=== PATIENT | male | born 1955 | race Caucasian/White ===

== ENCOUNTER → 2017-12-29 06:14 | Outpatient (CLI) | payer MEDICAID, SELFPAY ==
--- NOTE | 2017-12-29 08:42 | STRESSREP ---
Stress Test Report Pharmacologic myocardial perfusion stress test. 62-year-old man with a history of chest pain. Stress protocol: Resting EKG demonstrates normal sinus rhythm with a rate of 79 bpm resting blood pressure is 140/90 mmHg. On 4 mg of regadenoson was infused per usual protocol followed by rapid intravenous saline flush injection continuous EKG monitoring was performed. The heart rate was 98 bpm which was 62% of maximum predicted heart rate the maximum workload attained was 1 metabolic equivalent. At rest there were no ST or T-wave changes noted to suggest abnormal flow reserve at peak infusion no ST or T-wave changes were noted to suggest abnormal flow reserve. No clinical angina was noted. Myocardial perfusion protocol: 15.0 mCi of technetium 99m sestamibi was injected at rest. 0.4 mg regadenoson was infused per usual protocol. At peak infusion 45.0 mCi of technetium 99m sestamibi was injected. Stress images were obtained. Stress and rest images were reconstructed and compared in the short axis vertical long and horizontal long axis. Gated images were also obtained. Perfusion SPECT analysis: Review of the stress images demonstrate normal uptake of tracer noted in the septum anterior wall and lateral wall. The mid inferior lateral and basal wall has a medium-sized defect on the stress images. The resting images demonstrate mild improvement in this area suggesting mild ischemia noted in the basal inferior wall as well as the basal inferolateral wall. Gated SPECT analysis: The gated ejection fraction is noted to be 42%. Conclusion: Pharmacologic myocardial perfusion stress test with evidence of basal inferior ischemia and basal inferolateral ischemia.
== END ==
PROVIDERS: Visit Provider Nurse Practitioner Family
DX: I25.10 Atherosclerotic heart disease of native coronary artery without angina pectoris (principal); R07.9 Chest pain, unspecified
CPT/HCPCS: 78452; 93017; A9500; A4216; J2785

== ENCOUNTER → 2018-01-22 07:06 | Outpatient (CLI) | payer MEDICAID, SELFPAY ==
[2018-01-22 09:03] LABS: Absolute Lymphocyte Count 3.24 X10^3/ul (0.83-4.51); Absolute Neutrophil Count 7.4 X10^3/uL (2.0-7.7); Basophil# 0.04 X10^3/uL; Basophil% 0.3 % (0-1); Eosinophil# 0.21 X10^3/uL; Eosinophils% 1.7 % (0-5); Hematocrit 49.3 % (40-54); Hemoglobin 16.2 g/dl (13.0-16.5); Lymphocyte # 3.24 X10^3/ul (4.0); Lymphocyte % 25.7 % (19-41); Mean Corp Hgb Conc 32.9 g/gl (32-36); Mean Corpuscular Hgb 31.8 pg (27.0-32.0); Mean Corpuscular Volume 96.7 fL (80-94); Mean Platelet Vol. 11.7 fl (6.2-12.0); Monocyte# 1.59 X10^3/uL; Monocyte% 12.6 % (0-10); Neutrophil # 7.43 X10^3/uL (2.7-7.7); Platelet Count 255 K/mm3 (150-450); RBC Distribution Width CV 13.5 % (11.6-14.6); RBC Distribution Width SD 47.9 fl (35.1-43.9); White Blood Count 12.6 K/mm3 (4.4-11.0)
[2018-01-22 09:04] LABS: Differential Indicated SCAN CRITERIA MET; POSITIVE COUNT NO; POSITIVE DIFFERENTIAL YES; POSITIVE MORPHOLOGY NO
[2018-01-22 09:05] LABS: International Normalized Ratio 1.1; Prothrombin Time (Protime)PT. 13.8 SECONDS (11.7-14.9)
[2018-01-22 09:25] LABS: Anion Gap 7 (5-15); BUN 12 mg/dL (7-18); BUN/Creat Ratio 11.2 RATIO (10-20); Calcium,Total 8.4 mg/dL (8.5-10.1); Chloride 104 mmol/L (98-107); Creatinine, Serum 1.07 mg/dL (0.70-1.30); EST Glomerular Filtration Rate 74 mL/min (>60); Est Glom Filt Rate - Afr Amer 90 mL/min (>60); Glucose 121 mg/dL (74-106); Potassium 3.7 mmol/L (3.5-5.1); Sodium Level 141 mmol/L (136-145)
[2018-01-22 09:33] LABS: Reactive Lymphocyte RARE
[2018-01-22 14:01] LABS: ALB/GLOB Ratio 1.2 RATIO (0.9-2.4); AST(SGOT) 34 U/L (15-37); Alanine Aminotransfer ALT/SGPT 59 U/L (16-61); Albumin, Serum 3.8 g/dL (3.2-5.0); Alkaline Phosphatase 63 U/L (45-117); Anion Gap 7 (5-15); BUN 13 mg/dL (7-18); BUN/Creat Ratio 11.9 RATIO (10-20); Calcium,Total 8.2 mg/dL (8.5-10.1); Chloride 106 mmol/L (98-107); Cholesterol 210 mg/dL (200); Creatinine, Serum 1.09 mg/dL (0.70-1.30); EST Glomerular Filtration Rate 73 mL/min (>60); Est Glom Filt Rate - Afr Amer 88 mL/min (>60); Globulin 3.3 g/dL (2.2-4.2); Glucose 122 mg/dL (74-106); High Density Lipoprotein 28 mg/dL; Potassium 3.8 mmol/L (3.5-5.1); Protein, Total 7.1 g/dL (6.4-8.2); Sodium Level 141 mmol/L (136-145); Triglycerides 189 mg/dL; Very Low Density Lipoprotein 38 mg/dL (5-40)
[2018-01-22 14:39] LABS: Hemoglobin A1c 6.3 % (4.2-6.3)
== END ==
PROVIDERS: Visit Provider Internal Medicine Cardiovascular Disease
DX: I25.10 Atherosclerotic heart disease of native coronary artery without angina pectoris (principal); I10 Essential (primary) hypertension; R73.09 Other abnormal glucose; R07.9 Chest pain, unspecified
CPT/HCPCS: 36415; 80048; 80053; 80061; 83036; 85025; 85610

== ENCOUNTER → 2018-01-23 14:10 | Outpatient (CLI) | payer MEDICAID, SELFPAY ==
--- NOTE | 2018-01-23 14:11 | RAD_ITS ---
STUDY: X-RAY CHEST REASON FOR EXAM: Male, 62 years old. Chest pain. Increased shortness of breath. TECHNIQUE: PA and lateral views of the chest. COMPARISON: Comparison is made with prior study dated October 11, 2016. FINDINGS: Stable increased interstitial markings at the lung bases suggest mild bibasilar scarring. There is no demonstrated pleural abnormality. Normal size heart. Normal mediastinum and skyler. Normal visualized pulmonary arteries. There is atherosclerotic tortuosity of the aortic arch and descending thoracic aorta. There are degenerative changes of the visualized thoracic spine. Normal visualized ribs, clavicles, and shoulders. There is no demonstrated abnormality of the visualized soft tissue structures of the upper abdomen. RAD/Chest PA and Lateral IMPRESSION: Stable mild increased markings at the lung bases suggestive of bibasilar scarring. Electronically Signed: Shashi Strong MD at 14:34 EDT Tel [phone], Service support ,
== END ==
PROVIDERS: Visit Provider Internal Medicine Cardiovascular Disease
DX: I25.10 Atherosclerotic heart disease of native coronary artery without angina pectoris (principal); R07.9 Chest pain, unspecified
CPT/HCPCS: 71046

== ENCOUNTER → 2018-01-24 06:48 | Day surgery (SDC) | payer MEDICAID, SELFPAY ==
[2018-01-23 10:33] VITALS: BMI 42.7
--- NOTE | 2018-01-24 12:41 | CL.D_ITS ---
Patient Name: ALEJANDRO BASS Study Date: 01/24/2018 Performing: Clifford Pena MD Ht: 73 inches 185.42 cm : 1955 Wt: 340.4 lbs 154.22 kg Age: 62 Gender: male BSA: 2.7 PROCEDURE(S) PERFORMED [id number]/LV CLINICAL PROFILE AND INDICATIONS INDICATIONS: 62-year-old man with a history of shortness of breath and chest discomfort. Stress/Imaging Stress/Image Study Performed: No CAD Presentations: Stable angina. CONCLUSIONS Known occluded right coronary artery with [id number] collaterals. Moderate disease noted in the c ircumflex artery. RECOMMENDATIONS Medical therapy DESCRIPTION OF PROCEDURE The patient arrived to the procedure lab. The risks and benefits of the procedure as well as a full d escription of our services here and current unavailability of surgical backup were fully explained to the patient and/or their significant other prior to the catheterization. The Timeout was completed, verifying the correct patient and procedure. The patient's procedural site was prepped and draped in the usual fashion. Local anesthetic was given subcutaneously to right radial region with Lidocaine 2% . Using a modified Seldinger technique, arterial access was obtained via the right radial artery, a 6 Fr sheath was inserted. Left Coronary Artery selective angiography was performed in multiple views u sing a 5 Fr. 4.0 [place] catheter. Right Coronary Artery selective angiography was then performed in mu ltiple views using a 5 Fr. 4.0 [place] catheter. Left Ventriculography was performed in JARAMILLO projection using a 5 Fr. Pigtail catheter. LV to AO pullback pressures were then recorded.The arterial sheath wa s pulled and a TR Band was applied for hemostasis. 18cc air CORONARY ANGIOGRAPHY DOMINANCE: Right Dominant LEFT HEART ASSESSMENT Left Ventricular Ejection Fraction: by LV Gram 45 % Inferior Basal Akinesis Normal Left Ventricular systolic function LEFT MAIN: Angiographically normal LEFT ANTERIOR DECENDING ARTERY: Mild luminal irregularities CIRCUMFLEX ARTERY: Mild luminal irregularities OM 3: Proximal - 70 % Stenosis COLLATERAL FLOW: Collateral flow from Left to Right COMPLICATIONS No Complications PROCEDURE MEDICATIONS Fentanyl 50 mcg IV Versed 1 mg IV Versed 1 mg IV Oxygen: 2 L/min via nasal cannula Heparin diluted in 23cc Heparinized saline. Patient given 10cc IA of this solution. 01/24/2018 08:08: 04 Verapamil 2.5mg, Ntg 100mcgs, 2000 units of Heparin diluted in 23cc Heparinized saline. Patient give n 10cc IA of this solution. 01/24/2018 08:08:04 SUMMARY OF HEMODYNAMIC DATA Time AIR REST ECG 07:28:50 ECG 07:58:04 AO 129/87 (107) SA 08:11:48 LV 137/-9, 9 08:22:21 LV 128/-7, 1 08:22:29 LV 126/8, 12 08:23:37 LVp 134/8, 13 08:23:55 AOp 137/78 (104) 08:24:01 Signed By Clifford Pena MD On 01/24/2018 08:36:05 Clifford Pena MD
== END ==
PROVIDERS: Visit Provider Internal Medicine Cardiovascular Disease
DX: I25.119 Atherosclerotic heart disease of native coronary artery with unspecified angina pectoris (principal); I51.7 Cardiomegaly; I10 Essential (primary) hypertension; R07.89 Other chest pain; G47.33 Obstructive sleep apnea (adult) (pediatric); E78.00 Pure hypercholesterolemia, unspecified; E66.9 Obesity, unspecified; E66.01 Morbid (severe) obesity due to excess calories; Z68.41 Body mass index [BMI] 40.0-44.9, adult; E78.5 Hyperlipidemia, unspecified; J44.9 Chronic obstructive pulmonary disease, unspecified; F17.200 Nicotine dependence, unspecified, uncomplicated; N40.0 Benign prostatic hyperplasia without lower urinary tract symptoms; K21.9 Gastro-esophageal reflux disease without esophagitis; Z79.01 Long term (current) use of anticoagulants; Z79.82 Long term (current) use of aspirin; Z79.899 Other long term (current) drug therapy
CPT/HCPCS: 93458; 99152; 99153; J3010; J7040; C1769; C1894; Q9967

== ENCOUNTER → 2018-02-06 07:36 | Outpatient (CLI) | payer MEDICAID, SELFPAY ==
--- NOTE | 2018-02-06 13:15 | PFT ---
INTRODUCTION: The patient is a 62-year-old male currently under the care of the [facility] that presents for pulmonary function testing secondary to a diagnosis of shortness of breath. Respiratory therapy reports good patient effort reports no other concerns. Bronchodilators were used during testing. INTERPRETATION: Forced expiration spirometry demonstrates no evidence of a large airways obstructive ventilatory defect. There was a significant bronchodilator response noted. Spirograms are of fair quality and plateau gradually. Body plethysmography was performed and reveals a decreased TLC to 5.07 L, 71% of predicted, indicative of a mild restrictive ventilatory defect. The remainder of the lung volumes are symmetrically reduced. Diffusing capacity by single breath CO is severely reduced at 31% of predicted. IMPRESSION: These pulmonary function studies demonstrate the presence of a mild restrictive ventilatory impairment with a disproportionate severe reduction in diffusing capacity, raising the concern for a possible underlying pulmonary vascular disorder such as pulmonary hypertension. Consideration can be given to obtaining a surface echocardiogram if clinically indicated.
--- NOTE | 2018-02-06 13:18 | PFT_ITS ---
INTRODUCTION: The patient is a 62-year-old male currently under the care of the [facility] that presents for pulmonary function testing secondary to a diagnosis of shortness of breath. Respiratory therapy reports good patient effort reports no other concerns. Bronchodilators were used during testing. INTERPRETATION: Forced expiration spirometry demonstrates no evidence of a large airways obstructive ventilatory defect. There was a significant bronchodilator response noted. Spirograms are of fair quality and plateau gradually. Body plethysmography was performed and reveals a decreased TLC to 5.07 L, 71% of predicted, indicative of a mild restrictive ventilatory defect. The remainder of the lung volumes are symmetrically reduced. Diffusing capacity by single breath CO is severely reduced at 31% of predicted. IMPRESSION: These pulmonary function studies demonstrate the presence of a mild restrictive ventilatory impairment with a disproportionate severe reduction in diffusing capacity, raising the concern for a possible underlying pulmonary vascular disorder such as pulmonary hypertension. Consideration can be given to obtaining a surface echocardiogram if clinically indicated.
== END ==
DX: R06.09 Other forms of dyspnea (principal); F17.200 Nicotine dependence, unspecified, uncomplicated
CPT/HCPCS: 94060; 94726; 94729

== ENCOUNTER → 2018-02-12 13:13 | Outpatient (CLI) | payer MEDICAID, SELFPAY ==
--- NOTE | 2018-02-12 13:15 | CT_ITS ---
STUDY: LOW DOSE CT LUNG CANCER SCREENING REASON FOR EXAM: Male, 62 years old. Screening for lung cancer, RADIATION DOSAGE (If Supplied By Facility): CTDIvol = ( 3.40 ) mGy, DLP = ( 115.28 ) mGycm TECHNIQUE: No contrast was administered. Low dose technique was utilized (average mAS-38 and kVp 120). 1.25 mm axial source images with a slice interval of 1.25-mm were reconstructed in lung windows. 2.5 mm axial source images with a slice interval of 2.5-mm were reconstructed in lung windows. 5.0 mm axial source images with a slice interval of 5.0-mm were reconstructed in soft tissue windows. Nodule measured using lung windows on PACS and/or independent workstation with automated measurement of minimum and maximum diameter. Nodule measurement reported as average diameter rounded to the nearest whole number. Growth is defined as an increase ins size of greater than 1.5 mm. COMPARISON: None. NODULES: There is a nodule in the lateral segment of right middle lobe measures 9 mm in diameter has nonspecific appearance may represent a neoplastic process. A follow-up in 6 months or a PET/CT scan may be warranted to exclude a neoplastic process. Subpleural reticular interstitial opacities are seen more prominent in the upper lobes are suggestive of chronic interstitial lung disease. There is no demonstrated pleural abnormality. Normal heart and pericardium. Normal mediastinum. Normal hilar regions. Normal unenhanced pulmonary arteries. Normal aorta arch and descending thoracic aorta. Normal osseous structures. There is no demonstrated abnormality of the visualized upper abdomen. CT/Low Dose CT Lung Screening IMPRESSION: Lung-RADS category 4. There is a nodule in the lateral segment of right middle lobe measures 9 mm in diameter has nonspecific appearance may represent a neoplastic process. A follow-up in 6 months or a PET/CT scan may be warranted to exclude a neoplastic process. Recommendation: Routine screening CT scan in one year. IMPORTANT NOTES FOR USE: ACR Lung-RADS Version 1.0 Assessment Categories Release Date: March 10, 2014 Category: Coded 0-4 bases on nodule(s) with highest degree of suspicion. Negative screen is defined as categories 1 and 2; a positive screen is defined as categories 3 and 4. Category 3 and 4A nodules that are unchanged on interval CT should be coded as category 2, and individuals returned to screening in 12 months. Category 4X: Category 3 or 4 nodules with additional imaging findings that increase the suspicion of lung cancer, such as spiculation, GGN that doubles in size in 1 year, enlarged lymph notes, etc. Category Modifiers: S (significant finding unrelated to lung cancer) and C (prior history of treated lung cancer) may be added to the 0-4 Lung-RADS Electronically Signed: Rosa Carvajal MD at 14:05 EDT Tel , Service support ,
== END ==
DX: Z12.2 Encounter for screening for malignant neoplasm of respiratory organs (principal); Z87.891 Personal history of nicotine dependence; R06.09 Other forms of dyspnea
CPT/HCPCS: G0297

== ENCOUNTER 2018-02-16 16:17 | Emergency (ER) | payer MEDICAID, SELFPAY ==
[2018-02-16 16:19] VITALS: BP 165/113; PULSE 87; RESP 24; TEMP 36.1; O2SAT 95; BMI 43.6
--- NOTE | 2018-02-16 16:43 | EKG12_ITS ---
Test Reason : POSS BLOT CLOT Blood Pressure : / mmHG Vent. Rate : 077 BPM Atrial Rate : 077 BPM P-R Int : 146 ms QRS Dur : 092 ms QT Int : 400 ms P-R-T Axes : 021 -04 026 degrees QTc Int : 452 ms Normal sinus rhythm Nonspecific T wave abnormality Abnormal ECG Confirmed by CHUCKY MORENO, BERTRAM ([id number]), art editor LENKA CHONG ([id number]) on 02/20/2018 8:32:05 AM Referred By: [facility] Confirmed By:BERTRAM LOCKE MD
--- NOTE | 2018-02-16 16:57 | US_ITS ---
STUDY: VENOUS DOPPLER ULTRASOUND - RIGHT LOWER EXTREMITY REASON FOR EXAM: Male, 62 years old. Right leg swelling. TECHNIQUE: Ultrasound evaluation of the deep vein system to include gonzalez-scale imaging and compression was performed. Gonzalez-scale imaging and Doppler sonographic evaluation, including duplex spectral analysis and qualitative color flow sonography, was performed. COMPARISON: None. FINDINGS: Common Femoral Vein: Normal compression, spontaneity and augmentation. Normal color Doppler. Common Femoral Vein/Greater Saphenous Junction: Normal compression. Deep Femoral Vein: Normal compression. Femoral Proximal: Normal compression. Femoral Middle: Normal compression, spontaneity and augmentation. Normal color Doppler. Femoral Distal: Normal compression. Popliteal Vein: Normal compression, spontaneity and augmentation. Normal color Doppler. Posterior Tibial Vein: Normal compression. Normal color Doppler. Peroneal Vein: Normal compression. There is no demonstrated deep venous thrombosis. US/Venous Duplex Imag/Limited/Uni IMPRESSION: No demonstrated DVT of the right lower extremity. Electronically Signed: Mukund Bruno MD at 19:19 EDT , Service support ,
--- NOTE | 2018-02-16 17:08 | ED.RN ---
this rn called to [facility] to obtain a medication list. tech to fax list to er.
[2018-02-16 17:11] LABS: Absolute Lymphocyte Count 2.24 X10^3/ul (0.83-4.51); Absolute Neutrophil Count 7.7 X10^3/uL (2.0-7.7); Basophil# 0.02 X10^3/uL; Basophil% 0.2 % (0-1); Eosinophil# 0.17 X10^3/uL; Eosinophils% 1.5 % (0-5); Hematocrit 48.3 % (40-54); Hemoglobin 15.7 g/dl (13.0-16.5); Lymphocyte # 2.24 X10^3/ul (4.0); Lymphocyte % 19.9 % (19-41); Mean Corp Hgb Conc 32.5 g/gl (32-36); Mean Corpuscular Volume 95.5 fL (80-94); Mean Platelet Vol. 10.6 fl (6.2-12.0); Monocyte# 1.12 X10^3/uL; Monocyte% 9.9 % (0-10); Neutrophil # 7.69 X10^3/uL (2.7-7.7); Neutrophil % 68.2 % (47-70); Platelet Count 245 K/mm3 (150-450); RBC Distribution Width CV 13.7 % (11.6-14.6); RBC Distribution Width SD 47.3 fl (35.1-43.9); Red Blood Count 5.06 M/mm3 (4.6-6.2); White Blood Count 11.3 K/mm3 (4.4-11.0)
[2018-02-16 17:12] LABS: POSITIVE COUNT NO; POSITIVE DIFFERENTIAL NO; POSITIVE MORPHOLOGY NO
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
[2018-02-16 17:26] LABS: D-Dimer Quantitative (DVT/PE) 0.73 FEU/ug/m (0.27-0.49)
[2018-02-16 17:33] LABS: Anion Gap 6 (5-15); BUN 18 mg/dL (7-18); Calcium,Total 8.3 mg/dL (8.5-10.1); Chloride 108 mmol/L (98-107); EST Glomerular Filtration Rate 50 mL/min (>60); Est Glom Filt Rate - Afr Amer 61 mL/min (>60); Estimated Creatinine Clearance 57.71 ml/min; Glucose 118 mg/dL (74-106); Sodium Level 144 mmol/L (136-145)
--- NOTE | 2018-02-16 17:39 | CT_ITS ---
STUDY: CTA CHEST/THORAX REASON FOR EXAM: Male, 62 years old. Shortness of breath for 2-3 months. Right leg swelling and pain. Patient is on anticoagulants. RADIATION DOSAGE (If Supplied By Facility): CTDIvol = ( 28.56 ) mGy, DLP = ( 1028.88 ) mGycm TECHNIQUE: The examination was performed with the intravenous administration of 100CC ml of Isovue 370 contrast material. Post-processing of the angiographic images was performed, with multiplanar reformation and 3D reconstruction. Individualized dose optimization techniques were used for this CT. COMPARISON: Low-dose screening CT chest/thorax February 12, 2018. FINDINGS: Normal enhancement of the main pulmonary artery and right and left pulmonary arteries. Normal enhancement of the bilateral peripheral pulmonary arteries. There is no demonstrated pulmonary embolism. Normal thoracic aorta and visualized great vessels. There is no demonstrated aortic dissection. Normal heart and pericardium. A well-defined 4.05 x 3.4 x 5.25 cm low-density along the right cardiac margin abutting the diaphragm consistent with a pericardial cyst. There are calcifications of the coronary arteries. There is mild adenopathy in the bilateral skyler, pericarinal tissues, and aorticopulmonary window. A right subcarinal lymph node, for example, measures 2.0 x 2.45 x 1.4 cm. A node in the aorticopulmonary window is 2.7 x 1.2 x 1.2 cm. There is a 3.45 x 1.7 x 1.4 cm lymph node in the right precarinal soft tissues. A node along the anterior margin of the right lower lobe pulmonary artery is 1.5 x 1.2 x 2.25 cm. Normal visualized trachea and bronchi. The lungs are well expanded. There are scattered, predominantly centrilobular emphysematous changes, seen most numerous in the apices. There is also an element of bronchiectasis. Occasional small curvilinear stranding densities or subsegmental zones of subtle ill-defined density likely represent minor linear atelectasis, minor subsegmental volume loss and mixed with focal peripheral air trapping, and/or other chronic parenchymal change. Normal pleura. Normal chest wall structures. There are multilevel degenerative changes of the thoracic spine. Normal visualized upper abdomen. CT/CTA Chest W/WO Contrast IMPRESSION: 1. No demonstrated pulmonary embolism or arterial dissection. 2. Mild adenopathy in the pericarinal tissues, aorticopulmonary window, and bilateral skyler. 3. Emphysematous changes as well as an element of bronchiectasis and small, multifocal regions of parenchymal scarring. 4. Incidental note of 4 cm right pericardial cyst. 5. Atherosclerotic calcifications of the coronary arteries. Heart size is normal. Electronically Signed: Mukund Bruno MD at 19:17 EDT , Service support ,
[2018-02-16 18:57] VITALS: PULSE 82; RESP 20; O2SAT 96
[2018-02-16 19:09] VITALS: BP 184/94; PULSE 74; RESP 14; O2SAT 93
--- NOTE | 2018-02-16 19:32 | ED.DEP ---
ED Disposition - Plan for ED Patient: Disposition: Home or Assisted Living Chief Complaint: Lower Extremity Injury Instructions: ED Leg Swelling Bilateral, ED Dyspnea Shortness of Breath Referrals: Libby Murphy NP-Kendra [Primary Care Provider] - Colt Bundy MD [STAFF PHYSICIAN] - Keep Clarisa appointment
[2018-02-16 19:33] VITALS: BP 178/94; PULSE 84; RESP 20; O2SAT 93
== END 2018-02-16 19:41 | disposition home or self-care (01) ==
PROVIDERS: Emergency Provider Emergency Medicine; Family Provider Nurse Practitioner Family; PCP Nurse Practitioner Family
DX: R60.0 Localized edema (principal); M79.604 Pain in right leg; R06.00 Dyspnea, unspecified; G47.33 Obstructive sleep apnea (adult) (pediatric); R91.1 Solitary pulmonary nodule; E66.9 Obesity, unspecified; Z68.41 Body mass index [BMI] 40.0-44.9, adult; I25.10 Atherosclerotic heart disease of native coronary artery without angina pectoris; I50.1 Left ventricular failure, unspecified; I10 Essential (primary) hypertension; E78.00 Pure hypercholesterolemia, unspecified; J44.9 Chronic obstructive pulmonary disease, unspecified; Z79.82 Long term (current) use of aspirin; Z79.899 Other long term (current) drug therapy; Z72.0 Tobacco use
CPT/HCPCS: 71275; 80048; 84484; 85025; 85379; 93005; 93971; 96360; 96361; 99284; J7030; J7040; Q9967; A4216

== ENCOUNTER → 2018-02-28 12:13 | Outpatient (CLI) | payer MEDICAID, SELFPAY ==
[2018-02-28 13:07] VITALS: PULSE 100; PULSE 104; PULSE 106; PULSE 80; PULSE 87; PULSE 94; PULSE 98; O2SAT 84; O2SAT 87; O2SAT 88; O2SAT 89; O2SAT 90; O2SAT 91
--- NOTE | 2018-02-28 13:19 | CPS ---
PATIENT ARRIVED ON ROOM AIR FOR TESTING. PATIENT WAS NOTED TO BE CYANOTIC AND C/O SHORTNESS OF BREATH. SPO2 ON ARRIVAL TO ROOM WAS 84% ROOM AIR PRIOR TO BEGINNING 6 MIN WALK TESTING. PLACED ON 2LPM TO START TEST. SPO2 AT REST ON 2LPM WAS 91%. PATIENT RESTED AT MINUTE 1 D/T SOB/LEG FATIGUE, SPO2 88%, INCREASED TO 3LPM. HE AGAIN RESTED AT MINUTE 3 D/T LEG FATIGUE AND SOB. PATIENT REMAINED ON 3LPM UNTIL MINUTE 5, WHICH HIS SPO2 WAS 87%, HE WAS RESTED AND O2 INCREASED TO 4LPM FOR REMAINDER OF EXERCISE.
--- NOTE | 2018-02-28 15:49 | PCM.PSN.6M ---
PSN 6 Minute Walk Test - 6 Minute Walk Test 6 Minute Walk Test: 6 Minute Walk Test PSN:6-Minute Walk Test Start: 02/28/18 13:07 Freq: Status: Active Protocol: [id number] Document 02/28/18 13:07 [facility] (Rec: 02/28/18 13:31 [facility] [id number]) 6 Minute Walk Test Date Performed 02/28/18 Time Performed 12:30 Height 6 ft 1 in Weight: 145.15 kg Weight in Pounds 320.[address]: Colt Bundy Assistive device used: None Pre-test Oxygen Delivery Method Room Air Pulse Ox (%) 84 Pulse Rate (60-100 beats/min) 87 Dyspnea Grazyna Scale (0-10) 5 Reported Symptoms Cyanotic Increased Work of Breathing Dizziness 1st minute Oxygen Flow Rate (L/min) (L/min) 2 Oxygen Delivery Method Nasal Cannula Pulse Ox (%) 88 Pulse Rate (60-100 beats/min) 94 Dyspnea Grazyna Scale (0-10) 3 Number of Rests Taken 1 Reported Symptoms Increased Work of Breathing 2nd minute Oxygen Flow Rate (L/min) (L/min) 2 Oxygen Delivery Method Nasal Cannula Pulse Ox (%) 91 Pulse Rate (60-100 beats/min) 100 Dyspnea Grazyna Scale (0-10) 3 3rd minute Oxygen Flow Rate (L/min) (L/min) 3 Oxygen Delivery Method Nasal Cannula Pulse Ox (%) 89 Pulse Rate (60-100 beats/min) 104 H Dyspnea Grazyna Scale (0-10) 4 Reported Symptoms Increased Work of Breathing 4th minute Oxygen Flow Rate (L/min) (L/min) 3 Oxygen Delivery Method Nasal Cannula Pulse Ox (%) 90 Pulse Rate (60-100 beats/min) 100 Dyspnea Grazyna Scale (0-10) 3 Reported Symptoms Increased Work of Breathing 5th minute Oxygen Flow Rate (L/min) (L/min) 3 Oxygen Delivery Method Nasal Cannula Pulse Ox (%) 87 Pulse Rate (60-100 beats/min) 106 H Dyspnea Grazyna Scale (0-10) 4 Number of Rests Taken 1 Reported Symptoms Cyanotic Increased Work of Breathing 6th minute Oxygen Flow Rate (L/min) (L/min) 4 Oxygen Delivery Method Nasal Cannula Pulse Ox (%) 91 Pulse Rate (60-100 beats/min) 98 Dyspnea Grazyna Scale (0-10) 4 Reported Symptoms Increased Work of Breathing Post-test Oxygen Flow Rate (L/min) (L/min) 2 Oxygen Delivery Method Nasal Cannula Pulse Ox (%) 90 Pulse Rate (60-100 beats/min) 80 Dyspnea Grazyna Scale (0-10) 1 Full Laps Walked 12 Partial Lap, Number of Tiles Walked 42 Total Distance Walked (ft) 750 02/28/18 13:19 Cardiopulmonary Services by Lala Mobley PATIENT ARRIVED ON ROOM AIR FOR TESTING. PATIENT WAS NOTED TO BE CYANOTIC AND C/O SHORTNESS OF BREATH. SPO2 ON ARRIVAL TO ROOM WAS 84% ROOM AIR PRIOR TO BEGINNING 6 MIN WALK TESTING. PLACED ON 2LPM TO START TEST. SPO2 AT REST ON 2LPM WAS 91%. PATIENT RESTED AT MINUTE 1 D/T SOB/LEG FATIGUE, SPO2 88%, INCREASED TO 3LPM. HE AGAIN RESTED AT MINUTE 3 D/T LEG FATIGUE AND SOB. PATIENT REMAINED ON 3LPM UNTIL MINUTE 5, WHICH HIS SPO2 WAS 87%, HE WAS RESTED AND O2 INCREASED TO 4LPM FOR REMAINDER OF EXERCISE. Initialized on 02/28/18 13:19 - END OF NOTE - Interpretation Interpretation: The patient was noted to be 84% on room air. The patient was placed on 2 L nasal cannula with improvement to 88%. The patient was able to ambulate 750 feet required a total of 4 L nasal cannula to maintain saturations at acceptable levels. Patient did take 3 breaks throughout testing. These findings are consistent with a respiratory limitation exercise tolerance. - Recommendations Recommendations: The patient requires 2 L nasal cannula oxygen at rest, but up to 4 L nasal cannula oxygen with exertion.
--- NOTE | 2018-02-28 15:54 | WT_ITS ---
PSN 6 Minute Walk Test - 6 Minute Walk Test 6 Minute Walk Test: 6 Minute Walk Test PSN:6-Minute Walk Test Start: 02/28/18 13: 07 Freq: Status: Active Protocol: [id number] Document 02/28/18 13:07 COUNT INCLUDES THE [facility] (Rec: 02/28/18 13:31 COUNT INCLUDES THE [facility] [id number]) 6 Minute Walk Test Date Performed 02/28/18 Time Performed 12:30 Height 6 ft 1 in Weight: 145.15 kg Weight in Pounds 320.[address]: Colt Bundy Assistive device used: None Pre-test Oxygen Delivery Method Room Air Pulse Ox (%) 84 Pulse Rate (60-100 beats/min) 87 Dyspnea Grazyna Scale (0-10) 5 Reported Symptoms Cyanotic Increased Work of Breathing Dizziness 1st minute Oxygen Flow Rate (L/min) (L/min) 2 Oxygen Delivery Method Nasal Cannula Pulse Ox (%) 88 Pulse Rate (60-100 beats/min) 94 Dyspnea Grazyna Scale (0-10) 3 Number of Rests Taken 1 Reported Symptoms Increased Work of Breathing 2nd minute Oxygen Flow Rate (L/min) (L/min) 2 Oxygen Delivery Method Nasal Cannula Pulse Ox (%) 91 Pulse Rate (60-100 beats/min) 100 Dyspnea Grazyna Scale (0-10) 3 3rd minute Oxygen Flow Rate (L/min) (L/min) 3 Oxygen Delivery Method Nasal Cannula Pulse Ox (%) 89 Pulse Rate (60-100 beats/min) 104 H Dyspnea Grazyna Scale (0-10) 4 Reported Symptoms Increased Work of Breathing 4th minute Oxygen Flow Rate (L/min) (L/min) 3 Oxygen Delivery Method Nasal Cannula Pulse Ox (%) 90 Pulse Rate (60-100 beats/min) 100 Dyspnea Grazyna Scale (0-10) 3 Reported Symptoms Increased Work of Breathing 5th minute Oxygen Flow Rate (L/min) (L/min) 3 Oxygen Delivery Method Nasal Cannula Pulse Ox (%) 87 Pulse Rate (60-100 beats/min) 106 H Dyspnea Grazyna Scale (0-10) 4 Number of Rests Taken 1 Reported Symptoms Cyanotic Increased Work of Breathing 6th minute Oxygen Flow Rate (L/min) (L/min) 4 Oxygen Delivery Method Nasal Cannula Pulse Ox (%) 91 Pulse Rate (60-100 beats/min) 98 Dyspnea Grazyna Scale (0-10) 4 Reported Symptoms Increased Work of Breathing Post-test Oxygen Flow Rate (L/min) (L/min) 2 Oxygen Delivery Method Nasal Cannula Pulse Ox (%) 90 Pulse Rate (60-100 beats/min) 80 Dyspnea Grazyna Scale (0-10) 1 Full Laps Walked 12 Partial Lap, Number of Tiles Walked 42 Total Distance Walked (ft) 750 02/28/18 13:19 Cardiopulmonary Services by Lala Mobley PATIENT ARRIVED ON ROOM AIR FOR TESTING. PATIENT WAS NOTED TO BE CYANOTIC AND C/ O SHORTNESS OF BREATH. SPO2 ON ARRIVAL TO ROOM WAS 84% ROOM AIR PRIOR TO BEGINNING 6 MIN WALK TESTING. PLACED ON 2LPM TO START TEST. SPO2 AT REST ON 2LPM WAS 91%. PATIENT RESTED AT MINUTE 1 D/T SOB/LEG FATIGUE, SPO2 88%, INCREASED TO 3LPM. HE AGAIN RESTED AT MINUTE 3 D/T LEG FATIGUE AND SOB. PATIENT REMAINED ON 3LPM UNTIL MINUTE 5, WHICH HIS SPO2 WAS 87%, HE WAS RESTED AND O2 INCREASED TO 4LPM FOR REMAINDER OF EXERCISE. Initialized on 02/28/18 13:19 - END OF NOTE - Interpretation Interpretation: The patient was noted to be 84% on room air. The patient was placed on 2 L nasal cannula with improvement to 88%. The patient was able to ambulate 750 feet required a total of 4 L nasal cannula to maintain saturations at acceptable levels. Patient did take 3 breaks throughout testing. These findings are consistent with a respiratory limitation exercise tolerance. - Recommendations Recommendations: The patient requires 2 L nasal cannula oxygen at rest, but up to 4 L nasal cannula oxygen with exertion.
== END ==
PROVIDERS: Family Provider Nurse Practitioner Family; Visit Provider Internal Medicine Critical Care Medicine
DX: J47.9 Bronchiectasis, uncomplicated (principal)
CPT/HCPCS: 94618

== ENCOUNTER → 2018-03-08 21:58 | Outpatient (CLI) | payer MEDICAID, SELFPAY ==
[2018-03-08] MEDS: Zolpidem Tartrate 5 MG Tablet PO (21:45)
== END ==
PROVIDERS: Family Provider Nurse Practitioner Family; Visit Provider Internal Medicine Critical Care Medicine
DX: G47.10 Hypersomnia, unspecified (principal)
CPT/HCPCS: 95810

== ENCOUNTER → 2018-03-23 20:00 | Outpatient (CLI) | payer MEDICAID, SELFPAY ==
[2018-03-23] MEDS: Zolpidem Tartrate 5 MG Tablet PO (21:50)
== END ==
PROVIDERS: Family Provider Nurse Practitioner Family; Referring Provider Nurse Practitioner Family; Visit Provider Internal Medicine Critical Care Medicine
DX: G47.10 Hypersomnia, unspecified (principal)
CPT/HCPCS: 95811

== ENCOUNTER → 2018-05-17 12:34 | Outpatient (CLI) | payer MEDICAID, SELFPAY ==
[2018-05-17 13:51] LABS: Anion Gap 8 (5-15); BUN 10 mg/dL (7-18); BUN/Creat Ratio 9.3 RATIO (10-20); Calcium,Total 8.7 mg/dL (8.5-10.1); Chloride 102 mmol/L (98-107); Creatinine, Serum 1.08 mg/dL (0.70-1.30); EST Glomerular Filtration Rate 74 mL/min (>60); Est Glom Filt Rate - Afr Amer 89 mL/min (>60); Glucose 124 mg/dL (74-106); Potassium 3.8 mmol/L (3.5-5.1); Sodium Level 141 mmol/L (136-145)
== END ==
PROVIDERS: Family Provider Nurse Practitioner Family; PCP Nurse Practitioner Family; Visit Provider Nurse Practitioner Family
DX: I27.23 Pulmonary hypertension due to lung diseases and hypoxia (principal)
CPT/HCPCS: 36415; 80048

== ENCOUNTER → 2018-05-21 16:28 | Outpatient (CLI) | payer MEDICAID, SELFPAY ==
--- NOTE | 2018-05-21 16:30 | CT_ITS ---
STUDY: CT CHEST WITHOUT CONTRAST REASON FOR EXAM: Male, 62 years old. Nodule for follow-up. RADIATION DOSAGE (If Supplied By Facility): CTDIvol = ( 20.15 ) mGy, DLP = ( 745.16 ) mGycm TECHNIQUE: Transaxial imaging was performed without the administration of intravenous contrast material. Individualized dose optimization techniques were used for this CT. COMPARISON: February 12, 2018. February 16, 2018. Chest x-ray January 23, 2018. FINDINGS: Scattered areas of fibrosis. No focal infiltrates or effusions. No pneumothorax. Again noted is a noncalcified nodule within the anterolateral aspect of the right middle lobe axial image 73 series 4. The nodule measures 5 mm greatest dimension. As measured by this examiner on the prior exams the nodule measured 7 mm on the study of February 16, 2018 and 6 mm on the study of February 12, 2018. Normal heart and pericardium. Right paratracheal lymph node measuring 1.3 cm. Left paratracheal lymph node measuring 1.0 cm. AP window lymph node measuring 2.3 x 1.2 cm. Normal hilar regions. Normal unenhanced pulmonary arteries. Normal aorta arch and descending thoracic aorta. Mild multilevel degenerative changes of the thoracic spine. Hepatic steatosis. CT/Chest without Contrast IMPRESSION: No acute findings in the chest. Right middle lobe noncalcified nodule has not increased in size and is actually measures slightly smaller as compared to the prior studies. Recommend follow-up noncontrast CT in 18 to 24 months from February 2018. Mild chronic interstitial lung disease. Mild mediastinal lymphadenopathy unchanged. Fatty liver. Electronically Signed: Eligio Saravia MD at 7:43 EDT , Service support ,
== END ==
PROVIDERS: Family Provider Nurse Practitioner Family; PCP Nurse Practitioner Family; Visit Provider Internal Medicine Critical Care Medicine
DX: R91.1 Solitary pulmonary nodule (principal)
CPT/HCPCS: 71250

== ENCOUNTER → 2018-06-14 20:20 | Outpatient (CLI) | payer MEDICAID, SELFPAY | PROVIDERS: Visit Provider Internal Medicine Critical Care Medicine | DX: G47.33 Obstructive sleep apnea (adult) (pediatric) (principal) | CPT/HCPCS: 95811 ==

== ENCOUNTER → 2018-07-05 09:28 | Outpatient (CLI) | payer MEDICAID, SELFPAY ==
--- NOTE | 2018-07-08 11:34 | LEAS ---
Arterial Study - Arterial Study Arterial Study: This is a 62-year-old male with a history of hypertension, COPD, and smoking. The patient presents with bilateral lower extremity pain, exacerbated by ambulation. Suspecting the presence of atherosclerotic peripheral arterial occlusive disease, the patient was brought to the noninvasive vascular laboratory at this time for the purpose of bilateral noninvasive lower extremity arterial assessment. Doppler signal assessment was used to evaluate the pulses at ankle level bilaterally. The posterior tibial and dorsalis pedis pulses were triphasic bilaterally. Segmental limb pressures were obtained at ankle level bilaterally. The right ankle pressure, as determined by posterior tibial pulse, was measured at 218 mmHg. The right ankle pressure, as determined by dorsalis pedis pulse, was measured at 207 mmHg. The left ankle pressure, as determined by posterior tibial pulse, was measured at 208 mmHg. The left ankle pressure, as determined by dorsalis pedis pulse, was measured at 199 mmHg. Pulse-volume recordings were obtained bilaterally and segmentally. Waveform amplitudes appeared to be satisfactory at all levels bilaterally, including low thigh, calf, ankle, and digital levels. Resting ankle-brachial indices were calculated bilaterally. The resting right ankle-brachial index was calculated to be 1.20. The resting left ankle-brachial index was calculated to be 1.15. Impression: Based upon the findings of this resting noninvasive lower extremity arterial study, there is no evidence of significant atherosclerotic peripheral arterial occlusive disease in the lower extremities bilaterally. Triphasic waveforms were noted at ankle level bilaterally. Resting ankle-brachial indices were bilaterally normal. In summary, this represents a normal resting noninvasive lower extremity arterial study bilaterally.
== END ==
PROVIDERS: Visit Provider Nurse Practitioner Family
DX: I73.9 Peripheral vascular disease, unspecified (principal)
CPT/HCPCS: 93923

== ENCOUNTER → 2018-08-13 15:37 | Outpatient (CLI) | payer MEDICAID, SELFPAY ==
--- NOTE | 2018-08-13 15:39 | ECHOCS_ITS ---
Reason For Study: DYSPNEA Procedure This was a 2D Doppler, Color Flow transthoracic echocardiogram. Exam performed in department. Left Ventricle Normal LV size. Moderate concentric left ventricular hypertrophy. Left ventricular systolic function is normal. The estimated ejection fraction is 55 %. Stage 1 diastolic dysfunction. No regional wall motion abnormalities noted. Right Ventricle Normal RV size. Normal systolic function. Atria Normal left atrium. Normal right atrium. Mitral Valve Normal mitral valve. Tricuspid Valve Normal tricuspid valve. Mild tricuspid valve insufficiency. Pulmonary artery systolic pressure is 32 mmHg. Aortic Valve Normal aortic valve. Trisinus/trileaflet aortic valve. Pulmonic Valve Normal pulmonic valve. Great Vessels Normal aortic root. The pulmonary artery is normal size. Normal inferior vena cava. Pericardium/Pleural No pericardial effusion. MMode/2D Measurements & Calculations LVIDd: 5.9 cm IVSd: 1.4 cm LVOT diam: 2.2 cm LVIDs: 4.3 cm LVPWd: 1.9 cm LVOT area: 4.0 cm2 RVDd: 3.8 cm FS: 28.2 % Ao root diam: 4.0 cm LAV(MOD-bp): 75.8 ml LVAd ap4: 47.4 cm2 LAV(MOD-bp) Indexed: 28.6 ml/m2 EDV(MOD-sp4): 195.6 ml LAV(MOD-sp2): 71.5 ml EDV(sp4-el): 203.8 ml LAV(MOD-sp4): 70.5 ml LVAs ap4: 33.8 cm2 ESV(MOD-sp4): 113.5 ml ESV(sp4-el): 111.6 ml EF(MOD-sp4): 42.0 % EF(sp4-el): 45.3 % SV(MOD-sp4): 82.1 ml SV(sp4-el): 92.3 ml LA A4 area: 21.4 cm2 RA A4 area: 17.1 cm2 Time Measurements MV dec time: 0.23 sec Doppler Measurements & Calculations MV E max shaw: 84.6 cm/sec Lat Peak E' Shaw: 4.2 cm/sec Med Peak E' Shaw: 3.9 cm/sec MV A max shaw: 115.6 cm/sec E/E' lat: 20.2 E/E' med: 21.8 MV E/A: 0.73 Ao V2 max: 177.5 cm/sec LV V1 max: 115.6 cm/sec SV(LVOT): 92.3 ml Ao max P.6 mmHg LV V1 max P.3 mmHg Ao V2 mean: 114.2 cm/sec LV V1 mean P.7 mmHg Ao mean P.1 mmHg LV V1 mean: 76.0 cm/sec Ao V2 VTI: 28.3 cm LV V1 VTI: 23.2 cm NORMA(I,D): 3.3 cm2 NORMA(V,D): 2.6 cm2 TR max shaw: 264.6 cm/sec TR max P.0 mmHg Interpretation Summary Normal LV size. Moderate concentric left ventricular hypertrophy. Left ventricular systolic function is normal. The estimated ejection fraction is 55 %. Stage 1 diastolic dysfunction. Mild tricuspid valve insufficiency. Pulmonary artery systolic pressure is 32 mmHg. Ordering Physician: Calista Bernal Referring Physician: [facility] Performed By: Tamra Feng, GRICEL, RVT
== END ==
PROVIDERS: Referring Provider Nurse Practitioner Acute Care; Visit Provider Nurse Practitioner Acute Care
DX: R06.02 Shortness of breath (principal)
CPT/HCPCS: 93306

== ENCOUNTER 2018-10-18 13:43 | Inpatient (IN) | payer MEDICAID, SELFPAY ==
[2018-10-01 08:58] VITALS: BMI 44.9
[2018-10-18] VITALS (15 sets, daily range): BP systolic 143–194; BP diastolic 78–107; PULSE 79–100; RESP 12–26; TEMP 36.6–37; O2SAT 89–95; BMI 46.4; BMI 46.1
--- NOTE | 2018-10-18 14:11 | EKG12_ITS ---
Test Reason : SOB Blood Pressure : / mmHG Vent. Rate : 084 BPM Atrial Rate : 084 BPM P-R Int : 154 ms QRS Dur : 106 ms QT Int : 394 ms P-R-T Axes : 055 012 081 degrees QTc Int : 465 ms Sinus rhythm with occasional Premature ventricular complexes Possible Left atrial enlargement Nonspecific T wave abnormality Prolonged QT Abnormal ECG Confirmed by CHUCKY MORENO, BERTRAM ([id number]), map editor LENKA CHONG ([id number]) on 10/22/2018 2:32:55 PM Referred By: SUNITHA/ESTUARDO Confirmed By:BERTRAM LOCKE MD
--- NOTE | 2018-10-18 14:14 | ED.VISSUMM ---
- ER Visit Summary Date of Service: 10/18/18 Chief Complaint: Shortness of breath History of Present Illness: The patient is a 62 M history of COPD on 5 L nasal cannula O2. Also hypertension and sleep apnea. Is been more short of breath at baseline the last 2 days. Denies chest pain. Denies fever. Denies hemoptysis. Has a chronic cough states is nonproductive. No recent hospitalizations. No new leg swelling or pain. No prior history of DVT or PE. Physical Examination: Vital signs stable his pulse ox is 90% on 5 L which he states he normally runs 89 and 90. HEENT exam unremarkable. Posterior pharynx unremarkable. Neck nontender. No lymphadenopathy. Lungs coarse breath sounds. Bilaterally. She scattered wheezes. Prolonged expiratory phase. Heart regular rhythm no murmur. Rate about 85. Chest wall nontender. Abdomen soft nontender. Normal bowel sounds. No peritoneal signs. Extremities patient is moving all 4. He has chronic trace edema both lower extremities. Calves are nontender. No cords. Neurologically he is awake and alert with no focal motor deficits. Test Results: Chest x-ray portable 1 view of his chronic changes but no acute process. Read both by myself and the radiologist. Blood gases a pH of 7.38. Bicarb 31. CO2 of 53 and O2 is only 62 on 5 L. White count 10. Hemoglobin 14. Electrolytes BUN 14 creatinine 1.2. Gap is 7. Troponin is slightly elevated at 0.065. This may be due to his overall hypoxia. EKG shows a sinus rhythm with a rate of 84 with PVCs. No acute signs of ischemia. No significant change from prior EKG from February. Emergency Department Course and Treatment: Patient treated with IV Solu-Medrol and DuoNeb and albuterol aerosols. Repeat exam patient is doing much better after aerosol treatments and IV Solu-Medrol. He is comfortable being admitted. Treatment Plan: Hospitalist on page for admission. Disposition: Admit Impression: Acute dyspnea Acute exacerbation COPD Chronic hypoxia despite O2 Abnormal troponin This note was generated with ME911 dictation software. It may contain incorrect words, spelling, and punctuation that were not noted in review of the chart prior to signing ED Disposition - Plan for ED Patient: Chief Complaint: Shortness of Breath Referrals: Natalie Brandt [Primary Care Provider] -
--- NOTE | 2018-10-18 14:15 | RAD_ITS ---
STUDY: X-RAY CHEST REASON FOR EXAM: Male, 62 years old. Chest pain TECHNIQUE: Frontal view of the chest COMPARISON: 01/23/2018 FINDINGS: There are stable chronic increased interstitial markings at the lung bases. The lungs are otherwise clear. There are no pleural effusions. There is no pneumothorax. The heart is normal in size. The visualized osseous structures are within normal limits. RAD/Chest 1 View (Portable) IMPRESSION: No acute thoracic pathology. Electronically Signed: Luis Fernando Mcdaniel, at 14:43 EST Tel , Service support ,
--- NOTE | 2018-10-18 14:19 | ED.DCSUM_ITS ---
- ER Visit Summary Date of Service: 10/18/18 Chief Complaint: Shortness of breath History of Present Illness: The patient is a 62 M history of COPD on 5 L nasal cannula O2. Also hypertension and sleep apnea. Is been more short of breath at baseline the last 2 days. Denies chest pain. Denies fever. Denies hemoptysis. Has a chronic cough states is nonproductive. No recent hospitalizations. No new leg swelling or pain. No prior history of DVT or PE. Physical Examination: Vital signs stable his pulse ox is 90% on 5 L which he states he normally runs 89 and 90. HEENT exam unremarkable. Posterior pharynx unremarkable. Neck nontender. No lymphadenopathy. Lungs coarse breath sounds. Bilaterally. She scattered wheezes. Prolonged expiratory phase. Heart regular rhythm no murmur. Rate about 85. Chest wall nontender. Abdomen soft nontender. Normal bowel sounds. No peritoneal signs. Extremities patient is moving all 4. He has chronic trace edema both lower extremities. Calves are nontender. No cords. Neurologically he is awake and alert with no focal motor deficits. Test Results: Chest x-ray portable 1 view of his chronic changes but no acute process. Read both by myself and the radiologist. Blood gases a pH of 7.38. Bicarb 31. CO2 of 53 and O2 is only 62 on 5 L. White count 10. Hemoglobin 14. Electrolytes BUN 14 creatinine 1.2. Gap is 7. Troponin is slightly elevated at 0.065. This may be due to his overall hypoxia. EKG shows a sinus rhythm with a rate of 84 with PVCs. No acute signs of ischemia. No significant change from prior EKG from February. Emergency Department Course and Treatment: Patient treated with IV Solu-Medrol and DuoNeb and albuterol aerosols. Repeat exam patient is doing much better after aerosol treatments and IV Solu- Medrol. He is comfortable being admitted. Treatment Plan: Hospitalist on page for admission. Disposition: Admit Impression: Acute dyspnea Acute exacerbation COPD Chronic hypoxia despite O2 Abnormal troponin This note was generated with My[employer] dictation software. It may contain incorrect words, spelling, and punctuation that were not noted in review of the chart prior to signing ED Disposition - Plan for ED Patient: Chief Complaint: Shortness of Breath Referrals: Natalie Brandt [Primary Care Provider] -
[2018-10-18] MEDS: Ipratropium/Albuterol Sulfate 3 ML AMPUL.NEB INHALATION ×3 (14:23→22:54)
[2018-10-18] MEDS: Albuterol 2.5 MG/3 ML VIAL.NEB. INHALATION ×3 (14:35→16:13)
[2018-10-18] MEDS: MethylPREDNISolone 125 MG/2 ML Vial IV (14:56)
[2018-10-18 15:06] LABS: Allen Test POS; Base Excess 7 mmol/L (-2 to +2); Bicarbonate 31.9 mmol/L (22-26); Blood Gas Specimen Type ART; O2 Delivery Device Nasal Can; PO2 62 mmHG (75-100); SITE R Radial; SO2 91 % (95-99); Time Given 1454; Total Carbon Dioxide 34 mmol/L; pCO2 53.5 mmHg (35-45); pH 7.38 (7.35-7.45)
[2018-10-18 15:07] LABS: Absolute Lymphocyte Count 1.75 X10^3/ul (0.83-4.51); Absolute Neutrophil Count 7.7 X10^3/uL (2.0-7.7); Basophil# 0.02 X10^3/uL; Basophil% 0.2 % (0-1); Eosinophil# 0.07 X10^3/uL; Eosinophils% 0.7 % (0-5); Hematocrit 44.9 % (40-54); Hemoglobin 14.4 g/dl (13.0-16.5); Lymphocyte # 1.75 X10^3/ul (4.0); Lymphocyte % 16.6 % (19-41); Mean Corp Hgb Conc 32.1 g/gl (32-36); Mean Corpuscular Volume 96.6 fL (80-94); Mean Platelet Vol. 10.9 fl (6.2-12.0); Monocyte# 0.99 X10^3/uL; Monocyte% 9.4 % (0-10); Neutrophil # 7.66 X10^3/uL (2.7-7.7); Neutrophil % 72.7 % (47-70); Platelet Count 236 K/mm3 (150-450); RBC Distribution Width CV 14.4 % (11.6-14.6); RBC Distribution Width SD 50.1 fl (35.1-43.9); Red Blood Count 4.65 M/mm3 (4.6-6.2); White Blood Count 10.5 K/mm3 (4.4-11.0)
[2018-10-18 15:09] LABS: POSITIVE COUNT NO; POSITIVE DIFFERENTIAL NO; POSITIVE MORPHOLOGY NO
[2018-10-18 15:26] LABS: Anion Gap 7 (5-15); BUN 14 mg/dL (7-18); BUN/Creat Ratio 10.9 RATIO (10-20); Calcium,Total 8.4 mg/dL (8.5-10.1); Chloride 101 mmol/L (98-107); Creatinine, Serum 1.28 mg/dL (0.70-1.30); EST Glomerular Filtration Rate 60 mL/min (>60); Est Glom Filt Rate - Afr Amer 73 mL/min (>60); Estimated Creatinine Clearance 67.62 ml/min; Glucose 161 mg/dL (74-106); Potassium 3.6 mmol/L (3.5-5.1); Sodium Level 142 mmol/L (136-145)
--- NOTE | 2018-10-18 16:35 | PCM.HP.STD ---
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 The patient is a 62 year old M who presents the emergency room due to increased shortness of breath. Patient states he is chronically short of breath however this is severely increased over the past 3 days. He denies fever, chills. Denies productive cough. Reports coughing fits which he attributes to the dry air. Patient follows with Dr. Bundy, pulmonary medicine. He is on chronic supplemental oxygen which he states he uses 4-5 L continuously. Patient denies exposure to sick contacts. Denies chest pain. He states he is unable to complete daily activities such as walking to get the mail or routine errands without having to stop to catch his breath. He has a past medical history of chronic respiratory failure with hypoxia, bronchiectasis, obstructive sleep apnea, history of nicotine dependence, morbid obesity, hypertension, hyperlipidemia, CAD, BPH, depression. 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 (Chronic) EDUCATIONAL ADMINISTRATOR Mid RCA Left ventricular hypertrophy (Chronic) Premature ventricular beat (Chronic) Nicotine dependence (Chronic) Hyperlipidemia (Chronic) Hypertension (Chronic) Medical History: Medical History (Last Reviewed 10/01/18 @ 08:21 by Tanya Cohn) 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 [Ecotrin] 81 mg PO DAILY@0800 02/27/17 Ibuprofen 200 mg PO Q8H PRN PRN 02/27/17 nitroglycerin 0.4 mg sublingual 0.4 mg SUBLINGUAL Q5-15M PRN 01/19/18 tablet Tamsulosin HCl [Flomax] 0.4 mg PO DAILY 02/16/18 Acapella BID [id number] 05/29/18 Ascorbic Acid [Vitamin C] 1,000 mg PO DAILY 10/18/18 Atorvastatin Calcium [Lipitor] 20 mg PO DAILY 10/18/18 Budesonide/Formoterol 160/4.5 2 puff INHALATION BID 10/18/18 [Symbicort] Duloxetine Hcl [Cymbalta] 30 mg PO DAILY 10/18/18 Gabapentin [Neurontin] 100 mg PO DAILY PRN 10/18/18 Isosorbide Mononitrate [Imdur] 30 mg PO DAILY 10/18/18 Lisinopril-Hctz 20-12.5mg 2 tab PO DAILY 10/18/18 Multivitamins,Therapeutic 1 tablet PO DAILY 10/18/18 [Multivitamin] Surgical History: Surgical History (Last Reviewed 10/01/18 @ 08:21 by Tanya Cohn) History of left heart catheterization Onset Date: ~02/2010 Z98.890 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 Psychiatric History: No pertinent psych hx Lives: Alone Smoking Status: Former smoker Alcohol: None Drugs: None - *Family History Maternal History Items: - - Pancreatic cancer. Paternal History Items: COPD Review of Systems Constitutional: Denies: Chills, Fever, Weight Change HEENT: Denies: Head Aches, Sinus Congestion, Sinus Drainage Cardiovascular: Reports: Edema - Bilateral lower extremities, chronic.. Denies: Chest Pain, Palpitations Respiratory: Reports: Cough - Dry, Shortness of Breath. Denies: Sputum production Gastrointestinal: Denies: Abdominal Pain, Nausea, Vomiting Genitourinary: Denies: Dysuria Musculoskeletal: Denies: Joint Pain, Joint Tenderness Skin: Denies: Rash, Wounds Neurological: Denies: Numbness, Tingling, Focal weakness Psychiatric: Denies: Anxiety, Depression, Homicidal Ideations, Suicidal Ideations Hematologic/ Lymphatic: Denies: Easy Bruising, Easy Bleeding VTE Information - Inpt Only VTE Present on Admission: No VTE Mechan Device Prophylaxis: None VTE Pharm Prophylaxis ordered?: Yes - Physical Exam General: Alert, Oriented x3, Cooperative HEENT: Atraumatic, PERRLA, EOMI, Normocephalic Neck: Supple, No JVD, Negative Carotid Bruits Lungs: Clear to auscultation, Diminished Cardiovascular: Regular rate, Regular Rhythm, Normal S1, Normal S2, No murmurs Abdomen: Bowel Sounds Present, Soft, Non Tender, Obese Extremities: No clubbing, No cyanosis, No edema, Capillary Refill Less than 3 Seconds Skin: No rashes, No breakdown Musculoskeletal: No Tenderness to Palpation of Joints or Extremities Neurological: Cranial nerves II-XII grossly intact, Neuro grossly intact Psych/Mental Status: Normal Affect, Appropriate Vital Signs Temp Pulse Resp BP Pulse Ox 98.0 F 90 17 147/78 H 90 10/18/18 13:44 10/18/18 14:23 10/18/18 14:23 10/18/18 14:00 10/18/18 14:44 Oxygen Flow Rate (L/min) 6 Oxygen Delivery Method Nasal Cannula Weight: 352 lb Body Mass Index (BMI) 46.4 Laboratory Tests Past 24 Hrs 10/18/18 10/18/18 10/18/18 14:55 14:55 15:02 WBC 10.5 RBC 4.65 Hgb 14.4 Hct 44.9 MCV 96.6 H MCH 31.0 MCHC 32.1 RDW 14.4 RDW Differential 50.1 H Plt Count 236 MPV 10.9 Immature Gran % (Auto) 0.400 Neut % (Auto) 72.7 H Lymph % (Auto) 16.6 L [place] % (Auto) 9.4 Eos % (Auto) 0.7 Baso % (Auto) 0.2 Absolute Neuts (auto) 7.7 Absolute Lymphs (auto) 1.75 Total Counted Not Reportable Specimen Type ART Sample Site R Radial pH 7.38 Bicarbonate Actual 31.9 H POC Total CO2 34 Base Excess 7 H O2 Saturation 91 L ABG pCO2 53.5 H ABG pO2 62 L Stu Test POS O2 Delivery Device Nasal Can Liter Flow 6.0 Blood Gas Notified Whom ED MD Blood Gas Notified Time 1454 Sodium 142 Potassium 3.6 Chloride 101 Carbon Dioxide 34.0 H Anion Gap 7 BUN 14 Creatinine 1.28 Estim Creat Clear Calc 67.62 Est GFR (MDRD) Af Amer 73 Est GFR (MDRD) Non-Af 60 BUN/Creatinine Ratio 10.9 Glucose 161 H Calcium 8.4 L Troponin I 0.065 H Assessment/Plan 1. Chronic hypoxic respiratory failure due to chronic bronchiectasis with bronchospasm-pulmonary function test January 2018 showed mild restrictive ventilatory impairment. No reported history of COPD. Patient is documented to be noncompliant with inhaler regimen, BiPAP regimen etc. Follows with Dr. Bundy. Patient chronically wears 4-5 L nasal cannula continuously. Oxygen 91% on 6 L. Continue supplement oxygen to maintain O2 at or above 90%. Echocardiogram completed 08/13/2018 due to ongoing dyspnea on exertion. EF 55%, stage I diastolic dysfunction, pulmonary artery systolic pressure 32 mmHg. Acapella twice daily. Albuterol and DuoNeb aerosols. IV Solu-Medrol. BIPAP QHS. 2. Abnormal troponin, underlying CAD-cath in January 2018 showed known occluded right coronary artery with [id number] collaterals. Moderate disease in the circumflex artery. Follows with Dr. Pena. Continue aspirin, statin, isosorbide. Trend enzymes. Consider cardiology consult if troponin trends. 3. Hypertension-continue home HCTZ/lisinopril, isosorbide. 4. Hyperlipidemia-continue statin. 5. History of nicotine dependence-reports he is 5 months tobacco free. Encouraged continued cessation. 6. Morbid obesity-encouraged diet and lifestyle modifications. 7. BPH-continue home Flomax regimen. 8. Depression-continue home Cymbalta regimen. 9. Obstructive sleep apnea-continue BiPAP nightly. Noncompliance. DVT prophylaxis- Lovenox sc. This patient was seen by JAHAIRA Vee under the supervision of Dr. Limon. 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 (Chronic) I25.119 EDUCATIONAL ADMINISTRATOR Mid RCA Left ventricular hypertrophy (Chronic) I51.7 Premature ventricular beat (Chronic) I49.3 Nicotine dependence (Chronic) F17.200 Hyperlipidemia (Chronic) E78.5 Hypertension (Chronic) I10 BPH (benign prostatic hyperplasia) N40.0 COPD (chronic obstructive pulmonary disease) J44.9 GERD (gastroesophageal reflux disease) K21.9 Obstructive sleep apnea G47.33 right ankle surgery Allergies codeine Adverse Reaction (Verified 10/18/18 13:47) Other-dizzy Surgical History: Surgical History (Last Reviewed 10/01/18 @ 08:21 by Tanya Cohn) History of left heart catheterization Onset Date: ~02/2010 Z98.890 EDUCATIONAL ADMINISTRATOR Mid RCA History of right knee surgery Z98.890 History of uvulopalatopharyngoplasty Z98.890 - Physical Exam Vital Signs Temp Pulse Resp BP Pulse Ox 97.9 F 100 20 H 143/98 H 94 10/18/18 18:00 10/18/18 18:00 10/18/18 18:00 10/18/18 18:00 10/18/18 18:00 Oxygen Flow Rate (L/min) 6 Oxygen Delivery Method Nasal Cannula Weight: 349 lb 10.45 oz Body Mass Index (BMI) 46.1 Laboratory Tests Past 24 Hrs 10/18/18 10/18/18 10/18/18 14:55 14:55 15:02 WBC 10.5 RBC 4.65 Hgb 14.4 Hct 44.9 MCV 96.6 H MCH 31.0 MCHC 32.1 RDW 14.4 RDW Differential 50.1 H Plt Count 236 MPV 10.9 Immature Gran % (Auto) 0.400 Neut % (Auto) 72.7 H Lymph % (Auto) 16.6 L [place] % (Auto) 9.4 Eos % (Auto) 0.7 Baso % (Auto) 0.2 Absolute Neuts (auto) 7.7 Absolute Lymphs (auto) 1.75 Total Counted Not Reportable Specimen Type ART Sample Site R Radial pH 7.38 Bicarbonate Actual 31.9 H POC Total CO2 34 Base Excess 7 H O2 Saturation 91 L ABG pCO2 53.5 H ABG pO2 62 L Stu Test POS O2 Delivery Device Nasal Can Liter Flow 6.0 Blood Gas Notified Whom ED MD Blood Gas Notified Time 1454 Sodium 142 Potassium 3.6 Chloride 101 Carbon Dioxide 34.0 H Anion Gap 7 BUN 14 Creatinine 1.28 Estim Creat Clear Calc 67.62 Est GFR (MDRD) Af Amer 73 Est GFR (MDRD) Non-Af 60 BUN/Creatinine Ratio 10.9 Glucose 161 H Calcium 8.4 L Troponin I 0.065 H Assessment/Plan Patient seen by Tanya MOREL under my supervision Patient admitted with a complaint of shortness of breath which have been worsening. He has a history of chronic hypoxic respiratory failure due to chronic bronchiectasis and is on 5-6 L of oxygen at home. Shortness of breath has been worse today given that he has been compliant with his inhalers according to him. However, EMR records showed patient has not been very compliant with inhalers. He denied any associated cough, and denied chest pain, palpitations, abdominal pain, diarrhea or vomiting. He did admit to nose bleed which he says is frequent and he thought it was due to him picking his nose frequently. Review of systems was otherwise negative. o/e: Vital Signs Height 6 ft 1 in Weight: 349 lb 10.45 oz Weight in Pounds 349.7 lbs Pulse Ox 94 Temperature 97.9 F Pulse Rate 100 Respiratory Rate 20 Blood Pressure 143/98 Blood Pressure Position Supine General: Alert, Oriented x3, Cooperative HEENT: Atraumatic, PERRLA, EOMI, Normocephalic Neck: Supple, No JVD, Negative Carotid Bruits Lungs: Clear to auscultation, Diminished in lung bases, no wheezing auscultated. On 5L of oxygen at time of review Cardiovascular: Regular rate, Regular Rhythm, Normal S1, Normal S2, No murmurs Abdomen: Bowel Sounds Present, Soft, Non Tender, Obese Extremities: No clubbing, No cyanosis, No edema, Capillary Refill Less than 3 Seconds Skin: No rashes, No breakdown Musculoskeletal: No Tenderness to Palpation of Joints or Extremities Neurological: Cranial nerves II-XII grossly intact, Neuro grossly intact Psych/Mental Status: Normal Affect, Appropriate Plan is to manage for acute on chronic respiratory failure and to rule out cardiac pathology. To titrate oxygen to maintain saturation above 92%. Previous echo done in August 2018 showed EF of 55% with chronic diastolic dysfunction and pulmonary artery pressure of 32 mmHg. Will give IV Solu-Medrol and continue breathing treatments. BiPAP nightly. Initial troponin was 0.035. He had a cath in January 2018 which showed moderate disease in the circumflex artery and occluded right coronary artery with [id number] collaterals. We will cycle troponins and consider cardiology consult if troponins trend up. Rest of management as per Tanya Velázquez GERIATRIC NURSING ASSISTANT-C's note. Agree with above note, assessment and plan by Tanya Velázquez NPC, which I have reviewed and agree with.. Code Visit Inpatient E&M: 86702 Init Hosp L3
--- NOTE | 2018-10-18 16:43 | HP.PCM_ITS ---
<Tanya Velázquez - Last Filed: 10/18/18 17:09> Problem List (1) Morbid obesity with BMI of 45.0-49.9, adult Status: Chronic (2) Chronic respiratory failure with hypoxia Status: Chronic Comment: 2 L/min at rest and 4 L/min on exertion (3) KIRSTIE (obstructive sleep apnea) Status: Chronic Comment: BiPAP 16/10 cmH2O with a 6 L/min supplemental oxygen bleed (4) Bronchiectasis Status: Chronic (5) Hypersomnia Status: Chronic (6) Lung nodule Status: Chronic (7) Atherosclerotic heart disease [place] coronary artery w/angina pectoris Status: Chronic Comment: HAND BUTTON SPLITTER Mid RCA (8) Left ventricular hypertrophy Status: Chronic (9) Premature ventricular beat Status: Chronic (10) Nicotine dependence Status: Chronic (11) Hyperlipidemia Status: Chronic (12) Hypertension Status: Chronic History of Present Illness Date of Admission: 10/18/18 Chief Complaint: Shortness of breath. The patient is a 62 year old M who presents the emergency room due to increased shortness of breath. Patient states he is chronically short of breath however this is severely increased over the past 3 days. He denies fever, chills. Denies productive cough. Reports coughing fits which he attributes to the dry air. Patient follows with Dr. Bundy, pulmonary medicine. He is on chronic supplemental oxygen which he states he uses 4-5 L continuously. Patient denies exposure to sick contacts. Denies chest pain. He states he is unable to complete daily activities such as walking to get the mail or routine errands without having to stop to catch his breath. He has a past medical history of chronic respiratory failure with hypoxia, bronchiectasis, obstructive sleep apnea, history of nicotine dependence, morbid obesity, hypertension, hyperlipidemia, CAD, BPH, depression. Past Medical History Past Medical History (Chronic Problems): Chronic Problems (Last Reviewed 10/01/18 @ 08:21 by Tanya Cohn) Morbid obesity with BMI of 45.0-49.9, adult (Chronic) Chronic respiratory failure with hypoxia (Chronic) 2 L/min at rest and 4 L/min on exertion KIRSTIE (obstructive sleep apnea) (Chronic) BiPAP 16/10 cmH2O with a 6 L/min supplemental oxygen bleed Bronchiectasis (Chronic) Hypersomnia (Chronic) Lung nodule (Chronic) Atherosclerotic heart disease sit[place] coronary artery w/angina pectoris (Chronic) HAND BUTTON SPLITTER Mid RCA Left ventricular hypertrophy (Chronic) Premature ventricular beat (Chronic) Nicotine dependence (Chronic) Hyperlipidemia (Chronic) Hypertension (Chronic) Medical History: Medical History (Last Reviewed 10/01/18 @ 08:21 by Tanay Cohn) Atherosclerotic heart disease [place] coronary artery w/angina pectoris (Chronic) I25.119 HAND BUTTON SPLITTER Mid RCA Left ventricular hypertrophy (Chronic) I51.7 Premature ventricular beat (Chronic) I49.3 Nicotine dependence (Chronic) F17.200 Hyperlipidemia (Chronic) E78.5 Hypertension (Chronic) I10 BPH (benign prostatic hyperplasia) N40.0 COPD (chronic obstructive pulmonary disease) J44.9 GERD (gastroesophageal reflux disease) K21.9 Obstructive sleep apnea G47.33 right ankle surgery Allergies codeine Adverse Reaction (Verified 10/18/18 13:47) Other-dizzy Home Medications: Ambulatory Orders Medication Instructions Recorded Aspirin E.C. [Ecotrin] 81 mg PO DAILY@0800 02/27/17 Ibuprofen 200 mg PO Q8H PRN PRN 02/27/17 nitroglycerin 0.4 mg sublingual 0.4 mg SUBLINGUAL Q5-15M PRN 01/19/18 tablet Tamsulosin HCl [Flomax] 0.4 mg PO DAILY 02/16/18 Acapella BID [id number] 05/29/18 Ascorbic Acid [Vitamin C] 1,000 mg PO DAILY 10/18/18 Atorvastatin Calcium [Lipitor] 20 mg PO DAILY 10/18/18 Budesonide/Formoterol 160/4.5 2 puff INHALATION BID 10/18/18 [Symbicort] Duloxetine Hcl [Cymbalta] 30 mg PO DAILY 10/18/18 Gabapentin [Neurontin] 100 mg PO DAILY PRN 10/18/18 Isosorbide Mononitrate [Imdur] 30 mg PO DAILY 10/18/18 Lisinopril-Hctz 20-12.5mg 2 tab PO DAILY 10/18/18 Multivitamins,Therapeutic 1 tablet PO DAILY 10/18/18 [Multivitamin] Surgical History: Surgical History (Last Reviewed 10/01/18 @ 08:21 by Tanya Cohn) History of left heart catheterization Onset Date: ~02/2010 Z98.890 HAND BUTTON SPLITTER Mid RCA History of right knee surgery Z98.890 History of uvulopalatopharyngoplasty Z98.890 Surgical History: - - Right knee surgery, history of uvulopalatopharyngoplasty, left heart cath. Psychiatric History: No pertinent psych hx Lives: Alone Smoking Status: Former smoker Alcohol: None Drugs: None - *Family History Maternal History Items: - - Pancreatic cancer. Paternal History Items: COPD Review of Systems Constitutional: Denies: Chills, Fever, Weight Change HEENT: Denies: Head Aches, Sinus Congestion, Sinus Drainage Cardiovascular: Reports: Edema - Bilateral lower extremities, chronic.. Denies: Chest Pain, Palpitations Respiratory: Reports: Cough - Dry, Shortness of Breath. Denies: Sputum production Gastrointestinal: Denies: Abdominal Pain, Nausea, Vomiting Genitourinary: Denies: Dysuria Musculoskeletal: Denies: Joint Pain, Joint Tenderness Skin: Denies: Rash, Wounds Neurological: Denies: Numbness, Tingling, Focal weakness Psychiatric: Denies: Anxiety, Depression, Homicidal Ideations, Suicidal Ideations Hematologic/ Lymphatic: Denies: Easy Bruising, Easy Bleeding VTE Information - Inpt Only VTE Present on Admission: No VTE Mechan Device Prophylaxis: None VTE Pharm Prophylaxis ordered?: Yes - Physical Exam General: Alert, Oriented x3, Cooperative HEENT: Atraumatic, PERRLA, EOMI, Normocephalic Neck: Supple, No JVD, Negative Carotid Bruits Lungs: Clear to auscultation, Diminished Cardiovascular: Regular rate, Regular Rhythm, Normal S1, Normal S2, No murmurs Abdomen: Bowel Sounds Present, Soft, Non Tender, Obese Extremities: No clubbing, No cyanosis, No edema, Capillary Refill Less than 3 Seconds Skin: No rashes, No breakdown Musculoskeletal: No Tenderness to Palpation of Joints or Extremities Neurological: Cranial nerves II-XII grossly intact, Neuro grossly intact Psych/Mental Status: Normal Affect, Appropriate Vital Signs Temp Pulse Resp BP Pulse Ox 98.0 F 90 17 147/78 H 90 10/18/18 13:44 10/18/18 14:23 10/18/18 14:23 10/18/18 14:00 10/18/18 14:44 Oxygen Flow Rate (L/min) 6 Oxygen Delivery Method Nasal Cannula Weight: 352 lb Body Mass Index (BMI) 46.4 Laboratory Tests Past 24 Hrs 10/18/18 10/18/18 10/18/18 14:55 14:55 15:02 WBC 10.5 RBC 4.65 Hgb 14.4 Hct 44.9 MCV 96.6 H MCH 31.0 MCHC 32.1 RDW 14.4 RDW Differential 50.1 H Plt Count 236 MPV 10.9 Immature Gran % (Auto) 0.400 Neut % (Auto) 72.7 H Lymph % (Auto) 16.6 L [place] % (Auto) 9.4 Eos % (Auto) 0.7 Baso % (Auto) 0.2 Absolute Neuts (auto) 7.7 Absolute Lymphs (auto) 1.75 Total Counted Not Reportable Specimen Type ART Sample Site R Radial pH 7.38 Bicarbonate Actual 31.9 H POC Total CO2 34 Base Excess 7 H O2 Saturation 91 L ABG pCO2 53.5 H ABG pO2 62 L Stu Test POS O2 Delivery Device Nasal Can Liter Flow 6.0 Blood Gas Notified Whom ED MD Blood Gas Notified Time 1454 Sodium 142 Potassium 3.6 Chloride 101 Carbon Dioxide 34.0 H Anion Gap 7 BUN 14 Creatinine 1.28 Estim Creat Clear Calc 67.62 Est GFR (MDRD) Af Amer 73 Est GFR (MDRD) Non-Af 60 BUN/Creatinine Ratio 10.9 Glucose 161 H Calcium 8.4 L Troponin I 0.065 H Assessment/Plan 1. Chronic hypoxic respiratory failure due to chronic bronchiectasis with bronchospasm-pulmonary function test January 2018 showed mild restrictive ventilatory impairment. No reported history of COPD. Patient is documented to be noncompliant with inhaler regimen, BiPAP regimen etc. Follows with Dr. Bundy. Patient chronically wears 4-5 L nasal cannula continuously. Oxygen 91% on 6 L. Continue supplement oxygen to maintain O2 at or above 90%. Echocardiogram completed 08/13/2018 due to ongoing dyspnea on exertion. EF 55%, stage I diastolic dysfunction, pulmonary artery systolic pressure 32 mmHg. Acapella twice daily. Albuterol and DuoNeb aerosols. IV Solu-Medrol. BIPAP QHS. 2. Abnormal troponin, underlying CAD-cath in January 2018 showed known occluded right coronary artery with [id number] collaterals. Moderate disease in the circumflex artery. Follows with Dr. Pena. Continue aspirin, statin, iso sorbide. Trend enzymes. Consider cardiology consult if troponin trends. 3. Hypertension-continue home HCTZ/lisinopril, isosorbide. 4. Hyperlipidemia-continue statin. 5. History of nicotine dependence-reports he is 5 months tobacco free. Encouraged continued cessation. 6. Morbid obesity-encouraged diet and lifestyle modifications. 7. BPH-continue home Flomax regimen. 8. Depression-continue home Cymbalta regimen. 9. Obstructive sleep apnea-continue BiPAP nightly. Noncompliance. DVT prophylaxis- Lovenox sc. This patient was seen by JAHAIRA Vee under the supervision of Dr. Limon. <Hina Limon - Last Filed: 10/18/18 19:54> History of Present Illness The patient is a 62 year old M [] Past Medical History Medical History: Medical History (Last Reviewed 10/01/18 @ 08:21 by Tanya Cohn) Atherosclerotic heart disease [place] coronary artery w/angina pectoris (Chronic) I25.119 HAND BUTTON SPLITTER Mid RCA Left ventricular hypertrophy (Chronic) I51.7 Premature ventricular beat (Chronic) I49.3 Nicotine dependence (Chronic) F17.200 Hyperlipidemia (Chronic) E78.5 Hypertension (Chronic) I10 BPH (benign prostatic hyperplasia) N40.0 COPD (chronic obstructive pulmonary disease) J44.9 GERD (gastroesophageal reflux disease) K21.9 Obstructive sleep apnea G47.33 right ankle surgery Allergies codeine Adverse Reaction (Verified 10/18/18 13:47) Other-dizzy Surgical History: Surgical History (Last Reviewed 10/01/18 @ 08:21 by Tanya Cohn) History of left heart catheterization Onset Date: ~02/2010 Z98.890 HAND BUTTON SPLITTER Mid RCA History of right knee surgery Z98.890 History of uvulopalatopharyngoplasty Z98.890 - Physical Exam Vital Signs Temp Pulse Resp BP Pulse Ox 97.9 F 100 20 H 143/98 H 94 10/18/18 18:00 10/18/18 18:00 10/18/18 18:00 10/18/18 18:00 10/18/18 18:00 Oxygen Flow Rate (L/min) 6 Oxygen Delivery Method Nasal Cannula Weight: 349 lb 10.45 oz Body Mass Index (BMI) 46.1 Laboratory Tests Past 24 Hrs 10/18/18 10/18/18 10/18/18 14:55 14:55 15:02 WBC 10.5 RBC 4.65 Hgb 14.4 Hct 44.9 MCV 96.6 H MCH 31.0 MCHC 32.1 RDW 14.4 RDW Differential 50.1 H Plt Count 236 MPV 10.9 Immature Gran % (Auto) 0.400 Neut % (Auto) 72.7 H Lymph % (Auto) 16.6 L [place] % (Auto) 9.4 Eos % (Auto) 0.7 Baso % (Auto) 0.2 Absolute Neuts (auto) 7.7 Absolute Lymphs (auto) 1.75 Total Counted Not Reportable Specimen Type ART Sample Site R Radial pH 7.38 Bicarbonate Actual 31.9 H POC Total CO2 34 Base Excess 7 H O2 Saturation 91 L ABG pCO2 53.5 H ABG pO2 62 L Stu Test POS O2 Delivery Device Nasal Can Liter Flow 6.0 Blood Gas Notified Whom ED MD Blood Gas Notified Time 1454 Sodium 142 Potassium 3.6 Chloride 101 Carbon Dioxide 34.0 H Anion Gap 7 BUN 14 Creatinine 1.28 Estim Creat Clear Calc 67.62 Est GFR (MDRD) Af Amer 73 Est GFR (MDRD) Non-Af 60 BUN/Creatinine Ratio 10.9 Glucose 161 H Calcium 8.4 L Troponin I 0.065 H Assessment/Plan Patient seen by Tanya MOREL under my supervision Patient admitted with a complaint of shortness of breath which have been worsening. He has a history of chronic hypoxic respiratory failure due to chronic bronchiectasis and is on 5-6 L of oxygen at home. Shortness of breath has been worse today given that he has been compliant with his inhalers according to him. However, EMR records showed patient has not been very compliant with inhalers. He denied any associated cough, and denied chest pain, palpitations, abdominal pain, diarrhea or vomiting. He did admit to nose bleed which he says is frequent and he thought it was due to him picking his nose frequently. Review of systems was otherwise negative. o/e: Vital Signs Height 6 ft 1 in Weight: 349 lb 10.45 oz Weight in Pounds 349.7 lbs Pulse Ox 94 Temperature 97.9 F Pulse Rate 100 Respiratory Rate 20 Blood Pressure 143/98 Blood Pressure Position Supine General: Alert, Oriented x3, Cooperative HEENT: Atraumatic, PERRLA, EOMI, Normocephalic Neck: Supple, No JVD, Negative Carotid Bruits Lungs: Clear to auscultation, Diminished in lung bases, no wheezing auscultated. On 5L of oxygen at time of review Cardiovascular: Regular rate, Regular Rhythm, Normal S1, Normal S2, No murmurs Abdomen: Bowel Sounds Present, Soft, Non Tender, Obese Extremities: No clubbing, No cyanosis, No edema, Capillary Refill Less than 3 Seconds Skin: No rashes, No breakdown Musculoskeletal: No Tenderness to Palpation of Joints or Extremities Neurological: Cranial nerves II-XII grossly intact, Neuro grossly intact Psych/Mental Status: Normal Affect, Appropriate Plan is to manage for acute on chronic respiratory failure and to rule out cardiac pathology. To titrate oxygen to maintain saturation above 92%. Previous echo done in August 2018 showed EF of 55% with chronic diastolic dysfunction and pulmonary artery pressure of 32 mmHg. Will give IV Solu-Medrol and continue breathing treatments. BiPAP nightly. Initial troponin was 0.035. He had a cath in January 2018 which showed moderate disease in the circumflex artery and occluded right coronary artery with [id number] collaterals. We will cycle troponins and consider cardiology consult if troponins trend up. Rest of management as per Tanya Velázquez [employer]IOR WALL ASSEMBLER-C's note. Agree with above note, assessment and plan by Tanya Velázquez NPC, which I have reviewed and agree with.. Code Visit Inpatient E&M: 45772 Init Hosp L3
[2018-10-18] MEDS: 0.9% NaCl Peripheral Flush Adult/Peds IV ×2 (22:42→22:43)
[2018-10-18] MEDS: Acetaminophen 325 MG Tablet 650 MG PO (23:38)
[2018-10-18] MEDS: Lisinopril 20 MG Tablet PO (23:38)
[2018-10-19] VITALS (31 sets, daily range): BP systolic 151–216; BP diastolic 69–102; PULSE 87–109; RESP 10–24; TEMP 36.5–37.3; O2SAT 89–96
[2018-10-19] MEDS: 0.9% NaCl Peripheral Flush Adult/Peds IV ×11 (01:55→22:46)
[2018-10-19] MEDS: hydrALAZINE 20 MG/ML Vial IV ×4 (01:55→22:46)
[2018-10-19] MEDS: Lisinopril 20 MG Tablet PO (06:17)
[2018-10-19] MEDS: Acetaminophen 325 MG Tablet 650 MG PO (06:17)
[2018-10-19] MEDS: Ipratropium/Albuterol Sulfate 3 ML AMPUL.NEB INHALATION ×5 (06:44→22:46)
[2018-10-19] MEDS: Tamsulosin HCl 0.4 MG Capsule PO (08:38)
[2018-10-19] MEDS: Multivitamins,Therapeutic Tablet 1 TABLET PO (08:38)
[2018-10-19] MEDS: Aspirin E.C. 81 MG Tablet PO (08:38)
[2018-10-19] MEDS: Sodium Chloride 0.65% 1 SPRAY SPRAY.BTL NASAL (08:41)
[2018-10-19] MEDS: Isosorbide Mononitrate 30 MG Tablet PO (09:21)
[2018-10-19] MEDS: Lisinopril 40 MG Tablet PO (09:21)
[2018-10-19] MEDS: DULoxetine Hcl 30 MG Capsule PO (09:21)
[2018-10-19] MEDS: Enoxaparin 40 MG/0.4 ML Syringe SC (09:21)
[2018-10-19] MEDS: hydroCHLOROthiazide 25 MG Tablet PO (09:21)
--- NOTE | 2018-10-19 11:12 | CASEMGMT ---
JOHNSON DAWN assessment: Face to Face with patient for initial transition planning/care coordination assessment. JOHNSON DAWN introduced self and role at [facility], pt voices understanding and consents to assessment at this time. Pt is sitting up in bed in no distress at this time. Pt is A/Ox4 at this time and answers all questions appropriately at this time. Care providers, pharmacy, and demographics verified/updated at this time. PCP: Natalie Ochoa Specialists: Gregor-pulcara; Jean-cardio Preferred Pharmacy: [facility] Insurance: JOSE Schmitt Prescription Benefit: JOSE Schmitt Living Will/HPOA: Pt states has a LW and HPOA and daughter, Dunia Rocha, is HPOA. Pt's LW is on file at [facility] but HPOA is not. LNOK: Dunia Rocha, daughter Living Arrangements: Pt lives alone in 2 story home and states no concerns at home at this time. Transportation: Pt states drives self and states no transportation concerns at this time. DME/HHC: Pt has cpap and home oxygen at 4-6 liters thru [employer]. Pt states no need for any further DME at this time. Pt states no hx of HHC or SNF in the past. Pt states no concerns with going home at time of discharge. Pt states is disabled. Pt states quit smoking about 5 months ago. Pt states does not drink ETOH. Pt states no further concerns/needs at this time. Advised pt to ask for CM if any further questions/concerns/needs arise, voices understanding. CM to follow PT/OT and for any further discharge planning/needs. Plan: [place] JOHNSON DAWN
--- NOTE | 2018-10-19 13:40 | PCM.PROGNOTE ---
<Tanya Velázquez - Last Filed: 10/19/18 13:54> Subjective: Patient seen and examined. States he wore BiPAP overnight, reports mask was uncomfortable. States breathing is much improved. Denies fever, chills. No other current complaints. - Physical Exam General: Alert, Oriented x3, Cooperative HEENT: Atraumatic, PERRLA, EOMI, Normocephalic Neck: Supple, No JVD, Negative Carotid Bruits Lungs: Clear to auscultation, Diminished Cardiovascular: Regular Rhythm, Normal S1, Normal S2, No murmurs, Tachycardic Abdomen: Bowel Sounds Present, Soft, Non Tender, Non-Distended, Obese Extremities: No clubbing, No cyanosis, No edema, Capillary Refill Less than 3 Seconds Skin: No rashes, No breakdown Musculoskeletal: No Tenderness to Palpation of Joints or Extremities Neurological: Cranial nerves II-XII grossly intact, Neuro grossly intact Psych/Mental Status: Normal Affect, Appropriate Vital Signs Temp Pulse Resp BP Pulse Ox 99.0 F 106 H 18 151/69 H 92 10/19/18 11:30 10/19/18 11:30 10/19/18 11:30 10/19/18 11:30 10/19/18 11:30 Oxygen Flow Rate (L/min) 5 Oxygen Delivery Method Nasal Cannula Weight: 349 lb 10.45 oz Body Mass Index (BMI) 46.1 Intake and Output for Last 24 Hours 10/17/18 10/18/18 10/19/18 23:59 23:59 23:59 Intake Total 220 / 220 445 / 445 Output Total 250 / 250 Balance 220 / 220 195 / 195 Microbiology Past 72 Hours 10/18/18 19:20 Respiratory Panel (PCR) - Final Mucosa - Nose RSV B Laboratory Tests Past 24 Hrs 10/18/18 10/18/18 10/18/18 14:55 14:55 15:02 WBC 10.5 RBC 4.65 Hgb 14.4 Hct 44.9 MCV 96.6 H MCH 31.0 MCHC 32.1 RDW 14.4 RDW Differential 50.1 H Plt Count 236 MPV 10.9 Immature Gran % (Auto) 0.400 Neut % (Auto) 72.7 H Lymph % (Auto) 16.6 L [place] % (Auto) 9.4 Eos % (Auto) 0.7 Baso % (Auto) 0.2 Absolute Neuts (auto) 7.7 Absolute Lymphs (auto) 1.75 Total Counted Not Reportable Specimen Type ART Sample Site R Radial pH 7.38 Bicarbonate Actual 31.9 H POC Total CO2 34 Base Excess 7 H O2 Saturation 91 L ABG pCO2 53.5 H ABG pO2 62 L Stu Test POS O2 Delivery Device Nasal Can Liter Flow 6.0 Blood Gas Notified Whom ED MD Blood Gas Notified Time 1454 Sodium 142 Potassium 3.6 Chloride 101 Carbon Dioxide 34.0 H Anion Gap 7 BUN 14 Creatinine 1.28 Estim Creat Clear Calc 67.62 Est GFR (MDRD) Af Amer 73 Est GFR (MDRD) Non-Af 60 BUN/Creatinine Ratio 10.9 Glucose 161 H Calcium 8.4 L Troponin I 0.065 H 10/18/18 10/18/18 18:41 21:15 WBC RBC Hgb Hct MCV MCH MCHC RDW RDW Differential Plt Count MPV Immature Gran % (Auto) Neut % (Auto) Lymph % (Auto) [place] % (Auto) Eos % (Auto) Baso % (Auto) Absolute Neuts (auto) Absolute Lymphs (auto) Total Counted Specimen Type Sample Site pH Bicarbonate Actual POC Total CO2 Base Excess O2 Saturation ABG pCO2 ABG pO2 Stu Test O2 Delivery Device Liter Flow Blood Gas Notified Whom Blood Gas Notified Time Sodium Potassium Chloride Carbon Dioxide Anion Gap BUN Creatinine Estim Creat Clear Calc Est GFR (MDRD) Af Amer Est GFR (MDRD) Non-Af BUN/Creatinine Ratio Glucose Calcium Troponin I 0.051 H 0.051 H Medical Necessity - Tobacco Use Smoking Status: Former smoker Tobacco Use: Cigarettes Assessment/Plan 1. Chronic hypoxic respiratory failure due to chronic bronchiectasis with bronchospasm due to acute RSV B-pulmonary function test January 2018 showed mild restrictive ventilatory impairment. No reported history of COPD. Patient is documented to be noncompliant with inhaler regimen, BiPAP regimen etc. Follows with Dr. Bundy. Patient chronically wears 4-5 L nasal cannula continuously. Oxygen 92% on 5 L. Continue supplement oxygen to maintain O2 at or above 90%. Echocardiogram completed 08/13/2018 due to ongoing dyspnea on exertion. EF 55%, stage I diastolic dysfunction, pulmonary artery systolic pressure 32 mmHg. Acapella twice daily. Albuterol and DuoNeb aerosols. IV Solu-Medrol. BIPAP QHS. 2. Abnormal troponin, underlying CAD-cath in January 2018 showed known occluded right coronary artery with [id number]-[id number]-[id number] collaterals. Moderate disease in the circumflex artery. Follows with Dr. Pena. Continue aspirin, statin, isosorbide. Patient denies chest pain. Troponins did not trend upward. EKG without ST-T changes. Recommend continued outpatient follow-up with cardiology. 3. Hypertension-continue home HCTZ/lisinopril, isosorbide. 4. Hyperlipidemia-continue statin. 5. History of nicotine dependence-reports he is 5 months tobacco free. Encouraged continued cessation. 6. Morbid obesity-encouraged diet and lifestyle modifications. 7. BPH-continue home Flomax regimen. 8. Depression-continue home Cymbalta regimen. 9. Obstructive sleep apnea-continue BiPAP nightly. History of noncompliance. DVT prophylaxis- Lovenox sc. This patient was seen by JAHAIRA Vee under the supervision of Dr. Ryan. <Zheng Ryan - Last Filed: 10/19/18 15:26> Subjective: Seen and examined. Patient is still short of breath but feels better than yesterday. Patient wore BiPAP intermittently last night. No fever or chills. History of bronchiectasis. PFT on January 12 shows mild restrictive ventilatory defect - Physical Exam Vital Signs Temp Pulse Resp BP Pulse Ox 98.6 F 106 H 18 174/74 H 93 10/19/18 13:59 10/19/18 14:11 10/19/18 13:59 10/19/18 14:11 10/19/18 13:59 Oxygen Flow Rate (L/min) 5 Oxygen Delivery Method Nasal Cannula Weight: 349 lb 10.45 oz Body Mass Index (BMI) 46.1 Intake and Output for Last 24 Hours 10/17/18 10/18/18 10/19/18 23:59 23:59 23:59 Intake Total 220 / 220 445 / 445 Output Total 250 / 250 Balance 220 / 220 195 / 195 Microbiology Past 72 Hours 10/18/18 19:20 Respiratory Panel (PCR) - Final Mucosa - Nose RSV B Laboratory Tests Past 24 Hrs 10/18/18 10/18/18 10/18/18 14:55 18:41 21:15 Sodium 142 Potassium 3.6 Chloride 101 Carbon Dioxide 34.0 H Anion Gap 7 BUN 14 Creatinine 1.28 Estim Creat Clear Calc 67.62 Est GFR (MDRD) Af Amer 73 Est GFR (MDRD) Non-Af 60 BUN/Creatinine Ratio 10.9 Glucose 161 H Calcium 8.4 L Troponin I 0.065 H 0.051 H 0.051 H Assessment/Plan This patient was seen in conjunction with SUPPOSITORY MOLDING MACHINE OPERATORTanya. I have independently interviewed and examined the patient and reviewed pertinent history, examination findings, laboratory and plan of management. I have reviewed the note and agree with the documented findings with the few additional points. In brief, patient is admitted for acute on chronic shortness of breath consistent with bronchospasm due to bronchiectasis exacerbation probably from viral bronchitis, RSV-B. Chest x-ray does not show acute pathology. EKG with no significant ST-T changes. Patient also has history of coronary artery disease as mentioned above. Serial troponin showed downward trends. I have discussed my assessment with Tanya BALDERAS and orders have been reviewed. Clinical Impression(s) from Imaging Studies Chest X-Ray 10/18/18 14:15 IMPRESSION: No acute thoracic pathology. Active Medications Acetaminophen (Tylenol) 650 mg PO Q6H PRN PRN PRN Reason: Mild Pain (scale 0-3)/T>100.7 Last Admin: 10/19/18 06:17 Dose: 650 mg Albuterol Sulfate (Ventolin Aerosols) 2.5 mg INHALATION Q2H PRN PRN PRN Reason: SHORTNESS OF BREATH Albuterol/Ipratropium (Duoneb) 3 ml INHALATION Q4H.RT [facility] Last Admin: 10/19/18 15:06 Dose: 3 ml Aspirin (Ecotrin) 81 mg PO DAILY@0800 [facility] Last Admin: 10/19/18 08:38 Dose: 81 mg Atorvastatin Calcium (Lipitor) 20 mg PO QHS [facility] Duloxetine HCl (Cymbalta) 30 mg PO DAILY [facility] Last Admin: 10/19/18 09:21 Dose: 30 mg Enoxaparin Sodium (Lovenox) 40 mg SC DAILY [facility] Last Admin: 10/19/18 09:21 Dose: 40 mg Gabapentin (Neurontin) 100 mg PO DAILY PRN PRN Reason: nerve pain Hydralazine HCl (Apresoline Iv) 20 mg IV Q4H PRN PRN PRN Reason: SBP >160 or DBP >100 Last Admin: 10/19/18 14:11 Dose: 20 mg Hydrochlorothiazide (Hctz) 25 mg PO DAILY [facility] Last Admin: 10/19/18 09:21 Dose: 25 mg Isosorbide Mononitrate (Imdur) 30 mg PO DAILY [facility] Last Admin: 10/19/18 09:21 Dose: 30 mg Lisinopril (Zestril) 40 mg PO DAILY [facility] Last Admin: 10/19/18 09:21 Dose: 40 mg Methylprednisolone (Solu-Medrol) 40 mg IV Q8 [facility] Last Admin: 10/19/18 14:07 Dose: 40 mg Multivitamins (Multivitamin) 1 tablet PO DAILYCOX BRANSON Last Admin: 10/19/18 08:38 Dose: 1 tablet Sodium Chloride () 5 - 15 ml IV UD PRN PRN Reason: SALINE FLUSH Last Admin: 10/19/18 06:27 Dose: 10 ml Sodium Chloride ([place] Nasal [place]) 1 - 2 spray NASAL Q4H PRN PRN Reason: Stuffed Nose Last Admin: 10/19/18 08:41 Dose: 2 sprays Tamsulosin HCl (Flomax) 0.4 mg PO DAILY@0830 [facility] Last Admin: 10/19/18 08:38 Dose: 0.4 mg Code Visit Inpatient E&M: [id number] [facility] Hosp L3
--- NOTE | 2018-10-19 13:45 | PN_ITS ---
<Tanya Velázquez - Last Filed: 10/19/18 13:54> Subjective: Patient seen and examined. States he wore BiPAP overnight, reports mask was uncomfortable. States breathing is much improved. Denies fever, chills. No other current complaints. - Physical Exam General: Alert, Oriented x3, Cooperative HEENT: Atraumatic, PERRLA, EOMI, Normocephalic Neck: Supple, No JVD, Negative Carotid Bruits Lungs: Clear to auscultation, Diminished Cardiovascular: Regular Rhythm, Normal S1, Normal S2, No murmurs, Tachycardic Abdomen: Bowel Sounds Present, Soft, Non Tender, Non-Distended, Obese Extremities: No clubbing, No cyanosis, No edema, Capillary Refill Less than 3 Seconds Skin: No rashes, No breakdown Musculoskeletal: No Tenderness to Palpation of Joints or Extremities Neurological: Cranial nerves II-XII grossly intact, Neuro grossly intact Psych/Mental Status: Normal Affect, Appropriate Vital Signs Temp Pulse Resp BP Pulse Ox 99.0 F 106 H 18 151/69 H 92 10/19/18 11:30 10/19/18 11:30 10/19/18 11:30 10/19/18 11:30 10/19/18 11:30 Oxygen Flow Rate (L/min) 5 Oxygen Delivery Method Nasal Cannula Weight: 349 lb 10.45 oz Body Mass Index (BMI) 46.1 Intake and Output for Last 24 Hours 10/17/18 10/18/18 10/19/18 23:59 23:59 23:59 Intake Total 220 / 220 445 / 445 Output Total 250 / 250 Balance 220 / 220 195 / 195 Microbiology Past 72 Hours 10/18/18 19:20 Respiratory Panel (PCR) - Final Mucosa - Nose RSV B Laboratory Tests Past 24 Hrs 10/18/18 10/18/18 10/18/18 14:55 14:55 15:02 WBC 10.5 RBC 4.65 Hgb 14.4 Hct 44.9 MCV 96.6 H MCH 31.0 MCHC 32.1 RDW 14.4 RDW Differential 50.1 H Plt Count 236 MPV 10.9 Immature Gran % (Auto) 0.400 Neut % (Auto) 72.7 H Lymph % (Auto) 16.6 L Stanton % (Auto) 9.4 Eos % (Auto) 0.7 Baso % (Auto) 0.2 Absolute Neuts (auto) 7.7 Absolute Lymphs (auto) 1.75 Total Counted Not Reportable Specimen Type ART Sample Site R Radial pH 7.38 Bicarbonate Actual 31.9 H POC Total CO2 34 Base Excess 7 H O2 Saturation 91 L ABG pCO2 53.5 H ABG pO2 62 L Stu Test POS O2 Delivery Device Nasal Can Liter Flow 6.0 Blood Gas Notified Whom ED MD Blood Gas Notified Time 1454 Sodium 142 Potassium 3.6 Chloride 101 Carbon Dioxide 34.0 H Anion Gap 7 BUN 14 Creatinine 1.28 Estim Creat Clear Calc 67.62 Est GFR (MDRD) Af Amer 73 Est GFR (MDRD) Non-Af 60 BUN/Creatinine Ratio 10.9 Glucose 161 H Calcium 8.4 L Troponin I 0.065 H 10/18/18 10/18/18 18:41 21:15 WBC RBC Hgb Hct MCV MCH MCHC RDW RDW Differential Plt Count MPV Immature Gran % (Auto) Neut % (Auto) Lymph % (Auto) Stanton % (Auto) Eos % (Auto) Baso % (Auto) Absolute Neuts (auto) Absolute Lymphs (auto) Total Counted Specimen Type Sample Site pH Bicarbonate Actual POC Total CO2 Base Excess O2 Saturation ABG pCO2 ABG pO2 Stu Test O2 Delivery Device Liter Flow Blood Gas Notified Whom Blood Gas Notified Time Sodium Potassium Chloride Carbon Dioxide Anion Gap BUN Creatinine Estim Creat Clear Calc Est GFR (MDRD) Af Amer Est GFR (MDRD) Non-Af BUN/Creatinine Ratio Glucose Calcium Troponin I 0.051 H 0.051 H Medical Necessity - Tobacco Use Smoking Status: Former smoker Tobacco Use: Cigarettes Assessment/Plan 1. Chronic hypoxic respiratory failure due to chronic bronchiectasis with bronchospasm due to acute RSV B-pulmonary function test January 2018 showed mild restrictive ventilatory impairment. No reported history of COPD. Patient is documented to be noncompliant with inhaler regimen, BiPAP regimen etc. Follows with Dr. Bundy. Patient chronically wears 4-5 L nasal cannula continuously. Oxygen 92% on 5 L. Continue supplement oxygen to maintain O2 at or above 90%. Echocardiogram completed 08/13/2018 due to ongoing dyspnea on exertion. EF 55%, stage I diastolic dysfunction, pulmonary artery systolic pressure 32 mmHg. Acapella twice daily. Albuterol and DuoNeb aerosols. IV Solu-Medrol. BIPAP QHS. 2. Abnormal troponin, underlying CAD-cath in January 2018 showed known occluded right coronary artery with [id number] collaterals. Moderate disease in the circumflex artery. Follows with Dr. Pena. Continue aspirin, statin, isosorbide. Patient denies chest pain. Troponins did not trend upward. EKG without ST-T changes. Recommend continued outpatient follow-up with cardiology. 3. Hypertension-continue home HCTZ/lisinopril, isosorbide. 4. Hyperlipidemia-continue statin. 5. History of nicotine dependence-reports he is 5 months tobacco free. Enco uraged continued cessation. 6. Morbid obesity-encouraged diet and lifestyle modifications. 7. BPH-continue home Flomax regimen. 8. Depression-continue home Cymbalta regimen. 9. Obstructive sleep apnea-continue BiPAP nightly. History of noncompliance. DVT prophylaxis- Lovenox sc. This patient was seen by JAHAIRA Vee under the supervision of Dr. Ryan. <Zheng Ryan - Last Filed: 10/19/18 15:26> Subjective: Seen and examined. Patient is still short of breath but feels better than yesterday. Patient wore BiPAP intermittently last night. No fever or chills. History of bronchiectasis. PFT on January 12 shows mild restrictive ventilatory defect - Physical Exam Vital Signs Temp Pulse Resp BP Pulse Ox 98.6 F 106 H 18 174/74 H 93 10/19/18 13:59 10/19/18 14:11 10/19/18 13:59 10/19/18 14:11 10/19/18 13:59 Oxygen Flow Rate (L/min) 5 Oxygen Delivery Method Nasal Cannula Weight: 349 lb 10.45 oz Body Mass Index (BMI) 46.1 Intake and Output for Last 24 Hours 10/17/18 10/18/18 10/19/18 23:59 23:59 23:59 Intake Total 220 / 220 445 / 445 Output Total 250 / 250 Balance 220 / 220 195 / 195 Microbiology Past 72 Hours 10/18/18 19:20 Respiratory Panel (PCR) - Final Mucosa - Nose RSV B Laboratory Tests Past 24 Hrs 10/18/18 10/18/18 10/18/18 14:55 18:41 21:15 Sodium 142 Potassium 3.6 Chloride 101 Carbon Dioxide 34.0 H Anion Gap 7 BUN 14 Creatinine 1.28 Estim Creat Clear Calc 67.62 Est GFR (MDRD) Af Amer 73 Est GFR (MDRD) Non-Af 60 BUN/Creatinine Ratio 10.9 Glucose 161 H Calcium 8.4 L Troponin I 0.065 H 0.051 H 0.051 H Assessment/Plan This patient was seen in conjunction with Tanya BALDERAS. I have independently interviewed and examined the patient and reviewed pertinent history, examination findings, laboratory and plan of management. I have reviewed the note and agree with the documented findings with the few additional points. In brief, patient is admitted for acute on chronic shortness of breath consistent with bronchospasm due to bronchiectasis exacerbation probably from viral bronchitis, RSV-B. Chest x-ray does not show acute pathology. EKG with no significant ST-T changes. Patient also has history of coronary artery disease as mentioned above. Serial troponin showed downward trends. I have discussed my assessment with HORIZONTAL BORING MILL OPERATORTanya and orders have been reviewed. Clinical Impression(s) from Imaging Studies Chest X-Ray 10/18/18 14:15 IMPRESSION: No acute thoracic pathology. Active Medications Acetaminophen (Tylenol) 650 mg PO Q6H PRN PRN PRN Reason: Mild Pain (scale 0-3)/T>100.7 Last Admin: 10/19/18 06:17 Dose: 650 mg Albuterol Sulfate (Ventolin Aerosols) 2.5 mg INHALATION Q2H PRN PRN PRN Reason: SHORTNESS OF BREATH Albuterol/Ipratropium (Duoneb) 3 ml INHALATION Q4H.RT [facility] Last Admin: 10/19/18 15:06 Dose: 3 ml Aspirin (Ecotrin) 81 mg PO DAILY@0800 [facility] Last Admin: 10/19/18 08:38 Dose: 81 mg Atorvastatin Calcium (Lipitor) 20 mg PO QHS [facility] Duloxetine HCl (Cymbalta) 30 mg PO DAILY [facility] Last Admin: 10/19/18 09:21 Dose: 30 mg Enoxaparin Sodium (Lovenox) 40 mg SC DAILY [facility] Last Admin: 10/19/18 09:21 Dose: 40 mg Gabapentin (Neurontin) 100 mg PO DAILY PRN PRN Reason: nerve pain Hydralazine HCl (Apresoline Iv) 20 mg IV Q4H PRN PRN PRN Reason: SBP >160 or DBP >100 Last Admin: 10/19/18 14:11 Dose: 20 mg Hydrochlorothiazide (Hctz) 25 mg PO DAILY [facility] Last Admin: 10/19/18 09:21 Dose: 25 mg Isosorbide Mononitrate (Imdur) 30 mg PO DAILY [facility] Last Admin: 10/19/18 09:21 Dose: 30 mg Lisinopril (Zestril) 40 mg PO DAILY [facility] Last Admin: 10/19/18 09:21 Dose: 40 mg Methylprednisolone (Solu-Medrol) 40 mg IV Q8 [facility] Last Admin: 10/19/18 14:07 Dose: 40 mg Multivitamins (Multivitamin) 1 tablet PO DAILYCM [facility] Last Admin: 10/19/18 08:38 Dose: 1 tablet Sodium Chloride () 5 - 15 ml IV UD PRN PRN Reason: SALINE FLUSH Last Admin: 10/19/18 06:27 Dose: 10 ml Sodium Chloride ([place] Nasal [place]) 1 - 2 spray NASAL Q4H PRN PRN Reason: Stuffed Nose Last Admin: 10/19/18 08:41 Dose: 2 sprays Tamsulosin HCl (Flomax) 0.4 mg PO DAILY@0830 [facility] Last Admin: 10/19/18 08:38 Dose: 0.4 mg Code Visit Inpatient E&M: 70447 [facility] Hosp L3
--- NOTE | 2018-10-19 13:50 | CASEMGMT ---
Living will in Echart, POA is not. Living will printed and placed on chart. Pt asleep at present, SW will ask pt as time allows about POA form. DHEERAJ Pretty, RAILROAD OPERATING ENGINEER
[2018-10-19] MEDS: Atorvastatin Calcium 20 MG Tablet PO (22:05)
[2018-10-20] VITALS (27 sets, daily range): BP systolic 126–183; BP diastolic 67–89; PULSE 90–128; RESP 12–24; TEMP 36.4–37.2; O2SAT 93–98
--- NOTE | 2018-10-20 04:03 | NURSING ---
Pt with a 20 beat run VT on monitor. RN to room to take VS. Pt c/o dizziness. VSS. aware. BMP and Mg ordered for AM.
[2018-10-20] MEDS: 0.9% NaCl Peripheral Flush Adult/Peds IV ×5 (06:03→21:40)
[2018-10-20 06:47] LABS: Anion Gap 9 (5-15); BUN 22 mg/dL (7-18); Calcium,Total 8.4 mg/dL (8.5-10.1); Chloride 101 mmol/L (98-107); Creatinine, Serum 1.22 mg/dL (0.70-1.30); EST Glomerular Filtration Rate 64 mL/min (>60); Est Glom Filt Rate - Afr Amer 77 mL/min (>60); Estimated Creatinine Clearance 70.95 ml/min; Glucose 167 mg/dL (74-106); Magnesium 2.2 mg/dL (1.6-2.6); Potassium 3.8 mmol/L (3.5-5.1); Sodium Level 140 mmol/L (136-145)
[2018-10-20] MEDS: Ipratropium/Albuterol Sulfate 3 ML AMPUL.NEB INHALATION ×5 (07:17→22:26)
[2018-10-20] MEDS: DULoxetine Hcl 30 MG Capsule PO (08:32)
[2018-10-20] MEDS: Isosorbide Mononitrate 30 MG Tablet PO (08:32)
[2018-10-20] MEDS: Aspirin E.C. 81 MG Tablet PO (08:32)
[2018-10-20] MEDS: Enoxaparin 40 MG/0.4 ML Syringe SC (08:33)
[2018-10-20] MEDS: Multivitamins,Therapeutic Tablet 1 TABLET PO (08:37)
[2018-10-20] MEDS: Lisinopril 40 MG Tablet PO (08:37)
[2018-10-20] MEDS: hydroCHLOROthiazide 25 MG Tablet PO (08:37)
[2018-10-20] MEDS: Sodium Chloride 0.65% 1 SPRAY SPRAY.BTL NASAL (08:48)
[2018-10-20] MEDS: Tamsulosin HCl 0.4 MG Capsule PO (10:41)
--- NOTE | 2018-10-20 12:21 | PCM.PROGNOTE ---
<Tanya Velázquez - Last Filed: 10/20/18 12:26> Subjective: Patient seen and examined. Reports mild improvement in breathing. Complains of nasal congestion and chest congestion. Unable to produce sputum. Denies fever, chills. No other complaints. - Physical Exam General: Alert, Oriented x3, Cooperative HEENT: Atraumatic, PERRLA, EOMI, Normocephalic Neck: Supple, No JVD, Negative Carotid Bruits Lungs: Clear to auscultation, Diminished Cardiovascular: Regular Rhythm, Normal S1, Normal S2, No murmurs, Tachycardic Abdomen: Bowel Sounds Present, Soft, Non Tender, Non-Distended, Obese Extremities: No clubbing, No cyanosis, No edema, Capillary Refill Less than 3 Seconds Skin: No rashes, No breakdown Musculoskeletal: No Tenderness to Palpation of Joints or Extremities Neurological: Cranial nerves II-XII grossly intact, Neuro grossly intact Psych/Mental Status: Normal Affect, Appropriate Vital Signs Temp Pulse Resp BP Pulse Ox 97.5 F L 108 H 24 H 126/83 H 94 10/20/18 10:42 10/20/18 11:00 10/20/18 10:47 10/20/18 10:42 10/20/18 11:07 Oxygen Flow Rate (L/min) 4 Oxygen Delivery Method Nasal Cannula Weight: 349 lb 10.45 oz Body Mass Index (BMI) 46.1 Intake and Output for Last 24 Hours 10/18/18 10/19/18 10/20/18 23:59 23:59 23:59 Intake Total 220 / 220 1210 / 1210 110 / 110 Output Total 250 / 250 Balance 220 / 220 960 / 960 110 / 110 Microbiology Past 72 Hours 10/18/18 19:20 Respiratory Panel (PCR) - Final Mucosa - Nose RSV B Laboratory Tests Past 24 Hrs 10/20/18 05:21 Sodium 140 Potassium 3.8 Chloride 101 Carbon Dioxide 30.0 Anion Gap 9 BUN 22 H Creatinine 1.22 Estim Creat Clear Calc 70.95 Est GFR (MDRD) Af Amer 77 Est GFR (MDRD) Non-Af 64 BUN/Creatinine Ratio 18.0 Glucose 167 H Calcium 8.4 L Magnesium 2.2 Medical Necessity - Tobacco Use Smoking Status: Former smoker Tobacco Use: Cigarettes Assessment/Plan 1. Chronic hypoxic respiratory failure due to chronic bronchiectasis with bronchospasm due to acute RSV B-pulmonary function test January 2018 showed mild restrictive ventilatory impairment. No reported history of COPD. Patient is documented to be noncompliant with inhaler regimen, BiPAP regimen etc. Follows with Dr. Bundy. Patient chronically wears 4-5 L nasal cannula continuously. Oxygen 94% on 4 L. Continue supplement oxygen to maintain O2 at or above 90%. Echocardiogram completed 08/13/2018 due to ongoing dyspnea on exertion. EF 55%, stage I diastolic dysfunction, pulmonary artery systolic pressure 32 mmHg. Acapella twice daily. Albuterol and DuoNeb aerosols. IV Solu-Medrol. BIPAP QHS. Add Mucinex 1200 mg p.o. twice daily. 2. Abnormal troponin, underlying CAD-cath in January 2018 showed known occluded right coronary artery with [id number] collaterals. Moderate disease in the circumflex artery. Follows with Dr. Pena. Continue aspirin, statin, isosorbide. Patient denies chest pain. Troponins did not trend upward. EKG without ST-T changes. Recommend continued outpatient follow-up with cardiology. 3. Hypertension-continue home HCTZ/lisinopril, isosorbide. 4. Hyperlipidemia-continue statin. 5. History of nicotine dependence-reports he is 5 months tobacco free. Encouraged continued cessation. 6. Morbid obesity-encouraged diet and lifestyle modifications. 7. BPH-continue home Flomax regimen. 8. Depression-continue home Cymbalta regimen. 9. Obstructive sleep apnea-continue BiPAP nightly. History of noncompliance. DVT prophylaxis- Lovenox sc. This patient was seen by JAHAIRA Vee under the supervision of Dr. Ryan. <Zheng Ryan - Last Filed: 10/20/18 14:19> Subjective: Seen and examined. As mentioned above, patient has improvement in breathing but is still congested. Patient was on BiPAP last night and not able to rest. Patient also had about 34 beats of V. tach of total duration 6.8-second suggestive of NSVT with intermittent pulsus bigeminy and 6 beats of NSVT Patient denies subjective awareness of irregular heartbeat. Denies chest pain. Potassium and magnesium normal. - Physical Exam General: Alert, Oriented x3, Cooperative HEENT: Atraumatic, PERRLA, EOMI, Normocephalic Neck: Supple, No JVD, Negative Carotid Bruits Lungs: Diminished, Rhonchi, Short of Breath Cardiovascular: Regular Rhythm, Normal S1, No murmurs, - - 34 beats of NSVT with occasional pulsus bigeminy Abdomen: Bowel Sounds Present, Soft, Non Tender, Non-Distended, Obese Extremities: Capillary Refill Less than 3 Seconds, Edema Skin: No rashes, No breakdown Musculoskeletal: No Tenderness to Palpation of Joints or Extremities, Arthritic Changes, Muscle Wasting Neurological: Cranial nerves II-XII grossly intact Psych/Mental Status: Normal Affect, Appropriate Vital Signs Temp Pulse Resp BP Pulse Ox 97.5 F L 108 H 24 H 126/83 H 94 10/20/18 10:42 10/20/18 11:00 10/20/18 10:47 10/20/18 10:42 10/20/18 11:07 Oxygen Flow Rate (L/min) 4 Oxygen Delivery Method Nasal Cannula Weight: 349 lb 10.45 oz Body Mass Index (BMI) 46.1 Intake and Output for Last 24 Hours 10/18/18 10/19/18 10/20/18 23:59 23:59 23:59 Intake Total 220 / 220 1210 / 1210 710 / 710 Output Total 250 / 250 Balance 220 / 220 960 / 960 710 / 710 Microbiology Past 72 Hours 10/18/18 19:20 Respiratory Panel (PCR) - Final Mucosa - Nose RSV B Laboratory Tests Past 24 Hrs 10/20/18 05:21 Sodium 140 Potassium 3.8 Chloride 101 Carbon Dioxide 30.0 Anion Gap 9 BUN 22 H Creatinine 1.22 Estim Creat Clear Calc 70.95 Est GFR (MDRD) Af Amer 77 Est GFR (MDRD) Non-Af 64 BUN/Creatinine Ratio 18.0 Glucose 167 H Calcium 8.4 L Magnesium 2.2 Assessment/Plan This patient was seen in conjunction with DRY CHAIN WORKER, Tanya. I have independently interviewed and examined the patient and reviewed pertinent history, examination findings, laboratory and plan of management. I have reviewed the note and agree with the documented findings with the few additional points. In brief, patient is admitted for acute on chronic shortness of breath consistent with bronchospasm due to bronchiectasis exacerbation probably from viral bronchitis, RSV-B. Chest x-ray does not show acute pathology. EKG with no significant ST-T changes. Serial troponin showed downward trends. The patient has history of atherosclerotic heart disease. Patient had diagnostic cardiac cath in January 2018 which showed known occluded RCA with [id number] collaterals and OM3 75%. Prior to that, pharmacological nuclear stress test was positive of basal inferior and basal inferolateral ischemia. Patient had echo in August 2018 which showed EF 55%, moderate concentric LVH, with a stage I diastolic dysfunction. Mild TR, RVSP 32 mmHg. Normal right and left atria. Normal RV size and systolic function. Patient also had about 34 beats of V. tach of total duration 6.8-second suggestive of NSVT with intermittent pulsus bigeminy and 6 beats of NSVT, probably due to history of ischemic cardiomyopathy. Patient denies subjective awareness of irregular heartbeat. Denies chest pain. Potassium and magnesium normal. I have discussed my assessment with Tanya BALDERAS and orders have been reviewed. Code Visit Inpatient E&M: 88794 Subs Hosp L3
--- NOTE | 2018-10-20 12:25 | PN_ITS ---
<Tanya Velázquez - Last Filed: 10/20/18 12:26> Subjective: Patient seen and examined. Reports mild improvement in breathing. Complains of nasal congestion and chest congestion. Unable to produce sputum. Denies fever, chills. No other complaints. - Physical Exam General: Alert, Oriented x3, Cooperative HEENT: Atraumatic, PERRLA, EOMI, Normocephalic Neck: Supple, No JVD, Negative Carotid Bruits Lungs: Clear to auscultation, Diminished Cardiovascular: Regular Rhythm, Normal S1, Normal S2, No murmurs, Tachycardic Abdomen: Bowel Sounds Present, Soft, Non Tender, Non-Distended, Obese Extremities: No clubbing, No cyanosis, No edema, Capillary Refill Less than 3 Seconds Skin: No rashes, No breakdown Musculoskeletal: No Tenderness to Palpation of Joints or Extremities Neurological: Cranial nerves II-XII grossly intact, Neuro grossly intact Psych/Mental Status: Normal Affect, Appropriate Vital Signs Temp Pulse Resp BP Pulse Ox 97.5 F L 108 H 24 H 126/83 H 94 10/20/18 10:42 10/20/18 11:00 10/20/18 10:47 10/20/18 10:42 10/20/18 11:07 Oxygen Flow Rate (L/min) 4 Oxygen Delivery Method Nasal Cannula Weight: 349 lb 10.45 oz Body Mass Index (BMI) 46.1 Intake and Output for Last 24 Hours 10/18/18 10/19/18 10/20/18 23:59 23:59 23:59 Intake Total 220 / 220 1210 / 1210 110 / 110 Output Total 250 / 250 Balance 220 / 220 960 / 960 110 / 110 Microbiology Past 72 Hours 10/18/18 19:20 Respiratory Panel (PCR) - Final Mucosa - Nose RSV B Laboratory Tests Past 24 Hrs 10/20/18 05:21 Sodium 140 Potassium 3.8 Chloride 101 Carbon Dioxide 30.0 Anion Gap 9 BUN 22 H Creatinine 1.22 Estim Creat Clear Calc 70.95 Est GFR (MDRD) Af Amer 77 Est GFR (MDRD) Non-Af 64 BUN/Creatinine Ratio 18.0 Glucose 167 H Calcium 8.4 L Magnesium 2.2 Medical Necessity - Tobacco Use Smoking Status: Former smoker Tobacco Use: Cigarettes Assessment/Plan 1. Chronic hypoxic respiratory failure due to chronic bronchiectasis with bronchospasm due to acute RSV B-pulmonary function test January 2018 showed mild restrictive ventilatory impairment. No reported history of COPD. Patient is documented to be noncompliant with inhaler regimen, BiPAP regimen etc. Follows with Dr. Bundy. Patient chronically wears 4-5 L nasal cannula continuously. Oxygen 94% on 4 L. Continue supplement oxygen to maintain O2 at or above 90%. Echocardiogram completed 08/13/2018 due to ongoing dyspnea on exertion. EF 55%, stage I diastolic dysfunction, pulmonary artery systolic pressure 32 mmHg. Acapella twice daily. Albuterol and DuoNeb aerosols. IV Solu-Medrol. BIPAP QHS. Add Mucinex 1200 mg p.o. twice daily. 2. Abnormal troponin, underlying CAD-cath in January 2018 showed known occluded right coronary artery with [id number] collaterals. Moderate disease in the circumflex artery. Follows with Dr. Pena. Continue aspirin, statin, isosorbide. Patient denies chest pain. Troponins did not trend upward. EKG without ST-T changes. Recommend continued outpatient follow-up with cardiology. 3. Hypertension-continue home HCTZ/lisinopril, isosorbide. 4. Hyperlipidemia-continue statin. 5. History of nicotine dependence-reports he is 5 months tobacco free. Encoura geadela continued cessation. 6. Morbid obesity-encouraged diet and lifestyle modifications. 7. BPH-continue home Flomax regimen. 8. Depression-continue home Cymbalta regimen. 9. Obstructive sleep apnea-continue BiPAP nightly. History of noncompliance. DVT prophylaxis- Lovenox sc. This patient was seen by JAHAIRA Vee under the supervision of Dr. Ryan. <Zheng Ryan - Last Filed: 10/20/18 14:19> Subjective: Seen and examined. As mentioned above, patient has improvement in breathing but is still congested. Patient was on BiPAP last night and not able to rest. Patient also had about 34 beats of V. tach of total duration 6.8-second suggestive of NSVT with intermittent pulsus bigeminy and 6 beats of NSVT Patient denies subjective awareness of irregular heartbeat. Denies chest pain. Potassium and magnesium normal. - Physical Exam General: Alert, Oriented x3, Cooperative HEENT: Atraumatic, PERRLA, EOMI, Normocephalic Neck: Supple, No JVD, Negative Carotid Bruits Lungs: Diminished, Rhonchi, Short of Breath Cardiovascular: Regular Rhythm, Normal S1, No murmurs, - - 34 beats of NSVT with occasional pulsus bigeminy Abdomen: Bowel Sounds Present, Soft, Non Tender, Non-Distended, Obese Extremities: Capillary Refill Less than 3 Seconds, Edema Skin: No rashes, No breakdown Musculoskeletal: No Tenderness to Palpation of Joints or Extremities, Arthritic Changes, Muscle Wasting Neurological: Cranial nerves II-XII grossly intact Psych/Mental Status: Normal Affect, Appropriate Vital Signs Temp Pulse Resp BP Pulse Ox 97.5 F L 108 H 24 H 126/83 H 94 10/20/18 10:42 10/20/18 11:00 10/20/18 10:47 10/20/18 10:42 10/20/18 11:07 Oxygen Flow Rate (L/min) 4 Oxygen Delivery Method Nasal Cannula Weight: 349 lb 10.45 oz Body Mass Index (BMI) 46.1 Intake and Output for Last 24 Hours 10/18/18 10/19/18 10/20/18 23:59 23:59 23:59 Intake Total 220 / 220 1210 / 1210 710 / 710 Output Total 250 / 250 Balance 220 / 220 960 / 960 710 / 710 Microbiology Past 72 Hours 10/18/18 19:20 Respiratory Panel (PCR) - Final Mucosa - Nose RSV B Laboratory Tests Past 24 Hrs 10/20/18 05:21 Sodium 140 Potassium 3.8 Chloride 101 Carbon Dioxide 30.0 Anion Gap 9 BUN 22 H Creatinine 1.22 Estim Creat Clear Calc 70.95 Est GFR (MDRD) Af Amer 77 Est GFR (MDRD) Non-Af 64 BUN/Creatinine Ratio 18.0 Glucose 167 H Calcium 8.4 L Magnesium 2.2 Assessment/Plan This patient was seen in conjunction with FACULTY ADMINISTRATOR, Tanya. I have independently interviewed and examined the patient and reviewed pertinent history, examination findings, laboratory and plan of management. I have reviewed the note and agree with the documented findings with the few additional points. In brief, patient is admitted for acute on chronic shortness of breath consistent with bronchospasm due to bronchiectasis exacerbation probably from viral bronchitis, RSV-B. Chest x-ray does not show acute pathology. EKG with no significant ST-T changes. Serial troponin showed downward trends. The patient has history of atherosclerotic heart disease. Patient had diagnostic cardiac cath in January 2018 which showed known occluded RCA with [id number] collaterals and OM3 75%. Prior to that, pharmacological nuclear stress test was positive of basal inferior and basal inferolateral ischemia. Patient had echo in August 2018 which showed EF 55%, moderate concentric LVH, with a stage I diastolic dysfunction. Mild TR, RVSP 32 mmHg. Normal right and left atria. Normal RV size and systolic function. Patient also had about 34 beats of V. tach of total duration 6.8-second suggestive of NSVT with intermittent pulsus bigeminy and 6 beats of NSVT, probably due to history of ischemic cardiomyopathy. Patient denies subjective awareness of irregular heartbeat. Denies chest pain. Potassium and magnesium normal. I have discussed my assessment with Tanya BALDERAS and orders have been reviewed. Code Visit Inpatient E&M: 87077 Subs Hosp L3
[2018-10-20] MEDS: guaiFENesin 1,200 MG Tablet 1200 MG PO ×2 (14:36→21:27)
[2018-10-20] MEDS: Fluticasone 0.05% 1 SPRAY NASAL.SRY 2 SPRAY NASAL (14:37)
[2018-10-20] MEDS: Calcium Carbonate 500 MG Tablet PO (21:26)
[2018-10-20] MEDS: Acetaminophen 325 MG Tablet 650 MG PO (21:27)
[2018-10-20] MEDS: Atorvastatin Calcium 20 MG Tablet PO (21:27)
[2018-10-20] MEDS: hydrALAZINE 20 MG/ML Vial IV (21:40)
[2018-10-21] VITALS (11 sets, daily range): BP systolic 122–158; BP diastolic 80–98; PULSE 95–116; RESP 12–22; TEMP 36.5–37.1; O2SAT 94–97
[2018-10-21] MEDS: Albuterol 2.5 MG/3 ML VIAL.NEB. INHALATION (03:55)
[2018-10-21] MEDS: 0.9% NaCl Peripheral Flush Adult/Peds IV (05:58)
[2018-10-21] MEDS: Acetaminophen 325 MG Tablet 650 MG PO (06:03)
[2018-10-21] MEDS: Ipratropium/Albuterol Sulfate 3 ML AMPUL.NEB INHALATION ×2 (07:06→10:41)
[2018-10-21] MEDS: Multivitamins,Therapeutic Tablet 1 TABLET PO (08:18)
[2018-10-21] MEDS: Lisinopril 40 MG Tablet PO (08:18)
[2018-10-21] MEDS: Aspirin E.C. 81 MG Tablet PO (08:18)
[2018-10-21] MEDS: DULoxetine Hcl 30 MG Capsule PO (08:18)
[2018-10-21] MEDS: guaiFENesin 1,200 MG Tablet 1200 MG PO (08:18)
[2018-10-21] MEDS: hydroCHLOROthiazide 25 MG Tablet PO (08:18)
[2018-10-21] MEDS: Isosorbide Mononitrate 30 MG Tablet PO (08:18)
[2018-10-21] MEDS: Tamsulosin HCl 0.4 MG Capsule PO (08:18)
[2018-10-21] MEDS: Enoxaparin 40 MG/0.4 ML Syringe SC (08:19)
[2018-10-21] MEDS: Fluticasone 0.05% 1 SPRAY NASAL.SRY 2 SPRAY NASAL (08:19)
--- NOTE | 2018-10-21 10:53 | PCM.DC ---
You will use the following diet at home:: Cardiac Discharge Activity: Return to Normal Activity Call your doctor if you observe: Shortness of breath, Dizziness, Fainting spells, Chest pain Allergies/Adverse Reactions: Allergies codeine Adverse Reaction (Verified 10/18/18 13:47) Other-dizzy Medications to take at Discharge Aspirin E.C. [Ecotrin] 81 mg PO DAILY@0800 02/27/17 Ibuprofen 200 mg PO Q8H PRN PRN 02/27/17 nitroglycerin 0.4 mg sublingual tablet 0.4 mg SUBLINGUAL Q5-15M PRN 01/19/18 Tamsulosin HCl [Flomax] 0.4 mg PO DAILY 02/16/18 Acapella BID [id number] 05/29/18 Ascorbic Acid [Vitamin C] 1,000 mg PO DAILY 10/18/18 Atorvastatin Calcium [Lipitor] 20 mg PO DAILY 10/18/18 Budesonide/Formoterol 160/4.5 [Symbicort 160/4.5 Mcg Inhaler (SP)] 2 puff INHALATION BID 10/18/18 Duloxetine Hcl [Cymbalta] 30 mg PO DAILY 10/18/18 Gabapentin [Neurontin] 100 mg PO DAILY PRN 10/18/18 Isosorbide Mononitrate [Imdur] 30 mg PO DAILY 10/18/18 Lisinopril-Hctz 20-12.5mg 2 tab PO DAILY 10/18/18 Multivitamins,Therapeutic [Multivitamin] 1 tablet PO DAILY 10/18/18 Albuterol Aerosols [Ventolin Aerosols] 2.5 mg INHALATION Q2H PRN PRN #120 vial.neb. 10/21/18 Ipratropium/Albuterol Sulfate [Duoneb] 3 ml INHALATION Q4H.RT #120 ampul.neb 10/21/18 predniSONE tablet See Taper PO DAILY #30 tablet 10/21/18 The following prescriptions were given: Albuterol Aerosols [Ventolin Aerosols] 2.5 mg INHALATION Q2H PRN PRN #120 vial.neb. PRN Reason: SHORTNESS OF BREATH Ipratropium/Albuterol Sulfate [Duoneb] 3 ml INHALATION Q4H.RT #120 ampul.neb predniSONE tablet See Taper PO DAILY #30 tablet Primary Care Physician: Natalie Brandt [Primary Care Provider] - Please follow up with your Primary Care Physician in: 1 Week Test Results: Test results from this visit will be discussed in further detail at your follow-up appointment, if applicable. Please Follow Up With: Eddie Stovall NP-C When: As Scheduled, 11/29/18. Please Follow Up With: Colt Bundy MD When: As scheduled, 10/31/18. Proposed Discharge Date: 10/21/18
--- NOTE | 2018-10-21 11:02 | DCINST_ITS ---
You will use the following diet at home:: Cardiac Discharge Activity: Return to Normal Activity Call your doctor if you observe: Shortness of breath, Dizziness, Fainting spells, Chest pain Allergies/Adverse Reactions: Allergies codeine Adverse Reaction (Verified 10/18/18 13:47) Other-dizzy Medications to take at Discharge Aspirin E.C. [Ecotrin] 81 mg PO DAILY@0800 02/27/17 Ibuprofen 200 mg PO Q8H PRN PRN 02/27/17 nitroglycerin 0.4 mg sublingual tablet 0.4 mg SUBLINGUAL Q5-15M PRN 01/19/18 Tamsulosin HCl [Flomax] 0.4 mg PO DAILY 02/16/18 Acapella BID [id number] 05/29/18 Ascorbic Acid [Vitamin C] 1,000 mg PO DAILY 10/18/18 Atorvastatin Calcium [Lipitor] 20 mg PO DAILY 10/18/18 Budesonide/Formoterol 160/4.5 [Symbicort 160/4.5 Mcg Inhaler (SP)] 2 puff INHALATION BID 10/18/18 Duloxetine Hcl [Cymbalta] 30 mg PO DAILY 10/18/18 Gabapentin [Neurontin] 100 mg PO DAILY PRN 10/18/18 Isosorbide Mononitrate [Imdur] 30 mg PO DAILY 10/18/18 Lisinopril-Hctz 20-12.5mg 2 tab PO DAILY 10/18/18 Multivitamins,Therapeutic [Multivitamin] 1 tablet PO DAILY 10/18/18 Albuterol Aerosols [Ventolin Aerosols] 2.5 mg INHALATION Q2H PRN PRN #120 vial.neb. 10/21/18 Ipratropium/Albuterol Sulfate [Duoneb] 3 ml INHALATION Q4H.RT #120 ampul.neb 10/21/18 predniSONE tablet See Taper PO DAILY #30 tablet 10/21/18 The following prescriptions were given: Albuterol Aerosols [Ventolin Aerosols] 2.5 mg INHALATION Q2H PRN PRN #120 vial.neb. PRN Reason: SHORTNESS OF BREATH Ipratropium/Albuterol Sulfate [Duoneb] 3 ml INHALATION Q4H.RT #120 ampul.neb predniSONE tablet See Taper PO DAILY #30 tablet Primary Care Physician: Natalie Brandt [Primary Care Provider] - Please follow up with your Primary Care Physician in: 1 Week Test Results: Test results from this visit will be discussed in further detail at your follow- up appointment, if applicable. Please Follow Up With: Eddie Stovall NP-C When: As Scheduled, 11/29/18. Please Follow Up With: Colt Bundy MD When: As scheduled, 10/31/18. Proposed Discharge Date: 10/21/18
--- NOTE | 2018-10-21 11:05 | CASEMGMT ---
JOHNSON DAWN NOTE: Call received from Cirilo Velázquez NP. Pt will be going on aerosals PRN and will need nebulizer. Call placed to pt's pharmacy, [facility], and they do not carry nebulizers. Call placed to [facility] and they do carry nebulizers and they have 2 in stock. Call placed to SHERRIE Marcelino, and she was informed of this. She stated she will give pt a script for the nebulizer and inform pt that he can pick this up @ [facility]. Jamie BALDWIN RN CM
--- NOTE | 2018-10-21 11:11 | PCM.DC.SUM ---
<Tanya Velázquez - Last Filed: 10/21/18 11:17> Discharge Date and Diagnosis Date of Admission: 10/18/18 Date of Discharge: 10/21/18 - Primary Discharge Diagnosis 1. Chronic hypoxic respiratory failure with exacerbation of chronic bronchiectasis and associated bronchospasm due to acute RSV B 2. Abnormal troponin, underlying CAD-suspect abnormal troponin due to demand ischemia as a result of #1 3. Hypertension 4. Hyperlipidemia 5. History of nicotine dependence 6. Morbid obesity 7. BPH 8. Depression 9. 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 Electronically Signed: Luis Fernadno Mcdaniel, at 14:43 EST Tel , Service support , Operations: None Procedures: None Summary of Care Provided: The patient is a 62 year old M admitted 10/18/2018 due to shortness of breath. He has a past medical history of chronic respiratory failure with hypoxia, bronchiectasis, obstructive sleep apnea, history of nicotine dependence, morbid obesity, hypertension, hyperlipidemia, CAD, BPH, depression. 1. Chronic hypoxic respiratory failure due to chronic bronchiectasis with bronchospasm due to acute RSV B-pulmonary function test January 2018 showed mild restrictive ventilatory impairment. No reported history of COPD. Patient is documented to be noncompliant with inhaler regimen, BiPAP regimen etc. Follows with Dr. Bundy. Patient chronically wears 4-5 L nasal cannula continuously. Oxygen 94% on 4 L at discharge. Continue supplement oxygen to maintain O2 at or above 90%. Echocardiogram completed 08/13/2018 due to ongoing dyspnea on exertion. EF 55%, stage I diastolic dysfunction, pulmonary artery systolic pressure 32 mmHg. Acapella twice daily. BiPAP nightly. Patient will be discharged on prednisone taper. Discharged with nebulizer for chronic bronchiectasis and albuterol/DuoNeb aerosols. Follow-up with primary care physician in 1 week. Follow-up with Dr. Bundy as scheduled 10/31/2018. 2. Abnormal troponin, underlying CAD-cath in January 2018 showed known occluded right coronary artery with [id number] collaterals. Moderate disease in the circumflex artery. Follows with Dr. Pena. Continue aspirin, statin, isosorbide. Patient denies chest pain. Troponins did not trend upward. EKG without ST-T changes. Continue outpatient follow-up with cardiology. Patient has appointment 11/29/2018 with cardiology. 3. Hypertension-continue home HCTZ/lisinopril, isosorbide. 4. Hyperlipidemia-continue statin. 5. History of nicotine dependence-reports he is 5 months tobacco free. Encouraged continued cessation. 6. Morbid obesity-encouraged diet and lifestyle modifications. 7. BPH-continue home Flomax regimen. 8. Depression-continue home Cymbalta regimen. 9. Obstructive sleep apnea-continue BiPAP nightly. History of noncompliance. General: Alert, Oriented x3, Cooperative HEENT: Atraumatic, PERRLA, EOMI, Normocephalic Neck: Supple, No JVD, Negative Carotid Bruits Lungs: Clear to auscultation, Diminished Cardiovascular: Regular Rhythm, Normal S1, Normal S2, No murmurs, Tachycardic Abdomen: Bowel Sounds Present, Soft, Non Tender, Non-Distended, Obese Extremities: No clubbing, No cyanosis, No edema, Capillary Refill Less than 3 Seconds Skin: No rashes, No breakdown Musculoskeletal: No Tenderness to Palpation of Joints or Extremities Neurological: Cranial nerves II-XII grossly intact, Neuro grossly intact Psych/Mental Status: Normal Affect, Appropriate Patient seen and examined prior to discharge. Physical assessment as noted above. Patient is stable for discharge with follow up recommendations as noted above. This patient was seen by JAHAIRA Vee under the supervision of Dr. Reed. - Physical Exam Vital Signs Temp Pulse Resp BP Pulse Ox 97.7 F L 104 H 20 H 122/98 H 94 10/21/18 08:26 10/21/18 10:41 10/21/18 10:41 10/21/18 08:26 10/21/18 08:26 Oxygen Flow Rate (L/min) 4 Oxygen Delivery Method Nasal Cannula Weight: 349 lb 10.45 oz Body Mass Index (BMI) 46.1 Intake and Output for Last 24 Hours 10/19/18 10/20/18 10/21/18 23:59 23:59 23:59 Intake Total 1210 / 1210 1070 / 1070 120 / 120 Output Total 250 / 250 200 / 200 Balance 960 / 960 1070 / 1070 -80 / -80 Microbiology Past 72 Hours 10/18/18 19:20 Respiratory Panel (PCR) - Final Mucosa - Nose RSV B Discharge Diet: Low fat/ Low Cholesterol Discharge Activity: Return to Normal Activity Call your doctor if you observe: Shortness of breath, Dizziness, Fainting spells, Chest pain Home Medications: Medications to take at Discharge Aspirin E.C. [Ecotrin] 81 mg PO DAILY@0800 02/27/17 Ibuprofen 200 mg PO Q8H PRN PRN 02/27/17 nitroglycerin 0.4 mg sublingual tablet 0.4 mg SUBLINGUAL Q5-15M PRN 01/19/18 Tamsulosin HCl [Flomax] 0.4 mg PO DAILY 02/16/18 Acapella BID [id number] 05/29/18 Ascorbic Acid [Vitamin C] 1,000 mg PO DAILY 10/18/18 Atorvastatin Calcium [Lipitor] 20 mg PO DAILY 10/18/18 Budesonide/Formoterol 160/4.5 [Symbicort 160/4.5 Mcg Inhaler (SP)] 2 puff INHALATION BID 10/18/18 Duloxetine Hcl [Cymbalta] 30 mg PO DAILY 10/18/18 Gabapentin [Neurontin] 100 mg PO DAILY PRN 10/18/18 Isosorbide Mononitrate [Imdur] 30 mg PO DAILY 10/18/18 Lisinopril-Hctz 20-12.5mg 2 tab PO DAILY 10/18/18 Multivitamins,Therapeutic [Multivitamin] 1 tablet PO DAILY 10/18/18 Albuterol Aerosols [Ventolin Aerosols] 2.5 mg INHALATION Q2H PRN PRN #120 vial.neb. 10/21/18 Ipratropium/Albuterol Sulfate [Duoneb] 3 ml INHALATION Q4H.RT #120 ampul.neb 10/21/18 predniSONE tablet See Taper PO DAILY #30 tablet 10/21/18 Following Prescrptions Were Given to Patient: Albuterol Aerosols [Ventolin Aerosols] 2.5 mg INHALATION Q2H PRN PRN #120 vial.neb. PRN Reason: SHORTNESS OF BREATH Ipratropium/Albuterol Sulfate [Duoneb] 3 ml INHALATION Q4H.RT #120 ampul.neb predniSONE tablet See Taper PO DAILY #30 tablet Primary Care Physician: Natalie Brandt [Primary Care Provider] - Please follow up with your Primary Care Physician in: 1 Week Please Follow Up With: Eddie Stovall NP-C When: As Scheduled, 11/29/18. Please Follow Up With: Colt Bundy MD When: As scheduled, 10/31/18. Disposition: Home Minutes spent on discharge:: 35 Patient Condition:: Stable Medical Necessity - Tobacco Use Smoking Status: Former smoker Tobacco Use: Cigarettes Meaningful Use Info Meaningful Use Diagnoses (Choose all that apply): None applicable <Lu Reed - Last Filed: 10/21/18 11:47> Discharge Date and Diagnosis - Secondary Discharge Diagnosis Chronic Problems (Last Reviewed 10/01/18 @ 08:21 by Tanya Cohn) Morbid obesity with BMI of 45.0-49.9, adult (Chronic) Chronic respiratory failure with hypoxia (Chronic) 2 L/min at rest and 4 L/min on exertion KIRSTIE (obstructive sleep apnea) (Chronic) BiPAP 16/10 cmH2O with a 6 L/min supplemental oxygen bleed Bronchiectasis (Chronic) Hypersomnia (Chronic) Lung nodule (Chronic) 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 Patient was admitted because of worsening shortness of breath and he was found to have acute exacerbation of chronic bronchiectasis which is probably triggered by respiratory syncytial virus type B. His chest x-ray showed no acute findings, pneumonia ruled out. Patient was treated with bronchodilators and IV steroids and also he needed BiPAP. His ABG revealed pH of 7.38, PCO2 of 53 and PO2 of 62. His routine blood work was unremarkable. His troponin was borderline elevated which is attributed to probable demand ischemia. EKG revealed no acute ischemic changes. With above-mentioned treatment, patient symptoms improved. Really, patient required up to 9 L of oxygen as well as BiPAP to maintain his pulse ox. With treatment, his symptoms improved and his oxygen requirement decreased. Will be able to take him down to 4 L of oxygen upon discharge. His baseline at home has been around 4-6 L of oxygen. Patient discharged home in a stable medical condition, discharged on tapering course of prednisone, continued on bronchodilators, started on DuoNeb nebulizer every 4 hours, discharged with nebulizer, plan to follow-up with pulmonology on October 31, 2018, phlegm with PCP in 1 week. - Physical Exam General: Alert, Oriented x3, Cooperative, No apparent distress. HEENT: Atraumatic, PERRLA, EOMI. Neck: Supple, No JVD, Negative Carotid Bruits, Trachea Midline, Thyroid Normal. Lungs: Diminished breath sounds bilateral, scattered rhonchi, No wheeze, No rales. Cardiovascular: Regular rate, Regular Rhythm, Normal S1, Normal S2, PMI Normal. Abdomen: Bowel Sounds Present, Soft, Non Tender, Non-Distended, No Hepato-splenomegaly. Extremities: No clubbing, No cyanosis, No edema Skin: No rashes, No breakdown Neurological: Neuro grossly intact Vital Signs are stable. This note was generated with [employer] dictation software. It may contain incorrect words, spelling, and punctuation that were not noted in checking the note before signing. - Physical Exam Vital Signs Temp Pulse Resp BP Pulse Ox 97.7 F L 111 H 20 H 122/98 H 94 10/21/18 08:26 10/21/18 11:25 10/21/18 10:41 10/21/18 08:26 10/21/18 08:26 Oxygen Flow Rate (L/min) 4 Oxygen Delivery Method Nasal Cannula Weight: 349 lb 10.45 oz Body Mass Index (BMI) 46.1 Intake and Output for Last 24 Hours 10/19/18 10/20/18 10/21/18 23:59 23:59 23:59 Intake Total 1210 / 1210 1070 / 1070 120 / 120 Output Total 250 / 250 200 / 200 Balance 960 / 960 1070 / 1070 -80 / -80 Microbiology Past 72 Hours 10/18/18 19:20 Respiratory Panel (PCR) - Final Mucosa - Nose RSV B Minutes spent on discharge:: 27 Patient Condition:: Stable Meaningful Use Info Meaningful Use Diagnoses (Choose all that apply): None applicable Code Visit Inpatient E&M: 18031 Disch Hosp
--- NOTE | 2018-10-21 11:17 | DS.PCM_ITS ---
<Tanya Velázquez - Last Filed: 10/21/18 11:17> Discharge Date and Diagnosis Date of Admission: 10/18/18 Date of Discharge: 10/21/18 - Primary Discharge Diagnosis 1. Chronic hypoxic respiratory failure with exacerbation of chronic bronchiectasis and associated bronchospasm due to acute RSV B 2. Abnormal troponin, underlying CAD-suspect abnormal troponin due to demand ischemia as a result of #1 3. Hypertension 4. Hyperlipidemia 5. History of nicotine dependence 6. Morbid obesity 7. BPH 8. Depression 9. 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 Electronically Signed: Luis Fernando Mcdaniel, at 14:43 EST Tel , Service support , Operations: None Procedures: None Summary of Care Provided: The patient is a 62 year old M admitted 10/18/2018 due to shortness of breath. He has a past medical history of chronic respiratory failure with hypoxia, bronchiectasis, obstructive sleep apnea, history of nicotine dependence, morbid obesity, hypertension, hyperlipidemia, CAD, BPH, depression. 1. Chronic hypoxic respiratory failure due to chronic bronchiectasis with bronchospasm due to acute RSV B-pulmonary function test January 2018 showed mild restrictive ventilatory impairment. No reported history of COPD. Patient is documented to be noncompliant with inhaler regimen, BiPAP regimen etc. Follows with Dr. Bundy. Patient chronically wears 4-5 L nasal cannula continuously. Oxygen 94% on 4 L at discharge. Continue supplement oxygen to maintain O2 at or above 90%. Echocardiogram completed 08/13/2018 due to ongoing dyspnea on exertion. EF 55%, stage I diastolic dysfunction, pulmonary artery systolic pressure 32 mmHg. Acapella twice daily. BiPAP nightly. Patient will be discharged on prednisone taper. Discharged with nebulizer for chronic bronchiectasis and albuterol/DuoNeb aerosols. Follow-up with primary care physi dianna in 1 week. Follow-up with Dr. Bundy as scheduled 10/31/2018. 2. Abnormal troponin, underlying CAD-cath in January 2018 showed known occluded right coronary artery with [id number] collaterals. Moderate disease in the circumflex artery. Follows with Dr. Pena. Continue aspirin, statin, isosorbide. Patient denies chest pain. Troponins did not trend upward. EKG without ST-T changes. Continue outpatient follow-up with cardiology. Patient has appointment 11/29/2018 with cardiology. 3. Hypertension-continue home HCTZ/lisinopril, isosorbide. 4. Hyperlipidemia-continue statin. 5. History of nicotine dependence-reports he is 5 months tobacco free. Encouraged continued cessation. 6. Morbid obesity-encouraged diet and lifestyle modifications. 7. BPH-continue home Flomax regimen. 8. Depression-continue home Cymbalta regimen. 9. Obstructive sleep apnea-continue BiPAP nightly. History of noncompliance. General: Alert, Oriented x3, Cooperative HEENT: Atraumatic, PERRLA, EOMI, Normocephalic Neck: Supple, No JVD, Negative Carotid Bruits Lungs: Clear to auscultation, Diminished Cardiovascular: Regular Rhythm, Normal S1, Normal S2, No murmurs, Tachycardic Abdomen: Bowel Sounds Present, Soft, Non Tender, Non-Distended, Obese Extremities: No clubbing, No cyanosis, No edema, Capillary Refill Less than 3 Seconds Skin: No rashes, No breakdown Musculoskeletal: No Tenderness to Palpation of Joints or Extremities Neurological: Cranial nerves II-XII grossly intact, Neuro grossly intact Psych/Mental Status: Normal Affect, Appropriate Patient seen and examined prior to discharge. Physical assessment as noted above. Patient is stable for discharge with follow up recommendations as noted above. This patient was seen by JAHAIRA Vee under the supervision of Dr. Reed. - Physical Exam Vital Signs Temp Pulse Resp BP Pulse Ox 97.7 F L 104 H 20 H 122/98 H 94 10/21/18 08:26 10/21/18 10:41 10/21/18 10:41 10/21/18 08:26 10/21/18 08:26 Oxygen Flow Rate (L/min) 4 Oxygen Delivery Method Nasal Cannula Weight: 349 lb 10.45 oz Body Mass Index (BMI) 46.1 Intake and Output for Last 24 Hours 10/19/18 10/20/18 10/21/18 23:59 23:59 23:59 Intake Total 1210 / 1210 1070 / 1070 120 / 120 Output Total 250 / 250 200 / 200 Balance 960 / 960 1070 / 1070 -80 / -80 Microbiology Past 72 Hours 10/18/18 19:20 Respiratory Panel (PCR) - Final Mucosa - Nose RSV B Discharge Diet: Low fat/ Low Cholesterol Discharge Activity: Return to Normal Activity Call your doctor if you observe: Shortness of breath, Dizziness, Fainting spells, Chest pain Home Medications: Medications to take at Discharge Aspirin E.C. [Ecotrin] 81 mg PO DAILY@0800 02/27/17 Ibuprofen 200 mg PO Q8H PRN PRN 02/27/17 nitroglycerin 0.4 mg sublingual tablet 0.4 mg SUBLINGUAL Q5-15M PRN 01/19/18 Tamsulosin HCl [Flomax] 0.4 mg PO DAILY 02/16/18 Acapella BID [id number] 05/29/18 Ascorbic Acid [Vitamin C] 1,000 mg PO DAILY 10/18/18 Atorvastatin Calcium [Lipitor] 20 mg PO DAILY 10/18/18 Budesonide/Formoterol 160/4.5 [Symbicort 160/4.5 Mcg Inhaler (SP)] 2 puff INHALATION BID 10/18/18 Duloxetine Hcl [Cymbalta] 30 mg PO DAILY 10/18/18 Gabapentin [Neurontin] 100 mg PO DAILY PRN 10/18/18 Isosorbide Mononitrate [Imdur] 30 mg PO DAILY 10/18/18 Lisinopril-Hctz 20-12.5mg 2 tab PO DAILY 10/18/18 Multivitamins,Therapeutic [Multivitamin] 1 tablet PO DAILY 10/18/18 Albuterol Aerosols [Ventolin Aerosols] 2.5 mg INHALATION Q2H PRN PRN #120 vial.neb. 10/21/18 Ipratropium/Albuterol Sulfate [Duoneb] 3 ml INHALATION Q4H.RT #120 ampul.neb 10/21/18 predniSONE tablet See Taper PO DAILY #30 tablet 10/21/18 Following Prescrptions Were Given to Patient: Albuterol Aerosols [Ventolin Aerosols] 2.5 mg INHALATION Q2H PRN PRN #120 vial.neb. PRN Reason: SHORTNESS OF BREATH Ipratropium/Albuterol Sulfate [Duoneb] 3 ml INHALATION Q4H.RT #120 ampul.neb predniSONE tablet See Taper PO DAILY #30 tablet Primary Care Physician: Natalie Brandt [Primary Care Provider] - Please follow up with your Primary Care Physician in: 1 Week Please Follow Up With: Eddie Stovall NP-C When: As Scheduled, 11/29/18. Please Follow Up With: Colt Bundy MD When: As scheduled, 10/31/18. Disposition: Home Minutes spent on discharge:: 35 Patient Condition:: Stable Medical Necessity - Tobacco Use Smoking Status: Former smoker Tobacco Use: Cigarettes Meaningful Use Info Meaningful Use Diagnoses (Choose all that apply): None applicable <Lu Reed - Last Filed: 10/21/18 11:47> Discharge Date and Diagnosis - Secondary Discharge Diagnosis Chronic Problems (Last Reviewed 10/01/18 @ 08:21 by Tanya Cohn) Morbid obesity with BMI of 45.0-49.9, adult (Chronic) Chronic respiratory failure with hypoxia (Chronic) 2 L/min at rest and 4 L/min on exertion KIRSTIE (obstructive sleep apnea) (Chronic) BiPAP 16/10 cmH2O with a 6 L/min supplemental oxygen bleed Bronchiectasis (Chronic) Hypersomnia (Chronic) Lung nodule (Chronic) Atherosclerotic heart disease [place] coronary artery w/angina pectoris (Chronic) 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 Patient was admitted because of worsening shortness of breath and he was found to have acute exacerbation of chronic bronchiectasis which is probably triggered by respiratory syncytial virus type B. His chest x-ray showed no acute findings, pneumonia ruled out. Patient was treated with bronchodilators and IV steroids and also he needed BiPAP. His ABG revealed pH of 7.38, PCO2 of 53 and PO2 of 62. His routine blood work was unremarkable. His troponin was borderline elevated which is attributed to probable demand ischemia. EKG revealed no acute ischemic changes. With above-mentioned treatment, patient symptoms improved. Really, patient required up to 9 L of oxygen as well as BiPAP to maintain his pulse ox. With treatment, his symptoms improved and his oxygen requirement decreased. Will be able to take him down to 4 L of oxygen upon discharge. His baseline at home has been around 4-6 L of oxygen. Patient discharged home in a stable medical condition, discharged on tapering course of prednisone, continued on bronchodilators, started on DuoNeb nebulizer every 4 hours, discharged with nebulizer, plan to follow-up with pulmonology on October 31, 2018, phlegm with PCP in 1 week. - Physical Exam General: Alert, Oriented x3, Cooperative, No apparent distress. HEENT: Atraumatic, PERRLA, EOMI. Neck: Supple, No JVD, Negative Carotid Bruits, Trachea Midline, Thyroid Normal. Lungs: Diminished breath sounds bilateral, scattered rhonchi, No wheeze, No rales. Cardiovascular: Regular rate, Regular Rhythm, Normal S1, Normal S2, PMI Normal. Abdomen: Bowel Sounds Present, Soft, Non Tender, Non-Distended, No Hepato- splenomegaly. Extremities: No clubbing, No cyanosis, No edema Skin: No rashes, No breakdown Neurological: Neuro grossly intact Vital Signs are stable. This note was generated with [employer] dictation software. It may contain incorrect words, spelling, and punctuation that were not noted in checking the note before signing. - Physical Exam Vital Signs Temp Pulse Resp BP Pulse Ox 97.7 F L 111 H 20 H 122/98 H 94 10/21/18 08:26 10/21/18 11:25 10/21/18 10:41 10/21/18 08:26 10/21/18 08:26 Oxygen Flow Rate (L/min) 4 Oxygen Delivery Method Nasal Cannula Weight: 349 lb 10.45 oz Body Mass Index (BMI) 46.1 Intake and Output for Last 24 Hours 10/19/18 10/20/18 10/21/18 23:59 23:59 23:59 Intake Total 1210 / 1210 1070 / 1070 120 / 120 Output Total 250 / 250 200 / 200 Balance 960 / 960 1070 / 1070 -80 / -80 Microbiology Past 72 Hours 10/18/18 19:20 Respiratory Panel (PCR) - Final Mucosa - Nose RSV B Minutes spent on discharge:: 27 Patient Condition:: Stable Meaningful Use Info Meaningful Use Diagnoses (Choose all that apply): None applicable Code Visit Inpatient E&M: 03741 Disch Hosp
--- NOTE | 2018-10-22 16:09 | CASEMGMT ---
[facility]NS[facility] DAWN Discharge F/U Phone Call LACE: 11 Strata: 3 Discharge date: 10/21/18 Call date: 10/22/18 Call time: [id number] Duration: 3 minutes Admission dx: COPD exacerbation Pt states 'xuan rough' since discharge. Pt states has not had the energy to go get his nebulizer today and 'I don't have anybody to help me.' Pt does states that he plans to f/u with PCP tomorrow and get the nebulizer on the way there or back from there. Pt states no questions regarding discharge instructions or medications at this time. When asked about suggestions for [facility], pt states 'I wouldn't change a thing. Everybody was perfect.' Pt voices no further questions/concerns/needs at this time. SStaten JOHNSON DAWN
== END 2018-10-21 13:45 | disposition home or self-care (01) | DRG 140 ==
LOC: ED 15:03 → PCU 16:50
PROVIDERS: Family Medicine; Admitting Provider Student in an Organized Health Care Education/Training Program; Emergency Provider Emergency Medicine; Visit Provider Hospitalist
DX: J47.1 Bronchiectasis with (acute) exacerbation (principal); J20.5 Acute bronchitis due to respiratory syncytial virus; J47.0 Bronchiectasis with acute lower respiratory infection; J96.11 Chronic respiratory failure with hypoxia; Z68.42 Body mass index [BMI] 45.0-49.9, adult; E66.01 Morbid (severe) obesity due to excess calories; B97.4 Respiratory syncytial virus as the cause of diseases classified elsewhere; Z99.81 Dependence on supplemental oxygen; N40.0 Benign prostatic hyperplasia without lower urinary tract symptoms; E78.5 Hyperlipidemia, unspecified; F32.9 Major depressive disorder, single episode, unspecified; G47.33 Obstructive sleep apnea (adult) (pediatric); I24.8 Other forms of acute ischemic heart disease; I25.10 Atherosclerotic heart disease of native coronary artery without angina pectoris; Z87.891 Personal history of nicotine dependence; Z79.899 Other long term (current) drug therapy; I10 Essential (primary) hypertension; I47.2 Ventricular tachycardia
CPT/HCPCS: 36415; 36600; 71045; 80048; 82803; 83735; 84484; 85025; 87633; 93005; 94002; 94003; 94640; 94667; 94668; 94762; 97110; 97116; 97162; 97165; 97535; 99285; A4216

== ENCOUNTER 2018-12-17 11:24 | Inpatient (IN) | payer MEDICAID, SELFPAY ==
[2018-10-31 12:56] VITALS: BMI 45.1
[2018-12-17] VITALS (14 sets, daily range): BP systolic 152–180; BP diastolic 78–120; PULSE 85–102; RESP 20–24; TEMP 36.2–36.7; O2SAT 92–94; BMI 44.1; BMI 44.2; BMI 44.6
--- NOTE | 2018-12-17 11:49 | RAD_ITS ---
STUDY: X-RAY CHEST REASON FOR EXAM: Male, 63 years old. Increasing shortness of breath. TECHNIQUE: Single AP portable view of the chest. COMPARISON: Comparison is made with prior study dated October 18, 2018. FINDINGS: Stable mild increased interstitial markings at the lung bases. This may represent scarring. There is no demonstrated pleural abnormality. There is moderate cardiac enlargement. Normal mediastinum and skyler. Normal visualized pulmonary arteries. There is atherosclerotic tortuosity of the aortic arch and descending thoracic aorta. There are diffuse degenerative changes of the visualized thoracic spine. Normal visualized ribs, clavicles, and shoulders. There is no demonstrated abnormality of the visualized soft tissue structures of the upper abdomen. RAD/Chest 1 View (Portable) IMPRESSION: Stable mild increased markings at the lung bases suggest some mild scarring. Cardiomegaly. Electronically Signed: Shashi Strong MD at 12:21 EST , Service support ,
--- NOTE | 2018-12-17 11:51 | EKG12_ITS ---
Test Reason : CP Blood Pressure : / mmHG Vent. Rate : 085 BPM Atrial Rate : 085 BPM P-R Int : 156 ms QRS Dur : 104 ms QT Int : 404 ms P-R-T Axes : 045 012 016 degrees QTc Int : 480 ms Sinus rhythm with Premature atrial complexes Prolonged QT Abnormal ECG Confirmed by CHUCKY MORENO, BERTRAM ([id number]), photo editor LENKA CHONG ([id number]) on 12/19/2018 1:54:50 PM Referred By: [facility]YS Confirmed By:BERTRAM LOCKE MD
--- NOTE | 2018-12-17 11:53 | ED.VISSUMM ---
- ER Visit Summary Date of Service: 12/17/18 Chief Complaint: Shortness of breath History of Present Illness: The patient is a 63 M who presents with shortness of breath, this is been worsening over the past week. No fever or chills he has a very dry cough. No sputum production. No chest pain. No neck pain. He has a history of COPD, he is on 6 L nasal cannula at home. He stopped smoking 7 months ago. Physical Examination: He appears in some distress, his blood pressure on the monitor is 170/96 Slightly dry mucous membranes, no obvious facial deformity No C-spine tenderness supple neck. Regular rate and rhythm without any obvious murmurs He is on 6 L nasal cannula, he has end expiratory wheezing and diminished breath sounds bilaterally, he is speaking in full sentences, saturating about 92% Abdomen soft and nontender no guarding or rebound Moves all extremities without any difficulty or pain. Trace edema which he tells me is chronic Skin does not show any obvious rashes or lesions, no trauma. Alert oriented ?3 with no gross focal deficit Emergency Department Course and Treatment: She received nebulizers, IV Solu-Medrol, his cough has not changed, he has no sputum production therefore he does not meet criteria for antibiotics, he has no pneumonia on his chest x-ray. Because of his hypoxia and significant distress I will admit him. Admit stable condition Impression: COPD exacerbation This note was generated with [employer] dictation software. It may contain incorrect words, spelling, and punctuation that were not noted in review of the chart prior to signing ED Disposition - Plan for ED Patient: Referrals: Sugey Cobb,Natalie Ochoa [NON-STAFF] -
--- NOTE | 2018-12-17 11:56 | ED.DCSUM_ITS ---
- ER Visit Summary Date of Service: 12/17/18 Chief Complaint: Shortness of breath History of Present Illness: The patient is a 63 M who presents with shortness of breath, this is been worsening over the past week. No fever or chills he has a very dry cough. No sputum production. No chest pain. No neck pain. He has a history of COPD, he is on 6 L nasal cannula at home. He stopped smoking 7 months ago. Physical Examination: He appears in some distress, his blood pressure on the monitor is 170/96 Slightly dry mucous membranes, no obvious facial deformity No C-spine tenderness supple neck. Regular rate and rhythm without any obvious murmurs He is on 6 L nasal cannula, he has end expiratory wheezing and diminished breath sounds bilaterally, he is speaking in full sentences, saturating about 92% Abdomen soft and nontender no guarding or rebound Moves all extremities without any difficulty or pain. Trace edema which he tells me is chronic Skin does not show any obvious rashes or lesions, no trauma. Alert oriented ?3 with no gross focal deficit Emergency Department Course and Treatment: She received nebulizers, IV Solu- Medrol, his cough has not changed, he has no sputum production therefore he does not meet criteria for antibiotics, he has no pneumonia on his chest x-ray. Because of his hypoxia and significant distress I will admit him. Admit stable condition Impression: COPD exacerbation This note was generated with [employer] dictation software. It may contain incorrect words, spelling, and punctuation that were not noted in review of the chart prior to signing ED Disposition - Plan for ED Patient: Referrals: Sugey Cobb,Natalie Ochoa [NON-STAFF] -
[2018-12-17] MEDS: Ipratropium/Albuterol Sulfate 3 ML AMPUL.NEB INHALATION ×3 (12:23→23:11)
[2018-12-17] MEDS: Albuterol 2.5 MG/3 ML VIAL.NEB. INHALATION ×3 (12:23)
[2018-12-17 12:41] LABS: Hematocrit 44.5 % (40-54); Hemoglobin 14.8 g/dl (13.0-16.5); Mean Corp Hgb Conc 33.3 g/gl (32-36); Mean Corpuscular Hgb 31.1 pg (27.0-32.0); Mean Corpuscular Volume 93.5 fL (80-94); Platelet Count 234 K/mm3 (150-450); RBC Distribution Width CV 13.7 % (11.6-14.6); RBC Distribution Width SD 46.1 fl (35.1-43.9); Red Blood Count 4.76 M/mm3 (4.6-6.2); Scan Indicated on CBC? Y/N NO
[2018-12-17 13:00] LABS: ALB/GLOB Ratio 1.2 RATIO (0.9-2.4); AST(SGOT) 24 U/L (15-37); Alanine Aminotransfer ALT/SGPT 37 U/L (16-61); Albumin, Serum 3.6 g/dL (3.2-5.0); Alkaline Phosphatase 56 U/L (45-117); Anion Gap 7 (5-15); BUN 12 mg/dL (7-18); BUN/Creat Ratio 9.8 RATIO (10-20); Calcium,Total 8.3 mg/dL (8.5-10.1); Chloride 105 mmol/L (98-107); Creatinine, Serum 1.22 mg/dL (0.70-1.30); EST Glomerular Filtration Rate 64 mL/min (>60); Est Glom Filt Rate - Afr Amer 77 mL/min (>60); Estimated Creatinine Clearance 70.04 ml/min; Glucose 151 mg/dL (74-106); Potassium 3.2 mmol/L (3.5-5.1); Protein, Total 6.6 g/dL (6.4-8.2); Sodium Level 139 mmol/L (136-145)
[2018-12-17 13:10] LABS: BNP,B-Type NATRIURETIC PEPTIDE 361.6 pg/mL (0-100)
[2018-12-17] MEDS: MethylPREDNISolone 125 MG/2 ML Vial IV (15:07)
--- NOTE | 2018-12-17 15:37 | NURSING ---
PCU PAINTSIL ACUTE HYPOXIC RESP FAILURE
--- NOTE | 2018-12-17 16:11 | PCM.HP.STD ---
<Tanya Velázquez - Last Filed: 12/17/18 16:30> Problem List (1) Morbid obesity with BMI of 45.0-49.9, adult Status: Chronic (2) Chronic respiratory failure with hypoxia Status: Chronic Comment: 2 L/min at rest and 4 L/min on exertion (3) KIRSTIE (obstructive sleep apnea) Status: Chronic Comment: BiPAP 16/10 cmH2O with a 6 L/min supplemental oxygen bleed (4) Bronchiectasis Status: Chronic (5) Hypersomnia Status: Chronic (6) Lung nodule Status: Chronic (7) Atherosclerotic heart disease [place] coronary artery w/angina pectoris Status: Chronic Comment: FINANCIAL CENTER MANAGER Mid RCA (8) Left ventricular hypertrophy Status: Chronic (9) Premature ventricular beat Status: Chronic (10) Nicotine dependence Status: Chronic (11) Hyperlipidemia Status: Chronic (12) Hypertension Status: Chronic History of Present Illness Date of Admission: 12/17/18 Chief Complaint: Shortness of breath. The patient is a 63 year old M who presents emergency room due to increased shortness of breath. Patient states he has had increased shortness of breath over the past week which worsened over the weekend. He denies shortness of breath while lying flat. Reports shortness of breath is mostly worse with ambulation. Denies cough, fever, chills. Patient chronically wears 6 L nasal cannula continuously at home. He follows with Dr. Bundy for chronic bronchiectasis. He denies exposure to sick contacts. Patient had admission in October 2018 with COPD exacerbation secondary to RSV. His past medical history includes chronic hypoxic respiratory failure, chronic bronchiectasis, hypertension, hyperlipidemia, history of tobacco dependence with cessation 7 months ago, morbid obesity, BPH, depression, KIRSTIE. 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 RCA Left ventricular hypertrophy (Chronic) Premature ventricular beat (Chronic) Nicotine dependence (Chronic) Hyperlipidemia (Chronic) Hypertension (Chronic) Medical History: Medical History (Last Reviewed 10/31/18 @ 12:57 by Kalina Olvera) Atherosclerotic heart disease [place] coronary artery w/angina pectoris (Chronic) I25.119 FINANCIAL CENTER MANAGER Mid RCA Left ventricular hypertrophy (Chronic) I51.7 Premature ventricular beat (Chronic) I49.3 Nicotine dependence (Chronic) F17.200 Hyperlipidemia (Chronic) E78.5 Hypertension (Chronic) I10 BPH (benign prostatic hyperplasia) N40.0 COPD (chronic obstructive pulmonary disease) J44.9 GERD (gastroesophageal reflux disease) K21.9 Obstructive sleep apnea G47.33 right ankle surgery Allergies codeine Adverse Reaction (Verified 12/17/18 11:29) Other-dizzy Home Medications: Ambulatory Orders Medication Instructions Recorded Aspirin E.C. [Ecotrin] 81 mg PO DAILY@0800 02/27/17 Ibuprofen 200 mg PO Q8H PRN PRN 02/27/17 nitroglycerin 0.4 mg sublingual 0.4 mg SUBLINGUAL Q5-15M PRN 01/19/18 tablet Tamsulosin HCl [Flomax] 0.4 mg PO DAILY 02/16/18 Ascorbic Acid [Vitamin C] 1,000 mg PO DAILY 10/18/18 Budesonide/Formoterol 160/4.5 2 puff INHALATION BID 10/18/18 [Symbicort 160/4.5 Mcg Inhaler (SP)] Duloxetine Hcl [Cymbalta] 30 mg PO DAILY 10/18/18 Gabapentin [Neurontin] 100 mg PO DAILY PRN 10/18/18 Isosorbide Mononitrate [Imdur] 30 mg PO DAILY 10/18/18 Multivitamins,Therapeutic 1 tab PO DAILY 10/18/18 [Multivitamin] Albuterol Aerosols [Ventolin 2.5 mg INHALATION Q2H PRN PRN #120 10/21/18 Aerosols] vial.neb. Ergocalciferol [Vitamin D] 50,000 unit PO TH 12/17/18 Lisinopril/Hydrochlorothiazide 1 tab PO BID 12/17/18 [Lisinopril-Hctz 20-12.5 mg Tab] Metoprolol Succinate [Toprol Xl] 100 mg PO DAILY 12/17/18 Surgical History: Surgical History (Last Reviewed 10/31/18 @ 12:57 by Kalina Olvera) History of left heart catheterization Onset Date: ~02/2010 Z98.890 FINANCIAL CENTER MANAGER Mid RCA History of right knee surgery Z98.890 History of uvulopalatopharyngoplasty Z98.890 Surgical History: - - Right knee surgery, history of uvulopalatopharyngoplasty, left heart cath. Psychiatric History: No pertinent psych hx Lives: Alone Smoking Status: Former smoker Alcohol: None Drugs: None - *Family History Maternal History Items: - - Pancreatic cancer. Paternal History Items: COPD Review of Systems Constitutional: Denies: Chills, Fever, Weight Change HEENT: Denies: Head Aches, Sinus Congestion, Sinus Drainage Cardiovascular: Denies: Chest Pain, Edema, Palpitations, Syncope Respiratory: Reports: Shortness of Breath. Denies: Cough, Sputum production Gastrointestinal: Denies: Abdominal Pain, Nausea, Vomiting Genitourinary: Denies: Dysuria Musculoskeletal: Denies: Joint Pain, Joint Tenderness Skin: Denies: Rash, Wounds Neurological: Denies: Numbness, Tingling, Focal weakness Psychiatric: Reports: Depression. Denies: Anxiety, Homicidal Ideations, Suicidal Ideations Hematologic/ Lymphatic: Denies: Easy Bruising, Easy Bleeding VTE Information - Inpt Only VTE Present on Admission: No VTE Mechan Device Prophylaxis: None VTE Pharm Prophylaxis ordered?: Yes - Physical Exam General: Alert, Oriented x3, Cooperative HEENT: Atraumatic, PERRLA, EOMI, Normocephalic Neck: Supple, No JVD, Negative Carotid Bruits Lungs: Clear to auscultation, Diminished Cardiovascular: Regular rate, Regular Rhythm, Normal S1, Normal S2, No murmurs Abdomen: Bowel Sounds Present, Soft, Non Tender, Non-Distended, Obese Extremities: No clubbing, No cyanosis, No edema Skin: No rashes, No breakdown Musculoskeletal: No Tenderness to Palpation of Joints or Extremities Neurological: Cranial nerves II-XII grossly intact, Neuro grossly intact Psych/Mental Status: Normal Affect, Appropriate Vital Signs Temp Pulse Resp BP Pulse Ox 98.0 F 89 20 H 152/78 H 92 12/17/18 12:16 12/17/18 15:10 12/17/18 14:17 12/17/18 15:10 12/17/18 15:10 Oxygen Flow Rate (L/min) 6 Oxygen Delivery Method Nasal Cannula Weight: 335 lb Body Mass Index (BMI) 44.1 Laboratory Tests Past 24 Hrs 12/17/18 12/17/18 12/17/18 12:15 12:15 12:15 WBC 9.0 RBC 4.76 Hgb 14.8 Hct 44.5 MCV 93.5 MCH 31.1 MCHC 33.3 RDW 13.7 RDW Differential 46.1 H Plt Count 234 MPV 11.0 Sodium 139 Potassium 3.2 L Chloride 105 Carbon Dioxide 27.0 Anion Gap 7 BUN 12 Creatinine 1.22 Estim Creat Clear Calc 70.04 Est GFR (MDRD) Af Amer 77 Est GFR (MDRD) Non-Af 64 BUN/Creatinine Ratio 9.8 L Glucose 151 H Calcium 8.3 L Total Bilirubin 0.70 AST 24 ALT 37 Alkaline Phosphatase 56 Troponin I 0.054 H B-Natriuretic Peptide 361.6 H Total Protein 6.6 Albumin 3.6 Globulin 3.0 Albumin/Globulin Ratio 1.2 Assessment/Plan 1. Exacerbation of chronic bronchiectasis with chronic hypoxic respiratory failure- pulmonary function test January 2018 showed mild restrictive ventilatory impairment. No reported history of COPD. Patient reports he has been chronically wearing 6 L nasal cannula continuously at home. Follows with Dr. Bundy. Oxygen 92% on 6 L. Continue supplement oxygen to maintain O2 at or above 90%. Echocardiogram completed 08/13/2018 due to ongoing dyspnea on exertion. EF 55%, stage I diastolic dysfunction, pulmonary artery systolic pressure 32 mmHg. Acapella twice daily. Albuterol and DuoNeb aerosols. IV Solu-Medrol. BIPAP QHS. Obtain respiratory panel. Chest x-ray on admission without acute process. Afebrile. No leukocytosis. 2. Abnormal troponin, underlying CAD-cath in January 2018 showed known occluded right coronary artery with [id number] collaterals. Moderate disease in the circumflex artery. Follows with Dr. Pena. Continue aspirin, statin, isosorbide. Patient's enzymes elevated during admission in October as well suspect demand ischemia secondary to #1. Patient denies chest pain. 3. Hypertension-continue home HCTZ/lisinopril, isosorbide, metoprolol. 4. Hyperlipidemia-continue statin. 5. History of nicotine dependence-reports he is 7 months tobacco free. Encouraged continued cessation. 6. Morbid obesity-encouraged diet and lifestyle modifications. 7. BPH-continue home Flomax regimen. 8. Depression-continue home Cymbalta regimen. 9. Obstructive sleep apnea-continue BiPAP nightly. Noncompliance. DVT prophylaxis- Lovenox sc. This patient was seen by JAHAIRA Vee under the supervision of Dr. Carrion. <Saira Carrion - Last Filed: 12/17/18 23:04> History of Present Illness The patient is a 63 year old M [] Past Medical History Medical History: Medical History (Last Reviewed 10/31/18 @ 12:57 by Kalina Olvera) Atherosclerotic heart disease [place] coronary artery w/angina pectoris (Chronic) I25.119 FINANCIAL CENTER MANAGER Mid RCA Left ventricular hypertrophy (Chronic) I51.7 Premature ventricular beat (Chronic) I49.3 Nicotine dependence (Chronic) F17.200 Hyperlipidemia (Chronic) E78.5 Hypertension (Chronic) I10 BPH (benign prostatic hyperplasia) N40.0 COPD (chronic obstructive pulmonary disease) J44.9 GERD (gastroesophageal reflux disease) K21.9 Obstructive sleep apnea G47.33 right ankle surgery Allergies codeine Adverse Reaction (Verified 12/17/18 11:29) Other-dizzy Surgical History: Surgical History (Last Reviewed 10/31/18 @ 12:57 by Kalina Olvera) History of left heart catheterization Onset Date: ~02/2010 Z98.890 FINANCIAL CENTER MANAGER Mid RCA History of right knee surgery Z98.890 History of uvulopalatopharyngoplasty Z98.890 - Physical Exam Vital Signs Temp Pulse Resp BP Pulse Ox 97.3 F L 96 22 H 163/105 H 92 12/17/18 16:46 12/17/18 19:20 12/17/18 19:20 12/17/18 16:46 12/17/18 16:46 Oxygen Flow Rate (L/min) 6 Oxygen Delivery Method Nasal Cannula Weight: 153.6 kg Body Mass Index (BMI) 44.6 Intake and Output for Last 24 Hours 12/15/18 12/16/18 12/17/18 23:59 23:59 23:59 Intake Total 400 / 400 Balance 400 / 400 Laboratory Tests Past 24 Hrs 02/04/19 02/04/19 02/04/19 12:15 12:15 12:15 WBC 9.0 RBC 4.76 Hgb 14.8 Hct 44.5 MCV 93.5 MCH 31.1 MCHC 33.3 RDW 13.7 RDW Differential 46.1 H Plt Count 234 MPV 11.0 Sodium 139 Potassium 3.2 L Chloride 105 Carbon Dioxide 27.0 Anion Gap 7 BUN 12 Creatinine 1.22 Estim Creat Clear Calc 70.04 Est GFR (MDRD) Af Amer 77 Est GFR (MDRD) Non-Af 64 BUN/Creatinine Ratio 9.8 L Glucose 151 H Calcium 8.3 L Total Bilirubin 0.70 AST 24 ALT 37 Alkaline Phosphatase 56 Troponin I 0.054 H B-Natriuretic Peptide 361.6 H Total Protein 6.6 Albumin 3.6 Globulin 3.0 Albumin/Globulin Ratio 1.2 Assessment/Plan This patient was seen in conjunction with Tanya Velázquez BEHAVIORAL INTERVENTION SPECIALIST. I have independently interviewed and examined the patient and reviewed pertinent historical, laboratory, and other data. Please refer to her note for patient's presentation, findings, and recommendations. 62-year-old male with past medical history of morbid obesity, chronic respiratory failure on 6 L of oxygen at home, KIRSTIE, on BiPAP, chronic bronchiectasis who comes in with complaints of shortness of breath that has worsened over the past 1 week. Patient denied any fever or chills. PMHx: as discussed per HPI PSHX: History of right knee surgery, history of uvulopalatopharyngoplasty, history of left heart cath FHX: Pancreatic cancer in mother, COPD in father SHX: Recently quit smoking, denies any use of alcohol or illicit drugs ROS: Per HPI except for ongoing fatigue, malaise, nasal congestion Physical Exam: Vital show temperature of 98.0 F, heart rate is 86, blood pressure of 152/78, respiratory rate was 24, SpO2 92% on 6L Gen: Looks in some discomfort, on 6 L of oxygen, not pale, not jaundiced, alert oriented x3 CVS:HS I +II, regular, tachycardic, no murmurs RESP: Diminished at lung bases, no wheezes heard GI: Bowel sounds present, soft, nontender, no palpable organs EXT:Bipedal edema +1-2, woody hard Labs reviewed -CBCD is unremarkable, BMP is remarkable for hypokalemia ASSESSMENT: 1. Acute exacerbation of chronic brochiectasis with chronic hypoxic respiratory failure 2. Elevated troponins, history of CAD, likely secondary to demand ischemia 3. Hypertension 4. Hyperlipidemia 5. Morbid Obesity 6. BPH 7. Depression 8. KIRSTIE 9. History of nicotine dependence Plan: Admit to PCU, continue on chronic oxygen therapy, breathing treatments, follow-up in respiratory panel Continue rest of home medications Possible DC in 1-2 days if improved Code Visit OBSV E&M: 65802 Initial observation care L3
--- NOTE | 2018-12-17 16:17 | HP.PCM_ITS ---
<Tanya Velázquez - Last Filed: 12/17/18 16:30> Problem List (1) Morbid obesity with BMI of 45.0-49.9, adult Status: Chronic (2) Chronic respiratory failure with hypoxia Status: Chronic Comment: 2 L/min at rest and 4 L/min on exertion (3) KIRSTIE (obstructive sleep apnea) Status: Chronic Comment: BiPAP 16/10 cmH2O with a 6 L/min supplemental oxygen bleed (4) Bronchiectasis Status: Chronic (5) Hypersomnia Status: Chronic (6) Lung nodule Status: Chronic (7) Atherosclerotic heart disease [place] coronary artery w/angina pectoris Status: Chronic Comment: EDUCATIONAL ADVISOR Mid RCA (8) Left ventricular hypertrophy Status: Chronic (9) Premature ventricular beat Status: Chronic (10) Nicotine dependence Status: Chronic (11) Hyperlipidemia Status: Chronic (12) Hypertension Status: Chronic History of Present Illness Date of Admission: 12/17/18 Chief Complaint: Shortness of breath. The patient is a 63 year old M who presents emergency room due to increased shortness of breath. Patient states he has had increased shortness of breath over the past week which worsened over the weekend. He denies shortness of br eath while lying flat. Reports shortness of breath is mostly worse with ambulation. Denies cough, fever, chills. Patient chronically wears 6 L nasal cannula continuously at home. He follows with Dr. Bundy for chronic bronchiectasis. He denies exposure to sick contacts. Patient had admission in October 2018 with COPD exacerbation secondary to RSV. His past medical history includes chronic hypoxic respiratory failure, chronic bronchiectasis, hypertension, hyperlipidemia, history of tobacco dependence with cessation 7 months ago, morbid obesity, BPH, depression, KIRSTIE. Past Medical History Past Medical History (Chronic Problems): Chronic Problems (Last Reviewed 10/31/18 @ 12:57 by Kalina Olvera) Morbid obesity with BMI of 45.0-49.9, adult (Chronic) Chronic respiratory failure with hypoxia (Chronic) 2 L/min at rest and 4 L/min on exertion KIRSTIE (obstructive sleep apnea) (Chronic) BiPAP 16/10 cmH2O with a 6 L/min supplemental oxygen bleed Bronchiectasis (Chronic) Hypersomnia (Chronic) Lung nodule (Chronic) Atherosclerotic heart disease [place] coronary artery w/angina pectoris (Chronic) EDUCATIONAL ADVISOR Mid RCA Left ventricular hypertrophy (Chronic) Premature ventricular beat (Chronic) Nicotine dependence (Chronic) Hyperlipidemia (Chronic) Hypertension (Chronic) Medical History: Medical History (Last Reviewed 10/31/18 @ 12:57 by Kalina Olvera) Atherosclerotic heart disease [place] coronary artery w/angina pectoris (Chronic) I25.119 EDUCATIONAL ADVISOR Mid RCA Left ventricular hypertrophy (Chronic) I51.7 Premature ventricular beat (Chronic) I49.3 Nicotine dependence (Chronic) F17.200 Hyperlipidemia (Chronic) E78.5 Hypertension (Chronic) I10 BPH (benign prostatic hyperplasia) N40.0 COPD (chronic obstructive pulmonary disease) J44.9 GERD (gastroesophageal reflux disease) K21.9 Obstructive sleep apnea G47.33 right ankle surgery Allergies codeine Adverse Reaction (Verified 12/17/18 11:29) Other-dizzy Home Medications: Ambulatory Orders Medication Instructions Recorded Aspirin E.C. [Ecotrin] 81 mg PO DAILY@0800 02/27/17 Ibuprofen 200 mg PO Q8H PRN PRN 02/27/17 nitroglycerin 0.4 mg sublingual 0.4 mg SUBLINGUAL Q5-15M PRN 01/19/18 tablet Tamsulosin HCl [Flomax] 0.4 mg PO DAILY 02/16/18 Ascorbic Acid [Vitamin C] 1,000 mg PO DAILY 10/18/18 Budesonide/Formoterol 160/4.5 2 puff INHALATION BID 10/18/18 [Symbicort 160/4.5 Mcg Inhaler (SP)] Duloxetine Hcl [Cymbalta] 30 mg PO DAILY 10/18/18 Gabapentin [Neurontin] 100 mg PO DAILY PRN 10/18/18 Isosorbide Mononitrate [Imdur] 30 mg PO DAILY 10/18/18 Multivitamins,Therapeutic 1 tab PO DAILY 10/18/18 [Multivitamin] Albuterol Aerosols [Ventolin 2.5 mg INHALATION Q2H PRN PRN #120 10/21/18 Aerosols] vial.neb. Ergocalciferol [Vitamin D] 50,000 unit PO TH 12/17/18 Lisinopril/Hydrochlorothiazide 1 tab PO BID 12/17/18 [Lisinopril-Hctz 20-12.5 mg Tab] Metoprolol Succinate [Toprol Xl] 100 mg PO DAILY 12/17/18 Surgical History: Surgical History (Last Reviewed 10/31/18 @ 12:57 by Kalina Olvera) History of left heart catheterization Onset Date: ~02/2010 Z98.890 EDUCATIONAL ADVISOR Mid RCA History of right knee surgery Z98.890 History of uvulopalatopharyngoplasty Z98.890 Surgical History: - - Right knee surgery, history of uvulopalatopharyngoplasty, left heart cath. Psychiatric History: No pertinent psych hx Lives: Alone Smoking Status: Former smoker Alcohol: None Drugs: None - *Family History Maternal History Items: - - Pancreatic cancer. Paternal History Items: COPD Review of Systems Constitutional: Denies: Chills, Fever, Weight Change HEENT: Denies: Head Aches, Sinus Congestion, Sinus Drainage Cardiovascular: Denies: Chest Pain, Edema, Palpitations, Syncope Respiratory: Reports: Shortness of Breath. Denies: Cough, Sputum production Gastrointestinal: Denies: Abdominal Pain, Nausea, Vomiting Genitourinary: Denies: Dysuria Musculoskeletal: Denies: Joint Pain, Joint Tenderness Skin: Denies: Rash, Wounds Neurological: Denies: Numbness, Tingling, Focal weakness Psychiatric: Reports: Depression. Denies: Anxiety, Homicidal Ideations, Suicidal Ideations Hematologic/ Lymphatic: Denies: Easy Bruising, Easy Bleeding VTE Information - Inpt Only VTE Present on Admission: No VTE Mechan Device Prophylaxis: None VTE Pharm Prophylaxis ordered?: Yes - Physical Exam General: Alert, Oriented x3, Cooperative HEENT: Atraumatic, PERRLA, EOMI, Normocephalic Neck: Supple, No JVD, Negative Carotid Bruits Lungs: Clear to auscultation, Diminished Cardiovascular: Regular rate, Regular Rhythm, Normal S1, Normal S2, No murmurs Abdomen: Bowel Sounds Present, Soft, Non Tender, Non-Distended, Obese Extremities: No clubbing, No cyanosis, No edema Skin: No rashes, No breakdown Musculoskeletal: No Tenderness to Palpation of Joints or Extremities Neurological: Cranial nerves II-XII grossly intact, Neuro grossly intact Psych/Mental Status: Normal Affect, Appropriate Vital Signs Temp Pulse Resp BP Pulse Ox 98.0 F 89 20 H 152/78 H 92 12/17/18 12:16 12/17/18 15:10 12/17/18 14:17 12/17/18 15:10 12/17/18 15:10 Oxygen Flow Rate (L/min) 6 Oxygen Delivery Method Nasal Cannula Weight: 335 lb Body Mass Index (BMI) 44.1 Laboratory Tests Past 24 Hrs 12/17/18 12/17/18 12/17/18 12:15 12:15 12:15 WBC 9.0 RBC 4.76 Hgb 14.8 Hct 44.5 MCV 93.5 MCH 31.1 MCHC 33.3 RDW 13.7 RDW Differential 46.1 H Plt Count 234 MPV 11.0 Sodium 139 Potassium 3.2 L Chloride 105 Carbon Dioxide 27.0 Anion Gap 7 BUN 12 Creatinine 1.22 Estim Creat Clear Calc 70.04 Est GFR (MDRD) Af Amer 77 Est GFR (MDRD) Non-Af 64 BUN/Creatinine Ratio 9.8 L Glucose 151 H Calcium 8.3 L Total Bilirubin 0.70 AST 24 ALT 37 Alkaline Phosphatase 56 Troponin I 0.054 H B-Natriuretic Peptide 361.6 H Total Protein 6.6 Albumin 3.6 Globulin 3.0 Albumin/Globulin Ratio 1.2 Assessment/Plan 1. Exacerbation of chronic bronchiectasis with chronic hypoxic respiratory failure- pulmonary function test January 2018 showed mild restrictive ventilatory impairment. No reported history of COPD. Patient reports he has been chronically wearing 6 L nasal cannula continuously at home. Follows with Dr. Bundy. Oxygen 92% on 6 L. Continue supplement oxygen to maintain O2 at or above 90%. Echocardiogram completed 08/13/2018 due to ongoing dyspnea on exertion. EF 55%, stage I diastolic dysfunction, pulmonary artery systolic pressure 32 mmHg. Acapella twice daily. Albuterol and DuoNeb aerosols. IV Solu-Medrol. BIPAP QHS. Obtain respiratory panel. Chest x-ray on admission without acute process. Afebrile. No leukocytosis. 2. Abnormal troponin, underlying CAD-cath in January 2018 showed known occluded right coronary artery with [id number] collaterals. Moderate disease in the circumflex artery. Follows with Dr. Pena. Continue aspirin, statin, isosorbide. Patient's enzymes elevated during admission in October as well suspect demand ischemia secondary to #1. Patient denies chest pain. 3. Hypertension-continue home HCTZ/lisinopril, isosorbide, metoprolol. 4. Hyperlipidemia-continue statin. 5. History of nicotine dependence-reports he is 7 months tobacco free. Encouraged continued cessation. 6. Morbid obesity-encouraged diet and lifestyle modifications. 7. BPH-continue home Flomax regimen. 8. Depression-continue home Cymbalta regimen. 9. Obstructive sleep apnea-continue BiPAP nightly. Noncompliance. DVT prophylaxis- Lovenox sc. This patient was seen by JAHAIRA Vee under the supervision of Dr. Carrion. <Saira Carrion - Last Filed: 12/17/18 23:04> History of Present Illness The patient is a 63 year old M [] Past Medical History Medical History: Medical History (Last Reviewed 10/31/18 @ 12:57 by Kalina Olvera) Atherosclerotic heart disease [place] coronary artery w/angina pectoris (Chronic) I25.119 EDUCATIONAL ADVISOR Mid RCA Left ventricular hypertrophy (Chronic) I51.7 Premature ventricular beat (Chronic) I49.3 Nicotine dependence (Chronic) F17.200 Hyperlipidemia (Chronic) E78.5 Hypertension (Chronic) I10 BPH (benign prostatic hyperplasia) N40.0 COPD (chronic obstructive pulmonary disease) J44.9 GERD (gastroesophageal reflux disease) K21.9 Obstructive sleep apnea G47.33 right ankle surgery Allergies codeine Adverse Reaction (Verified 12/17/18 11:29) Other-dizzy Surgical History: Surgical History (Last Reviewed 10/31/18 @ 12:57 by Kalina Olvera) History of left heart catheterization Onset Date: ~02/2010 Z98.890 EDUCATIONAL ADVISOR Mid RCA History of right knee surgery Z98.890 History of uvulopalatopharyngoplasty Z98.890 - Physical Exam Vital Signs Temp Pulse Resp BP Pulse Ox 97.3 F L 96 22 H 163/105 H 92 12/17/18 16:46 12/17/18 19:20 12/17/18 19:20 12/17/18 16:46 12/17/18 16:46 Oxygen Flow Rate (L/min) 6 Oxygen Delivery Method Nasal Cannula Weight: 153.6 kg Body Mass Index (BMI) 44.6 Intake and Output for Last 24 Hours 12/15/18 12/16/18 12/17/18 23:59 23:59 23:59 Intake Total 400 / 400 Balance 400 / 400 Laboratory Tests Past 24 Hrs 12/17/18 12/17/18 12/17/18 12:15 12:15 12:15 WBC 9.0 RBC 4.76 Hgb 14.8 Hct 44.5 MCV 93.5 MCH 31.1 MCHC 33.3 RDW 13.7 RDW Differential 46.1 H Plt Count 234 MPV 11.0 Sodium 139 Potassium 3.2 L Chloride 105 Carbon Dioxide 27.0 Anion Gap 7 BUN 12 Creatinine 1.22 Estim Creat Clear Calc 70.04 Est GFR (MDRD) Af Amer 77 Est GFR (MDRD) Non-Af 64 BUN/Creatinine Ratio 9.8 L Glucose 151 H Calcium 8.3 L Total Bilirubin 0.70 AST 24 ALT 37 Alkaline Phosphatase 56 Troponin I 0.054 H B-Natriuretic Peptide 361.6 H Total Protein 6.6 Albumin 3.6 Globulin 3.0 Albumin/Globulin Ratio 1.2 Assessment/Plan This patient was seen in conjunction with Tanya Velázquez FREIGHT RATE CLERK. I have independently interviewed and examined the patient and reviewed pertinent historical, laboratory, and other data. Please refer to her note for patient's presentation, findings, and recommendations. 62-year-old male with past medical history of morbid obesity, chronic respiratory failure on 6 L of oxygen at home, KIRSTIE, on BiPAP, chronic bronchiectasis who comes in with complaints of shortness of breath that has worsened over the past 1 week. Patient denied any fever or chills. PMHx: as discussed per HPI PSHX: History of right knee surgery, history of uvulopalatopharyngoplasty, history of left heart cath FHX: Pancreatic cancer in mother, COPD in father SHX: Recently quit smoking, denies any use of alcohol or illicit drugs ROS: Per HPI except for ongoing fatigue, malaise, nasal congestion Physical Exam: Vital show temperature of 98.0 F, heart rate is 86, blood pressure of 152/78, respiratory rate was 24, SpO2 92% on 6L Gen: Looks in some discomfort, on 6 L of oxygen, not pale, not jaundiced, alert oriented x3 CVS:HS I +II, regular, tachycardic, no murmurs RESP: Diminished at lung bases, no wheezes heard GI: Bowel sounds present, soft, nontender, no palpable organs EXT:Bipedal edema +1-2, woody hard Labs reviewed -CBCD is unremarkable, BMP is remarkable for hypokalemia ASSESSMENT: 1. Acute exacerbation of chronic brochiectasis with chronic hypoxic respiratory failure 2. Elevated troponins, history of CAD, likely secondary to demand ischemia 3. Hypertension 4. Hyperlipidemia 5. Morbid Obesity 6. BPH 7. Depression 8. KIRSTIE 9. History of nicotine dependence Plan: Admit to PCU, continue on chronic oxygen therapy, breathing treatments, follow- up in respiratory panel Continue rest of home medications Possible DC in 1-2 days if improved Code Visit OBSV E&M: 10860 Initial observation care L3
[2018-12-17] MEDS: hydroCHLOROthiazide 12.5mg 12.5 MG PO (22:37)
[2018-12-17] MEDS: Acetaminophen 325 MG Tablet 650 MG PO (22:39)
[2018-12-17] MEDS: Lisinopril 20 MG Tablet PO (22:39)
[2018-12-17] MEDS: Gabapentin 100 MG Capsule PO (22:39)
[2018-12-17] MEDS: 0.9% NaCl Peripheral Flush Adult/Peds IV (22:45)
--- NOTE | 2018-12-17 23:16 | CPS ---
pt has no loose secretions.
[2018-12-18] VITALS (19 sets, daily range): BP systolic 146–212; BP diastolic 63–100; PULSE 88–100; RESP 17–22; TEMP 36.5–36.8; O2SAT 93–97
[2018-12-18] MEDS: Ipratropium/Albuterol Sulfate 3 ML AMPUL.NEB INHALATION ×5 (03:05→23:08)
[2018-12-18] MEDS: Enoxaparin 40 MG/0.4 ML Syringe SC (05:27)
[2018-12-18] MEDS: 0.9% NaCl Peripheral Flush Adult/Peds IV ×4 (05:27→22:31)
[2018-12-18] MEDS: hydroCHLOROthiazide 12.5mg 12.5 MG PO ×2 (09:04→22:26)
[2018-12-18] MEDS: Ascorbic Acid 500 MG Tablet 1000 MG PO (09:04)
[2018-12-18] MEDS: Tamsulosin HCl 0.4 MG Capsule PO (09:04)
[2018-12-18] MEDS: Metoprolol(XL)Succ 100 MG Tablet PO (09:04)
[2018-12-18] MEDS: Lisinopril 20 MG Tablet PO ×2 (09:04→22:27)
[2018-12-18] MEDS: Aspirin E.C. 81 MG Tablet PO (09:04)
[2018-12-18] MEDS: guaiFENesin 1,200 MG Tablet 1200 MG PO ×2 (09:05→22:26)
[2018-12-18] MEDS: Isosorbide Mononitrate 30 MG Tablet PO (09:05)
[2018-12-18] MEDS: Multivitamins,Therapeutic Tablet 1 TABLET PO (09:05)
[2018-12-18] MEDS: DULoxetine Hcl 30 MG Capsule PO (09:05)
[2018-12-18] MEDS: Acetaminophen 325 MG Tablet 650 MG PO ×2 (13:03→22:27)
--- NOTE | 2018-12-18 13:55 | CASEMGMT ---
Addendum entered by Diann Patiño 12/18/18 15:04: Patient has home O2 5-6L and a cpap machine from [employer]. Diann CARPENTER Original Note: Assessment- SW met with patient and introduce self and role at [facility]. Living situation- Patient lives alone in a 2 story home with 2 entry steps. PCP: Libby DOYLE at [facility] Specialists: Dr Pena for Cardiology and Dr Bundy for Pulmonary Pharmacy: [facility] D[facility]: [facility] ADL's/IADL's: Patient is independent with all activities of daily living. Past SNF/rehab: None Past HH: None LW: Yes, but not on file POA: Yes, but not on file. Patient's daughter, Dunia is his Healthcare POA Plan: Patient plans on returning home at d/c. He said his daughter is working on getting him into assisted living. She thinks he needs someone to keep an eye on him. Diann CHAIDEZ IN TUBE CONVERSION TECHNICIAN
--- NOTE | 2018-12-18 15:18 | PCM.PROGNOTE ---
<Tanya Velázquez - Last Filed: 12/18/18 15:22> Subjective: Patient seen and examined. Does not feel breathing is yet improving. Informed patient it can take 24-48 hours on steroids before significant improvement. He denies cough, fever, chills. - Physical Exam General: Alert, Oriented x3, Cooperative HEENT: Atraumatic, PERRLA, EOMI, Normocephalic Neck: Supple, No JVD, Negative Carotid Bruits Lungs: Clear to auscultation, Diminished Cardiovascular: Regular rate, Regular Rhythm, Normal S1, Normal S2, No murmurs Abdomen: Bowel Sounds Present, Soft, Non Tender, Non-Distended, Obese Extremities: No clubbing, No cyanosis, No edema, Capillary Refill Less than 3 Seconds Skin: No rashes, No breakdown Musculoskeletal: No Tenderness to Palpation of Joints or Extremities Neurological: Cranial nerves II-XII grossly intact, Neuro grossly intact Psych/Mental Status: Normal Affect, Appropriate Vital Signs Temp Pulse Resp BP Pulse Ox 98.2 F 89 18 147/63 H 95 12/18/18 10:26 12/18/18 10:59 12/18/18 10:26 12/18/18 10:26 12/18/18 10:26 Oxygen Flow Rate (L/min) 6 Oxygen Delivery Method Nasal Cannula Weight: 338 lb 10.08 oz Body Mass Index (BMI) 44.6 Intake and Output for Last 24 Hours 12/16/18 12/17/18 12/18/18 23:59 23:59 23:59 Intake Total 760 / 760 1100 / 1100 Output Total 975 / 975 Balance 760 / 760 125 / 125 Microbiology Past 72 Hours 12/17/18 19:30 Respiratory Panel (PCR) - Final Mucosa - Nose Laboratory Tests Past 24 Hrs 12/18/18 12/18/18 12/18/18 00:02 02:40 05:35 Troponin I 0.035 0.047 H 0.055 H Medical Necessity - Tobacco Use Smoking Status: Former smoker Tobacco Use: Cigarettes Assessment/Plan 1. Exacerbation of chronic bronchiectasis with chronic hypoxic respiratory failure- pulmonary function test January 2018 showed mild restrictive ventilatory impairment. No reported history of COPD. Patient reports he has been chronically wearing 6 L nasal cannula continuously at home. Follows with Dr. Bundy. Oxygen 92% on 6 L. Continue supplement oxygen to maintain O2 at or above 90%. Echocardiogram completed 08/13/2018 due to ongoing dyspnea on exertion. EF 55%, stage I diastolic dysfunction, pulmonary artery systolic pressure 32 mmHg. Acapella twice daily. Albuterol and DuoNeb aerosols. IV Solu-Medrol. BIPAP QHS. Respiratory panel negative. Chest x-ray on admission without acute process. Afebrile. No leukocytosis. 2. Abnormal troponin, underlying CAD-cath in January 2018 showed known occluded right coronary artery with [id number] collaterals. Moderate disease in the circumflex artery. Follows with Dr. Pena. Continue aspirin, statin, isosorbide. Patient's enzymes elevated during admission in October as well suspect demand ischemia secondary to #1. Patient denies chest pain. 3. Hypertension-continue home HCTZ/lisinopril, isosorbide, metoprolol. 4. Hyperlipidemia-continue statin. 5. History of nicotine dependence-reports he is 7 months tobacco free. Encouraged continued cessation. 6. Morbid obesity-encouraged diet and lifestyle modifications. 7. BPH-continue home Flomax regimen. 8. Depression-continue home Cymbalta regimen. 9. Obstructive sleep apnea-continue BiPAP nightly. Noncompliance. DVT prophylaxis- Lovenox sc. This patient was seen by JAHAIRA Vee under the supervision of Dr. Guadalupe. <Mata Guadalupe F - Last Filed: 12/18/18 17:59> - Physical Exam Vital Signs Temp Pulse Resp BP Pulse Ox 97.8 F 98 18 161/88 H 96 12/18/18 17:26 12/18/18 17:26 12/18/18 17:26 12/18/18 17:26 12/18/18 17:26 Oxygen Flow Rate (L/min) 2 Oxygen Delivery Method Bi-pap Weight: 338 lb 10.08 oz Body Mass Index (BMI) 44.6 Intake and Output for Last 24 Hours 12/16/18 12/17/18 12/18/18 23:59 23:59 23:59 Intake Total 760 / 760 1100 / 1100 Output Total 975 / 975 Balance 760 / 760 125 / 125 Microbiology Past 72 Hours 12/17/18 19:30 Respiratory Panel (PCR) - Final Mucosa - Nose Laboratory Tests Past 24 Hrs 12/18/18 12/18/1819 00:02 02:40 05:35 Troponin I 0.035 0.047 H 0.055 H Code Visit Addendum: Dr. Guadalupe I personally examined the patient and reviewed the chart. I agree with the above. 63-year-old male presenting with shortness of breath for over a week. He denies any orthopnea but has seen pulmonology in the past for chronic bronchiectasis PFTs that showed large airway disease and was a reversible as well as a slight decrease in his diffusion capacity. He was currently admitted in October 2018 with a COPD exacerbation secondary to RSV. He does state that he is feeling a little bit better today than he did when he came in he is breathing a little bit easier. We will continue with IV steroids as well as his home inhalers and BiPAP at night. His abnormal troponin is likely secondary to demand ischemia given his respiratory status and his elevated blood pressure this morning. His troponins are within his normal range since October. Inpatient E&M: 53253 Subs Hosp L2
[2018-12-18] MEDS: hydrALAZINE 20 MG/ML Vial 10 MG IV (16:37)
[2018-12-18] MEDS: Ibuprofen 200 MG Tablet PO (16:37)
[2018-12-18] MEDS: Gabapentin 100 MG Capsule PO (22:28)
[2018-12-19] VITALS (10 sets, daily range): BP systolic 141–147; BP diastolic 56–96; PULSE 81–99; RESP 18–20; TEMP 36.3–36.6; O2SAT 93–97
[2018-12-19] MEDS: Ipratropium/Albuterol Sulfate 3 ML AMPUL.NEB INHALATION ×3 (02:40→10:57)
[2018-12-19] MEDS: 0.9% NaCl Peripheral Flush Adult/Peds IV (05:52)
[2018-12-19] MEDS: Enoxaparin 40 MG/0.4 ML Syringe SC (05:53)
[2018-12-19 05:54] LABS: Anion Gap 10 (5-15); BUN 20 mg/dL (7-18); BUN/Creat Ratio 15.6 RATIO (10-20); Calcium,Total 8.5 mg/dL (8.5-10.1); Chloride 103 mmol/L (98-107); Creatinine, Serum 1.28 mg/dL (0.70-1.30); EST Glomerular Filtration Rate 60 mL/min (>60); Est Glom Filt Rate - Afr Amer 73 mL/min (>60); Estimated Creatinine Clearance 66.76 ml/min; Glucose 226 mg/dL (74-106); Potassium 3.8 mmol/L (3.5-5.1); Sodium Level 140 mmol/L (136-145)
[2018-12-19] MEDS: Acetaminophen 325 MG Tablet 650 MG PO (07:54)
[2018-12-19] MEDS: Ascorbic Acid 500 MG Tablet 1000 MG PO (07:59)
[2018-12-19] MEDS: Metoprolol(XL)Succ 100 MG Tablet PO (07:59)
[2018-12-19] MEDS: Aspirin E.C. 81 MG Tablet PO (08:00)
[2018-12-19] MEDS: Multivitamins,Therapeutic Tablet 1 TABLET PO (08:00)
[2018-12-19] MEDS: Lisinopril 20 MG Tablet PO (08:00)
[2018-12-19] MEDS: guaiFENesin 1,200 MG Tablet 1200 MG PO (08:00)
[2018-12-19] MEDS: Isosorbide Mononitrate 30 MG Tablet PO (08:00)
[2018-12-19] MEDS: hydroCHLOROthiazide 12.5mg 12.5 MG PO (08:00)
[2018-12-19] MEDS: Tamsulosin HCl 0.4 MG Capsule PO (08:00)
[2018-12-19] MEDS: DULoxetine Hcl 30 MG Capsule PO (08:03)
--- NOTE | 2018-12-19 11:57 | DCINST_ITS ---
You will use the following diet at home:: Calorie/Carbohydrate Controlled (specify 1200, 1400, etc), Cardiac Discharge Activity: Return to Normal Activity Call your doctor if you observe: Fever of 101 or Higher, Shortness of breath, Dizziness, Fainting spells, Chest pain Allergies/Adverse Reactions: Allergies codeine Adverse Reaction (Verified 12/17/18 11:29) Other-dizzy Medications to take at Discharge Aspirin E.C. [Ecotrin] 81 mg PO DAILY@0800 02/27/17 Ibuprofen 200 mg PO Q8H PRN PRN 02/27/17 nitroglycerin 0.4 mg sublingual tablet 0.4 mg SUBLINGUAL Q5-15M PRN 01/19/18 Tamsulosin HCl [Flomax] 0.4 mg PO DAILY 02/16/18 Ascorbic Acid [Vitamin C] 1,000 mg PO DAILY 10/18/18 Budesonide/Formoterol 160/4.5 [Symbicort 160/4.5 Mcg Inhaler (SP)] 2 puff INHALATION BID 10/18/18 Duloxetine Hcl [Cymbalta] 30 mg PO DAILY 10/18/18 Gabapentin [Neurontin] 100 mg PO DAILY PRN 10/18/18 Isosorbide Mononitrate [Imdur] 30 mg PO DAILY 10/18/18 Multivitamins,Therapeutic [Multivitamin] 1 tab PO DAILY 10/18/18 Albuterol Aerosols [Ventolin Aerosols] 2.5 mg INHALATION Q2H PRN PRN #120 vial.neb. 10/21/18 Ergocalciferol [Vitamin D] 50,000 unit PO TH 12/17/18 Lisinopril/Hydrochlorothiazide [Lisinopril-Hctz 20-12.5 mg Tab] 1 tab PO BID 12/17/18 Metoprolol Succinate [Toprol Xl] 100 mg PO DAILY 12/17/18 Amlodipine [Norvasc] 10 mg PO DAILY #30 tablet 12/19/18 Prednisone See Taper PO DAILY #30 tablet 12/19/18 The following prescriptions were given: Amlodipine [Norvasc] 10 mg PO DAILY #30 tablet Prednisone See Taper PO DAILY #30 tablet Primary Care Physician: Natalie Brandt [NON-STAFF] - Please follow up with your Primary Care Physician in: 1 Week Test Results: Test results from this visit will be discussed in further detail at your follow- up appointment, if applicable. Please Follow Up With: Calista Bernal NP-C When: 1 Week Proposed Discharge Date: 12/19/18
--- NOTE | 2018-12-19 11:58 | PCM.DC.SUM ---
<Tanya Velázquez - Last Filed: 12/19/18 12:04> Discharge Date and Diagnosis Date of Admission: 12/17/18 Date of Discharge: 12/19/18 - Primary Discharge Diagnosis 1. Exacerbation of chronic bronchiectasis with chronic hypoxic respiratory failure 2. Abnormal troponin, underlying CAD- demand ischemia 2/2 #1 3. Hypertension 4. Hyperlipidemia 5. History of nicotine dependence 6. Morbid obesity 7. BPH 8. Depression 9. 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 Cardiomegaly. Electronically Signed: Shashi Strong MD at 12:21 EST , Service support , Operations: None Procedures: None Summary of Care Provided: The patient is a 63 year old M admitted 12/17/18 due to shortness of breath. 1. Exacerbation of chronic bronchiectasis with chronic hypoxic respiratory failure- pulmonary function test January 2018 showed mild restrictive ventilatory impairment. No reported history of COPD. Patient reports he has been chronically wearing 4-6 L nasal cannula continuously at home. Follows with Dr. Bundy. Oxygen 96% on 6 L. Continue supplement oxygen to maintain O2 at or above 90%. Echocardiogram completed 08/13/2018 due to ongoing dyspnea on exertion. EF 55%, stage I diastolic dysfunction, pulmonary artery systolic pressure 32 mmHg. BIPAP QHS. Respiratory panel negative. Chest x-ray on admission without acute process. Afebrile. No leukocytosis. Prednisone taper at discharge. Follow-up with pulmonary medicine in 1 week. Follow-up with primary care physician 1 week. 2. Abnormal troponin, underlying CAD-cath in January 2018 showed known occluded right coronary artery with [id number] collaterals. Moderate disease in the circumflex artery. Follows with Dr. Pena. Continue aspirin, statin, isosorbide. Patient's enzymes elevated during admission in October as well suspect demand ischemia secondary to #1. Patient denies chest pain. 3. Hypertension-continue home HCTZ/lisinopril, isosorbide, metoprolol. Amlodipine 10 mg daily added. 4. Hyperlipidemia-continue statin. 5. History of nicotine dependence-reports he is 7 months tobacco free. Encouraged continued cessation. 6. Morbid obesity-encouraged diet and lifestyle modifications. 7. BPH-continue home Flomax regimen. 8. Depression-continue home Cymbalta regimen. 9. Obstructive sleep apnea-continue BiPAP nightly. History of noncompliance. General: Alert, Oriented x3, Cooperative HEENT: Atraumatic, PERRLA, EOMI, Normocephalic Neck: Supple, No JVD, Negative Carotid Bruits Lungs: Clear to auscultation, Diminished Cardiovascular: Regular rate, Regular Rhythm, Normal S1, Normal S2, No murmurs Abdomen: Bowel Sounds Present, Soft, Non Tender, Non-Distended, Obese Extremities: No clubbing, No cyanosis, No edema, Capillary Refill Less than 3 Seconds Skin: No rashes, No breakdown Musculoskeletal: No Tenderness to Palpation of Joints or Extremities Neurological: Cranial nerves II-XII grossly intact, Neuro grossly intact Psych/Mental Status: Normal Affect, Appropriate Patient seen and examined prior to discharge. Physical assessment as noted above. Patient is stable for discharge with follow up recommendations as noted above. This patient was seen by JAHAIRA Vee under the supervision of Dr. Guadalupe. - Physical Exam Vital Signs Temp Pulse Resp BP Pulse Ox 97.9 F 99 20 H 141/96 H 96 12/19/18 10:19 12/19/18 11:28 12/19/18 10:57 12/19/18 10:19 12/19/18 10:19 Oxygen Flow Rate (L/min) 6 Oxygen Delivery Method Nasal Cannula Weight: 338 lb 10.08 oz Body Mass Index (BMI) 44.6 Intake and Output for Last 24 Hours 12/17/18 12/18/18 12/19/18 23:59 23:59 23:59 Intake Total 760 / 760 1500 / 1500 240 / 240 Output Total 1775 / 1775 600 / 600 Balance 760 / 760 -275 / -275 -360 / -360 Microbiology Past 72 Hours 12/17/18 19:30 Respiratory Panel (PCR) - Final Mucosa - Nose Laboratory Tests Past 24 Hrs 12/19/18 05:00 Sodium 140 Potassium 3.8 Chloride 103 Carbon Dioxide 27.0 Anion Gap 10 BUN 20 H Creatinine 1.28 Estim Creat Clear Calc 66.76 Est GFR (MDRD) Af Amer 73 Est GFR (MDRD) Non-Af 60 BUN/Creatinine Ratio 15.6 Glucose 226 H Calcium 8.5 Discharge Diet: Low fat/ Low Cholesterol, 1800 Calorie Control Diet Discharge Activity: Return to Normal Activity Call your doctor if you observe: Fever of 101 or Higher, Shortness of breath, Dizziness, Fainting spells, Chest pain Home Medications: Medications to take at Discharge Aspirin E.C. [Ecotrin] 81 mg PO DAILY@0800 02/27/17 Ibuprofen 200 mg PO Q8H PRN PRN 02/27/17 nitroglycerin 0.4 mg sublingual tablet 0.4 mg SUBLINGUAL Q5-15M PRN 01/19/18 Tamsulosin HCl [Flomax] 0.4 mg PO DAILY 02/16/18 Ascorbic Acid [Vitamin C] 1,000 mg PO DAILY 10/18/18 Budesonide/Formoterol 160/4.5 [Symbicort 160/4.5 Mcg Inhaler (SP)] 2 puff INHALATION BID 10/18/18 Duloxetine Hcl [Cymbalta] 30 mg PO DAILY 10/18/18 Gabapentin [Neurontin] 100 mg PO DAILY PRN 10/18/18 Isosorbide Mononitrate [Imdur] 30 mg PO DAILY 10/18/18 Multivitamins,Therapeutic [Multivitamin] 1 tab PO DAILY 10/18/18 Albuterol Aerosols [Ventolin Aerosols] 2.5 mg INHALATION Q2H PRN PRN #120 vial.neb. 10/21/18 Ergocalciferol [Vitamin D] 50,000 unit PO TH 12/17/18 Lisinopril/Hydrochlorothiazide [Lisinopril-Hctz 20-12.5 mg Tab] 1 tab PO BID 12/17/18 Metoprolol Succinate [Toprol Xl] 100 mg PO DAILY 12/17/18 Amlodipine [Norvasc] 10 mg PO DAILY #30 tablet 12/19/18 Prednisone See Taper PO DAILY #30 tablet 12/19/18 Following Prescrptions Were Given to Patient: Amlodipine [Norvasc] 10 mg PO DAILY #30 tablet Prednisone See Taper PO DAILY #30 tablet Primary Care Physician: Natalie Brandt [NON-STAFF] - Please follow up with your Primary Care Physician in: 1 Week Please Follow Up With: Calista Bernal NP-C When: 1 Week Disposition: Home Minutes spent on discharge:: 35 Patient Condition:: Stable Medical Necessity - Tobacco Use Smoking Status: Former smoker Tobacco Use: Cigarettes Meaningful Use Info Meaningful Use Diagnoses (Choose all that apply): None applicable <Mata Guadalupe - Last Filed: 12/19/18 13:46> Discharge Date and Diagnosis - Secondary Discharge Diagnosis Chronic Problems (Last Reviewed 10/31/18 @ 12:57 by Kalina Olvera) Morbid obesity with BMI of 45.0-49.9, adult (Chronic) Chronic respiratory failure with hypoxia (Chronic) 2 L/min at rest and 4 L/min on exertion KIRSTIE (obstructive sleep apnea) (Chronic) BiPAP 16/10 cmH2O with a 6 L/min supplemental oxygen bleed Bronchiectasis (Chronic) Hypersomnia (Chronic) Lung nodule (Chronic) Atherosclerotic heart disease [place] coronary artery w/angina pectoris (Chronic) 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 Left ventricular hypertrophy (Chronic) Premature ventricular beat (Chronic) Nicotine dependence (Chronic) Hyperlipidemia (Chronic) Hypertension (Chronic) Hospital Course and Treatment Summary of Care Provided: The patient is a 63 year old M [] - Physical Exam Vital Signs Temp Pulse Resp BP Pulse Ox 97.9 F 99 20 H 141/96 H 96 12/19/18 10:19 12/19/18 11:28 12/19/18 10:57 12/19/18 10:19 12/19/18 10:19 Oxygen Flow Rate (L/min) 6 Oxygen Delivery Method Nasal Cannula Weight: 338 lb 10.08 oz Body Mass Index (BMI) 44.6 Intake and Output for Last 24 Hours 02/03/0112/18/18 12/19/18 23:59 23:59 23:59 Intake Total 760 / 760 1500 / 1500 240 / 240 Output Total 1775 / 1775 600 / 600 Balance 760 / 760 -275 / -275 -360 / -360 Microbiology Past 72 Hours 12/17/18 19:30 Respiratory Panel (PCR) - Final Mucosa - Nose Laboratory Tests Past 24 Hrs 12/19/18 05:00 Sodium 140 Potassium 3.8 Chloride 103 Carbon Dioxide 27.0 Anion Gap 10 BUN 20 H Creatinine 1.28 Estim Creat Clear Calc 66.76 Est GFR (MDRD) Af Amer 73 Est GFR (MDRD) Non-Af 60 BUN/Creatinine Ratio 15.6 Glucose 226 H Calcium 8.5 Code Visit Addendum: Dr. Guadalupe I personally examined the patient and reviewed the chart. I agree with the above. 63-year-old male presenting with shortness of breath for over a week. He denies having any orthopnea and has seen pulmonology in the past for chronic bronchiectasis. He was admitted in October with a COPD exacerbation secondary to RSV and he returns to during this admission for another COPD exacerbation. He has improved significantly with his IV steroids and will be discharged home on oral prednisone as well as inhalers. He will have outpatient follow-up with his primary care physician as well as pulmonology. Inpatient E&M: 15121 Disch Hosp
--- NOTE | 2018-12-19 12:02 | DS.PCM_ITS ---
<Tanya Velázquez - Last Filed: 12/19/18 12:04> Discharge Date and Diagnosis Date of Admission: 12/17/18 Date of Discharge: 12/19/18 - Primary Discharge Diagnosis 1. Exacerbation of chronic bronchiectasis with chronic hypoxic respiratory failure 2. Abnormal troponin, underlying CAD- demand ischemia 2/2 #1 3. Hypertension 4. Hyperlipidemia 5. History of nicotine dependence 6. Morbid obesity 7. BPH 8. Depression 9. 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 Cardiomegaly. Electronically Signed: Shashi Strong MD at 12:21 EST , Service support , Operations: None Procedures: None Summary of Care Provided: The patient is a 63 year old M admitted 12/17/18 due to shortness of breath. 1. Exacerbation of chronic bronchiectasis with chronic hypoxic respiratory failure- pulmonary function test January 2018 showed mild restrictive ventilatory impairment. No reported history of COPD. Patient reports he has been chronically wearing 4-6 L nasal cannula continuously at home. Follows with Dr. Bundy. Oxygen 96% on 6 L. Continue supplement oxygen to maintain O2 at or above 90%. Echocardiogram completed 08/13/2018 due to ongoing dyspnea on exertion. EF 55%, stage I diastolic dysfunction, pulmonary artery systolic pressure 32 mmHg. BIPAP QHS. Respiratory panel negative. Chest x-ray on admission without acute process. Afebrile. No leukocytosis. Prednisone taper at discharge. Follow-up with pulmonary medicine in 1 week. Follow-up with primary care physician 1 week. 2. Abnormal troponin, underlying CAD-cath in January 2018 showed known occluded right coronary artery with [id number] collaterals. Moderate disease in the circumflex artery. Follows with Dr. Pena. Continue aspirin, statin, isosorbide. Patient's enzymes elevated during admission in October as well suspect demand ischemia secondary to #1. Patient denies chest pain. 3. Hypertension-continue home HCTZ/lisinopril, isosorbide, metoprolol. Amlodipine 10 mg daily added. 4. Hyperlipidemia-continue statin. 5. History of nicotine dependence-reports he is 7 months tobacco free. Encouraged continued cessation. 6. Morbid obesity-encouraged diet and lifestyle modifications. 7. BPH-continue home Flomax regimen. 8. Depression-continue home Cymbalta regimen. 9. Obstructive sleep apnea-continue BiPAP nightly. History of noncompliance. General: Alert, Oriented x3, Cooperative HEENT: Atraumatic, PERRLA, EOMI, Normocephalic Neck: Supple, No JVD, Negative Carotid Bruits Lungs: Clear to auscultation, Diminished Cardiovascular: Regular rate, Regular Rhythm, Normal S1, Normal S2, No murmurs Abdomen: Bowel Sounds Present, Soft, Non Tender, Non-Distended, Obese Extremities: No clubbing, No cyanosis, No edema, Capillary Refill Less than 3 Seconds Skin: No rashes, No breakdown Musculoskeletal: No Tenderness to Palpation of Joints or Extremities Neurological: Cranial nerves II-XII grossly intact, Neuro grossly intact Psych/Mental Status: Normal Affect, Appropriate Patient seen and examined prior to discharge. Physical assessment as noted above. Patient is stable for discharge with follow up recommendations as noted above. This patient was seen by JAHAIRA Vee under the supervision of Dr. Guadalupe. - Physical Exam Vital Signs Temp Pulse Resp BP Pulse Ox 97.9 F 99 20 H 141/96 H 96 12/19/18 10:19 12/19/18 11:28 12/19/18 10:57 12/19/18 10:19 12/19/18 10:19 Oxygen Flow Rate (L/min) 6 Oxygen Delivery Method Nasal Cannula Weight: 338 lb 10.08 oz Body Mass Index (BMI) 44.6 Intake and Output for Last 24 Hours 12/17/18 12/18/18 12/19/18 23:59 23:59 23:59 Intake Total 760 / 760 1500 / 1500 240 / 240 Output Total 1775 / 1775 600 / 600 Balance 760 / 760 -275 / -275 -360 / -360 Microbiology Past 72 Hours 12/17/18 19:30 Respiratory Panel (PCR) - Final Mucosa - Nose Laboratory Tests Past 24 Hrs 12/19/18 05:00 Sodium 140 Potassium 3.8 Chloride 103 Carbon Dioxide 27.0 Anion Gap 10 BUN 20 H Creatinine 1.28 Estim Creat Clear Calc 66.76 Est GFR (MDRD) Af Amer 73 Est GFR (MDRD) Non-Af 60 BUN/Creatinine Ratio 15.6 Glucose 226 H Calcium 8.5 Discharge Diet: Low fat/ Low Cholesterol, 1800 Calorie Control Diet Discharge Activity: Return to Normal Activity Call your doctor if you observe: Fever of 101 or Higher, Shortness of breath, Dizziness, Fainting spells, Chest pain Home Medications: Medications to take at Discharge Aspirin E.C. [Ecotrin] 81 mg PO DAILY@0800 02/27/17 Ibuprofen 200 mg PO Q8H PRN PRN 02/27/17 nitroglycerin 0.4 mg sublingual tablet 0.4 mg SUBLINGUAL Q5-15M PRN 01/19/18 Tamsulosin HCl [Flomax] 0.4 mg PO DAILY 02/16/18 Ascorbic Acid [Vitamin C] 1,000 mg PO DAILY 10/18/18 Budesonide/Formoterol 160/4.5 [Symbicort 160/4.5 Mcg Inhaler (SP)] 2 puff INHALATION BID 10/18/18 Duloxetine Hcl [Cymbalta] 30 mg PO DAILY 10/18/18 Gabapentin [Neurontin] 100 mg PO DAILY PRN 10/18/18 Isosorbide Mononitrate [Imdur] 30 mg PO DAILY 10/18/18 Multivitamins,Therapeutic [Multivitamin] 1 tab PO DAILY 10/18/18 Albuterol Aerosols [Ventolin Aerosols] 2.5 mg INHALATION Q2H PRN PRN #120 vial.neb. 10/21/18 Ergocalciferol [Vitamin D] 50,000 unit PO TH 12/17/18 Lisinopril/Hydrochlorothiazide [Lisinopril-Hctz 20-12.5 mg Tab] 1 tab PO BID 0 12/17/18 Metoprolol Succinate [Toprol Xl] 100 mg PO DAILY 12/17/18 Amlodipine [Norvasc] 10 mg PO DAILY #30 tablet 12/19/18 Prednisone See Taper PO DAILY #30 tablet 12/19/18 Following Prescrptions Were Given to Patient: Amlodipine [Norvasc] 10 mg PO DAILY #30 tablet Prednisone See Taper PO DAILY #30 tablet Primary Care Physician: Natalie Brandt [NON-STAFF] - Please follow up with your Primary Care Physician in: 1 Week Please Follow Up With: Calista Bernal NP-C When: 1 Week Disposition: Home Minutes spent on discharge:: 35 Patient Condition:: Stable Medical Necessity - Tobacco Use Smoking Status: Former smoker Tobacco Use: Cigarettes Meaningful Use Info Meaningful Use Diagnoses (Choose all that apply): None applicable <Mata Guadalupe - Last Filed: 12/19/18 13:46> Discharge Date and Diagnosis - Secondary Discharge Diagnosis Chronic Problems (Last Reviewed 10/31/18 @ 12:57 by Kalina Olvera) Morbid obesity with BMI of 45.0-49.9, adult (Chronic) Chronic respiratory failure with hypoxia (Chronic) 2 L/min at rest and 4 L/min on exertion KIRSTIE (obstructive sleep apnea) (Chronic) BiPAP 16/10 cmH2O with a 6 L/min supplemental oxygen bleed Bronchiectasis (Chronic) Hypersomnia (Chronic) Lung nodule (Chronic) Atherosclerotic heart disease [place] coronary artery w/angina pectoris (Chronic) 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 Left ventricular hypertrophy (Chronic) Premature ventricular beat (Chronic) Nicotine dependence (Chronic) Hyperlipidemia (Chronic) Hypertension (Chronic) Hospital Course and Treatment Summary of Care Provided: The patient is a 63 year old M [] - Physical Exam Vital Signs Temp Pulse Resp BP Pulse Ox 97.9 F 99 20 H 141/96 H 96 12/19/18 10:19 12/19/18 11:28 12/19/18 10:57 12/19/18 10:19 12/19/18 10:19 Oxygen Flow Rate (L/min) 6 Oxygen Delivery Method Nasal Cannula Weight: 338 lb 10.08 oz Body Mass Index (BMI) 44.6 Intake and Output for Last 24 Hours 0212/18/18 12/19/18 23:59 23:59 23:59 Intake Total 760 / 760 1500 / 1500 240 / 240 Output Total 1775 / 1775 600 / 600 Balance 760 / 760 -275 / -275 -360 / -360 Microbiology Past 72 Hours 12/17/18 19:30 Respiratory Panel (PCR) - Final Mucosa - Nose Laboratory Tests Past 24 Hrs 12/19/18 05:00 Sodium 140 Potassium 3.8 Chloride 103 Carbon Dioxide 27.0 Anion Gap 10 BUN 20 H Creatinine 1.28 Estim Creat Clear Calc 66.76 Est GFR (MDRD) Af Amer 73 Est GFR (MDRD) Non-Af 60 BUN/Creatinine Ratio 15.6 Glucose 226 H Calcium 8.5 Code Visit Addendum: Dr. Guadalupe I personally examined the patient and reviewed the chart. I agree with the above. 63-year-old male presenting with shortness of breath for over a week. He denies having any orthopnea and has seen pulmonology in the past for chronic bronchiectasis. He was admitted in October with a COPD exacerbation secondary to RSV and he returns to during this admission for another COPD exacerbation. He has improved significantly with his IV steroids and will be discharged home on oral prednisone as well as inhalers. He will have outpatient follow-up with his primary care physician as well as pulmonology. Inpatient E&M: 31519 Disch Hosp
== END 2018-12-19 14:45 | disposition home or self-care (01) | DRG 140 ==
LOC: ED 12:43 → PCU 15:59
PROVIDERS: Nurse Practitioner Family; Admitting Provider Internal Medicine; Emergency Provider Emergency Medicine; Family Provider Nurse Practitioner Family; PCP Nurse Practitioner Family; Visit Provider Family Medicine
DX: J47.1 Bronchiectasis with (acute) exacerbation (principal); J96.11 Chronic respiratory failure with hypoxia; I25.119 Atherosclerotic heart disease of native coronary artery with unspecified angina pectoris; I11.9 Hypertensive heart disease without heart failure; I24.8 Other forms of acute ischemic heart disease; I49.3 Ventricular premature depolarization; E78.5 Hyperlipidemia, unspecified; F32.9 Major depressive disorder, single episode, unspecified; G47.33 Obstructive sleep apnea (adult) (pediatric); G47.10 Hypersomnia, unspecified; R91.1 Solitary pulmonary nodule; E66.01 Morbid (severe) obesity due to excess calories; Z68.42 Body mass index [BMI] 45.0-49.9, adult; Z99.81 Dependence on supplemental oxygen; Z79.82 Long term (current) use of aspirin; Z79.899 Other long term (current) drug therapy; Z87.891 Personal history of nicotine dependence
CPT/HCPCS: 36415; 71045; 80048; 80053; 83880; 84484; 85027; 87633; 93005; 94640; 94667; 94668; 99285; A4216

== ENCOUNTER 2018-12-20 11:18 | Inpatient (IN) | payer MEDICAID, SELFPAY ==
[2018-12-17 16:46] VITALS: BMI 44.6
[2018-12-20] VITALS (14 sets, daily range): BP systolic 142–198; BP diastolic 80–131; PULSE 76–114; RESP 12–26; TEMP 36.8–37.1; O2SAT 74–98; BMI 44.9; BMI 44.1; BMI 44.2
--- NOTE | 2018-12-20 11:38 | EKG12_ITS ---
Test Reason : SOB Blood Pressure : / mmHG Vent. Rate : 089 BPM Atrial Rate : 089 BPM P-R Int : 146 ms QRS Dur : 102 ms QT Int : 388 ms P-R-T Axes : 054 009 035 degrees QTc Int : 472 ms Normal sinus rhythm Possible Left atrial enlargement Borderline ECG Confirmed by CHUCKY MORENO, BERTRAM ([id number]), magazine editor LENKA CHONG ([id number]) on 12/24/2018 10:28:40 AM Referred By: АЛЕКСАНДР/ETHEL Confirmed By:BERTRAM LOCKE MD
--- NOTE | 2018-12-20 11:38 | RAD_ITS ---
STUDY: X-RAY CHEST REASON FOR EXAM: Male, 63 years old. Chest pain. Shortness of breath. TECHNIQUE: Single AP portable view of the chest. COMPARISON: Comparison is made with prior study dated December 17, 2018. FINDINGS: EKG electrodes are seen. The lungs are clear and expanded. There is no demonstrated pleural abnormality. There is moderate cardiac enlargement. Normal mediastinum and skyler. Normal visualized pulmonary arteries. Normal visualized aortic arch and descending thoracic aorta. Normal visualized thoracic spine. Normal visualized ribs, clavicles, and shoulders. There is no demonstrated abnormality of the visualized soft tissue structures of the upper abdomen. RAD/Chest 1 View (Portable) IMPRESSION: Cardiomegaly. The lungs are clear. Electronically Signed: Shashi Strong MD at 12:20 EST , Service support ,
[2018-12-20 12:04] LABS: Absolute Lymphocyte Count 1.96 X10^3/ul (0.83-4.51); Absolute Neutrophil Count 13.7 X10^3/uL (2.0-7.7); Basophil# 0.01 X10^3/uL; Basophil% 0.1 % (0-1); Differential Indicated SCAN CRITERIA MET; Eosinophil# 0.01 X10^3/uL; Eosinophils% 0.1 % (0-5); Hematocrit 47.5 % (40-54); Hemoglobin 15.5 g/dl (13.0-16.5); Lymphocyte # 1.96 X10^3/ul (4.0); Lymphocyte % 12.2 % (19-41); Mean Corp Hgb Conc 32.6 g/gl (32-36); Mean Corpuscular Hgb 30.9 pg (27.0-32.0); Mean Corpuscular Volume 94.6 fL (80-94); Monocyte# 0.36 X10^3/uL; Monocyte% 2.2 % (0-10); Neutrophil # 13.67 X10^3/uL (2.7-7.7); Neutrophil % 84.9 % (47-70); POSITIVE COUNT NO; POSITIVE DIFFERENTIAL NO; POSITIVE MORPHOLOGY YES; Platelet Count 263 K/mm3 (150-450); RBC Distribution Width CV 14.3 % (11.6-14.6); RBC Distribution Width SD 48.9 fl (35.1-43.9); Red Blood Count 5.02 M/mm3 (4.6-6.2); White Blood Count 16.1 K/mm3 (4.4-11.0)
[2018-12-20 12:20] LABS: Anion Gap 9 (5-15); BUN 21 mg/dL (7-18); BUN/Creat Ratio 14.6 RATIO (10-20); Calcium,Total 8.3 mg/dL (8.5-10.1); Chloride 104 mmol/L (98-107); Creatinine, Serum 1.44 mg/dL (0.70-1.30); EST Glomerular Filtration Rate 53 mL/min (>60); Est Glom Filt Rate - Afr Amer 64 mL/min (>60); Estimated Creatinine Clearance 59.34 ml/min; Glucose 193 mg/dL (74-106); Potassium 3.2 mmol/L (3.5-5.1); Sodium Level 140 mmol/L (136-145)
[2018-12-20 12:26] LABS: BNP,B-Type NATRIURETIC PEPTIDE 350.5 pg/mL (0-100)
[2018-12-20] MEDS: Aspirin 81 MG TAB.CHEW 324 MG PO (12:28)
[2018-12-20] MEDS: MethylPREDNISolone 125 MG/2 ML Vial IV (12:28)
[2018-12-20] MEDS: Ipratropium/Albuterol Sulfate 3 ML AMPUL.NEB INHALATION ×2 (12:36→18:53)
[2018-12-20 12:46] LABS: Lactic Acid 2.9 mmol/L (0.4-2.0)
[2018-12-20 12:46] LABS: Allen Test POS; Base Excess 0 mmol/L (-2 to +2); Bicarbonate 25.4 mmol/L (22-26); Blood Gas Specimen Type ART; EPAP 12; FI02 35; IPAP 18; PO2 80 mmHG (75-100); SITE R Radial; SO2 96 % (95-99); Time Given 1230; Total Carbon Dioxide 27 mmol/L; pCO2 41.4 mmHg (35-45)
--- NOTE | 2018-12-20 12:49 | ED.RN ---
LAB RESULTED LACTIC 2.9, PHYSICIAN AWARE
[2018-12-20 12:57] LABS: Reactive Lymphocyte 1+
--- NOTE | 2018-12-20 13:12 | ED.VISSUMM ---
- ER Visit Summary Date of Service: 12/20/18 Chief Complaint: Shortness of breath History of Present Illness: The patient is a 63 M with shortness of breath that started today. The patient was recently admitted to the hospital for a COPD exacerbation. He also reports some left-sided chest pain as well as a cough and sputum. He has a history of COPD and sleep apnea. He is on 6 L at baseline. Physical Examination: Afebrile and vital signs showed a blood pressure of 198/131 and respiratory rate of 26. Heart rate 114. 71% on room air. Lungs show diminished sounds bilaterally with expiratory wheeze. Heart tachycardic but regular. Skin normal. Pulses strong and equal. Calves soft and supple. Test Results: EKG showed sinus rhythm at a rate of 89. No sign of acute ischemia or infarction. Chest x-ray showed chronic changes, cardiomegaly. White count 16.1, potassium 3.2, glucose 193, BUN 21, creatinine 1.44. Troponin 0.228 and lactate 2.2. Emergency Department Course and Treatment: Patient started on BiPAP. Treated with Solu-Medrol and DuoNeb. We were able to wean him off of BiPAP and back onto nasal cannula. White count elevated. Lactate elevated. Will treat with Levaquin. Cultures were done. Troponin is now elevated from his recent baseline. This was discussed with Dr. Pena. At this point do not treat as NSTEMI, treat as myocardial necrosis of uncertain origin. Hospitalist will admit for further care. Treatment Plan: As above Disposition: Admission Impression: 1. Hypoxic respiratory failure 2. COPD exacerbation 3. Elevated troponin This note was generated with [employer] dictation software. It may contain incorrect words, spelling, and punctuation that were not noted in review of the chart prior to signing ED Disposition - Plan for ED Patient: Referrals: Libby Murphy, SHERRIE-C [Primary Care Provider] -
[2018-12-20] MEDS: levoFLOXacin IV 750 MG/150 ML BAG 100 MG IV (13:27)
--- NOTE | 2018-12-20 15:04 | PCM.HP.STD ---
Problem List (1) Acute and chronic respiratory failure Status: Acute (2) Morbid obesity with BMI of 45.0-49.9, adult Status: Chronic (3) Chronic respiratory failure with hypoxia Status: Chronic Comment: 2 L/min at rest and 4 L/min on exertion (4) KIRSTIE (obstructive sleep apnea) Status: Chronic Comment: BiPAP 16/10 cmH2O with a 6 L/min supplemental oxygen bleed (5) Bronchiectasis Status: Chronic Qualifiers: (6) Hyperlipidemia Status: Chronic Qualifiers: (7) Hypertension Status: Chronic Qualifiers: History of Present Illness Date of Admission: 12/20/18 Chief Complaint: Shortness of breath The patient is a 63 year old M with PMH as below who presents to the emergency room due to increased shortness of breath. He was just discharged yesterday where he was feeling better on the steroids and had to stay at a hotel room because his house is being fumigated for bedbugs. He comes back in with increased shortness of breath and he had difficulty overnight. He was checked in the ER on room air and was found to be 76% however he is chronically supposed to wear 6 L nasal cannula and is currently on only his nasal cannula satting 93%. Of note his troponin since October have been hovering between 0.05 and 0.06 however today on admission he was also complaining of left-sided chest pain and a troponin of 0.228. In the ER he was found to have a leukocytosis of 16 which is related to his prednisone use over the last 2 days, an ABG was obtained which was normal. Past Medical History Past Medical History (Chronic Problems): Chronic Problems (Last Reviewed 10/31/18 @ 12:57 by Kalina Olvera) Morbid obesity with BMI of 45.0-49.9, adult (Chronic) Chronic respiratory failure with hypoxia (Chronic) 2 L/min at rest and 4 L/min on exertion KIRSTIE (obstructive sleep apnea) (Chronic) BiPAP 16/10 cmH2O with a 6 L/min supplemental oxygen bleed Bronchiectasis (Chronic) Hypersomnia (Chronic) Lung nodule (Chronic) Atherosclerotic heart disease [place] coronary artery w/angina pectoris (Chronic) [employer] Mid RCA Left ventricular hypertrophy (Chronic) Premature ventricular beat (Chronic) Nicotine dependence (Chronic) Hyperlipidemia (Chronic) Hypertension (Chronic) Medical History: Medical History (Last Reviewed 10/31/18 @ 12:57 by Kalina Olvera) Atherosclerotic heart disease [place] coronary artery w/angina pectoris (Chronic) I25.119 [employer] Mid RCA Left ventricular hypertrophy (Chronic) I51.7 Premature ventricular beat (Chronic) I49.3 Nicotine dependence (Chronic) F17.200 Hyperlipidemia (Chronic) E78.5 Hypertension (Chronic) I10 BPH (benign prostatic hyperplasia) N40.0 COPD (chronic obstructive pulmonary disease) J44.9 GERD (gastroesophageal reflux disease) K21.9 Obstructive sleep apnea G47.33 right ankle surgery Allergies codeine Adverse Reaction (Verified 12/17/18 11:29) Other-dizzy Home Medications: Ambulatory Orders Medication Instructions Recorded Aspirin E.C. [Ecotrin] 81 mg PO DAILY@0800 02/27/17 Ibuprofen 200 mg PO Q8H PRN PRN 02/27/17 nitroglycerin 0.4 mg sublingual 0.4 mg SUBLINGUAL Q5-15M PRN 01/19/18 tablet Tamsulosin HCl [Flomax] 0.4 mg PO DAILY 02/16/18 Ascorbic Acid [Vitamin C] 1,000 mg PO DAILY 10/18/18 Budesonide/Formoterol 160/4.5 2 puff INHALATION BID 10/18/18 [Symbicort 160/4.5 Mcg Inhaler (SP)] Duloxetine Hcl [Cymbalta] 30 mg PO DAILY 10/18/18 Gabapentin [Neurontin] 100 mg PO DAILY PRN 10/18/18 Isosorbide Mononitrate [Imdur] 30 mg PO DAILY 10/18/18 Multivitamins,Therapeutic 1 tab PO DAILY 10/18/18 [Multivitamin] Albuterol Aerosols [Ventolin 2.5 mg INHALATION Q2H PRN PRN #120 10/21/18 Aerosols] vial.neb. Ergocalciferol [Vitamin D] 50,000 unit PO TH 12/17/18 Lisinopril/Hydrochlorothiazide 1 tab PO BID 12/17/18 [Lisinopril-Hctz 20-12.5 mg Tab] Metoprolol Succinate [Toprol Xl] 100 mg PO DAILY 12/17/18 Amlodipine [Norvasc] 10 mg PO DAILY 12/20/18 Prednisone See Taper PO DAILY 12/20/18 Surgical History: Surgical History (Last Reviewed 10/31/18 @ 12:57 by Kalina Olvera) History of left heart catheterization Onset Date: ~02/2010 Z98.890 [employer] Mid RCA History of right knee surgery Z98.890 History of uvulopalatopharyngoplasty Z98.890 Surgical History: - - Right knee surgery, history of uvulopalatopharyngoplasty, left heart cath. Psychiatric History: No pertinent psych hx Smoking Status: Former smoker Tobacco Use: Cigarettes Alcohol: None Drugs: None - *Family History Maternal History Items: - - Pancreatic cancer. Paternal History Items: COPD Review of Systems Constitutional: Denies: Chills, Fever, Weight Change HEENT: Denies: Head Aches, Sinus Congestion, Sinus Drainage Cardiovascular: Denies: Chest Pain, Palpitations Respiratory: Reports: Cough, Shortness of Breath. Denies: Shortness of breath at rest, Sputum production Gastrointestinal: Denies: Abdominal Pain, Nausea, Vomiting Genitourinary: Denies: Dysuria Musculoskeletal: Denies: Joint Pain, Joint Tenderness Skin: Denies: Rash, Wounds Neurological: Denies: Numbness, Tingling, Focal weakness Psychiatric: Denies: Anxiety, Depression, Homicidal Ideations, Suicidal Ideations Hematologic/ Lymphatic: Denies: Easy Bruising, Easy Bleeding VTE Information - Inpt Only VTE Present on Admission: No Patient Problems: Active and Suspected Problems (Last Reviewed 10/31/18 @ 12:57 by Kalina Olvera) Acute and chronic respiratory failure (Acute) - Physical Exam General: Alert, Oriented x3, Cooperative, No apparent distress HEENT: Atraumatic, PERRLA, EOMI, Normocephalic Oral: Moist Mucosa Neck: Supple, No JVD, Trachea Midline Lungs: Clear to auscultation, No rhonchi, No wheeze, No rales, - - Poor air movement Cardiovascular: Regular rate, Regular Rhythm, Normal S1, Normal S2, No murmurs Abdomen: Soft, Non Tender, Non-Distended, No Hepato-splenomegaly Extremities: No edema, Capillary Refill Less than 3 Seconds Skin: No rashes, No breakdown Neurological: Deep Tendon Reflexes 2+/4 and Symmetrical, Sensory exam intact to light touch and pain Psych/Mental Status: Normal Affect, Appropriate Vital Signs Temp Pulse Resp BP Pulse Ox 98.6 F 93 17 143/92 H 91 12/20/18 13:00 12/20/18 13:00 12/20/18 13:00 12/20/18 13:00 12/20/18 14:25 Oxygen Flow Rate (L/min) 6 Oxygen Delivery Method Nasal Cannula Weight: 335 lb 1.642 oz Body Mass Index (BMI) 44.1 Laboratory Tests Past 24 Hrs 12/20/18 12/20/18 12/20/18 11:50 11:50 11:50 WBC 16.1 H RBC 5.02 Hgb 15.5 Hct 47.5 MCV 94.6 H MCH 30.9 MCHC 32.6 RDW 14.3 RDW Differential 48.9 H Plt Count 263 MPV 11.0 Immature Gran % (Auto) 0.500 Neut % (Auto) 84.9 H Lymph % (Auto) 12.2 L Banks % (Auto) 2.2 Eos % (Auto) 0.1 Baso % (Auto) 0.1 Absolute Neuts (auto) 13.7 H Absolute Lymphs (auto) 1.96 Total Counted Not Reportable Reactive Lymphocytes 1+ Specimen Type Sample Site pH Bicarbonate Actual POC Total CO2 Base Excess O2 Saturation O2 % ABG pCO2 ABG pO2 Stu Test O2 Delivery Device EPAP IPAP Blood Gas Notified Whom Blood Gas Notified Time Sodium 140 Potassium 3.2 L Chloride 104 Carbon Dioxide 27.0 Anion Gap 9 BUN 21 H Creatinine 1.44 H Estim Creat Clear Calc 59.34 Est GFR (MDRD) Af Amer 64 Est GFR (MDRD) Non-Af 53 L BUN/Creatinine Ratio 14.6 Glucose 193 H Lactic Acid Calcium 8.3 L Troponin I 0.228 H B-Natriuretic Peptide 350.5 H 12/20/18 12/20/18 11:50 12:36 WBC RBC Hgb Hct MCV MCH MCHC RDW RDW Differential Plt Count MPV Immature Gran % (Auto) Neut % (Auto) Lymph % (Auto) Banks % (Auto) Eos % (Auto) Baso % (Auto) Absolute Neuts (auto) Absolute Lymphs (auto) Total Counted Reactive Lymphocytes Specimen Type ART Sample Site R Radial pH 7.40 Bicarbonate Actual 25.4 POC Total CO2 27 Base Excess 0 O2 Saturation 96 O2 % 35 ABG pCO2 41.4 ABG pO2 80 Stu Test POS O2 Delivery Device Bi / C PAP EPAP 12 IPAP 18 Blood Gas Notified Whom ED Blood Gas Notified Time 1230 Sodium Potassium Chloride Carbon Dioxide Anion Gap BUN Creatinine Estim Creat Clear Calc Est GFR (MDRD) Af Amer Est GFR (MDRD) Non-Af BUN/Creatinine Ratio Glucose Lactic Acid 2.9 H Calcium Troponin I B-Natriuretic Peptide Assessment/Plan All Active Problems (Last Reviewed 10/31/18 @ 12:57 by Kalina Olvera) Acute and chronic respiratory failure (Acute) 1. Exacerbation of chronic bronchiectasis with chronic hypoxic respiratory failure/KIRSTIE -Continue with steroid and will add Levaquin -Blood cultures are pending, he has not septic as his leukocytosis is secondary to his steroid use -x-ray is negative for consolidation or pneumonia -We will continue with his BiPAP as well as 6 L nasal cannula -Remains afebrile 2. CAD/HTN/HLD -Cardiac catheterization in January which showed known occluded right coronary artery disease with left to right collaterals -Echo in August 2018 demonstrate an EF of 55% with stage I diastolic dysfunction and pulmonary artery systolic pressure of 32 mmHg -We will continue with a statin as well as his hydrochlorothiazide, lisinopril, isosorbide, metoprolol -We will serial lites cardiac enzymes given that his new enzyme is 0.228. Review of EKG is nonischemic at this time 3. BPH -Stable -Continue with Flomax 4. Depression -Stable -Continue with Cymbalta DVT: Lovenox Code Visit Inpatient E&M: 57497 Init Hosp L3
[2018-12-20 15:56] LABS: Reflex Lactate? Y
[2018-12-20 16:53] LABS: Lactic Acid 3.4 mmol/L (0.4-2.0)
[2018-12-21] VITALS (18 sets, daily range): BP systolic 149–179; BP diastolic 71–107; PULSE 66–90; RESP 16–20; TEMP 36.4–36.8; O2SAT 86–96
[2018-12-21] MEDS: Lisinopril 20 MG Tablet PO ×3 (00:14→21:26)
[2018-12-21] MEDS: hydroCHLOROthiazide 12.5mg 12.5 MG PO ×3 (00:15→21:26)
[2018-12-21] MEDS: Acetaminophen 325 MG Tablet 650 MG PO ×3 (00:16→20:35)
[2018-12-21] MEDS: Gabapentin 100 MG Capsule PO (00:16)
[2018-12-21 06:57] LABS: Hemoglobin 15.3 g/dl (13.0-16.5); Mean Corp Hgb Conc 33.3 g/gl (32-36); Mean Corpuscular Hgb 31.3 pg (27.0-32.0); Mean Corpuscular Volume 94.1 fL (80-94); Mean Platelet Vol. 11.3 fl (6.2-12.0); Platelet Count 251 K/mm3 (150-450); RBC Distribution Width CV 13.8 % (11.6-14.6); RBC Distribution Width SD 45.4 fl (35.1-43.9); Red Blood Count 4.89 M/mm3 (4.6-6.2); White Blood Count 15.2 K/mm3 (4.4-11.0)
[2018-12-21] MEDS: Ipratropium/Albuterol Sulfate 3 ML AMPUL.NEB INHALATION ×4 (06:59→20:13)
[2018-12-21 07:04] LABS: Scan Indicated on CBC? Y/N NO
[2018-12-21 07:08] LABS: Anion Gap 10 (5-15); BUN 21 mg/dL (7-18); BUN/Creat Ratio 16.3 RATIO (10-20); Calcium,Total 8.3 mg/dL (8.5-10.1); Chloride 102 mmol/L (98-107); Creatinine, Serum 1.29 mg/dL (0.70-1.30); EST Glomerular Filtration Rate 60 mL/min (>60); Est Glom Filt Rate - Afr Amer 72 mL/min (>60); Estimated Creatinine Clearance 66.24 ml/min; Glucose 161 mg/dL (74-106); Potassium 3.5 mmol/L (3.5-5.1); Sodium Level 141 mmol/L (136-145)
[2018-12-21] MEDS: Metoprolol(XL)Succ 100 MG Tablet PO (09:14)
[2018-12-21] MEDS: Isosorbide Mononitrate 30 MG Tablet PO (09:14)
[2018-12-21] MEDS: predniSONE 20 MG Tablet 40 MG PO (09:14)
[2018-12-21] MEDS: Enoxaparin 40 MG/0.4 ML Syringe SC (09:15)
[2018-12-21] MEDS: levoFLOXacin IV 750 MG/150 ML BAG 100 MG IV (09:20)
[2018-12-21 11:01] LABS: Lactic Acid 1.5 mmol/L (0.4-2.0)
[2018-12-21 11:27] LABS: Phosphorus 3.6 mg/dL (2.5-4.9)
--- NOTE | 2018-12-21 11:39 | CASEMGMT ---
JOHNSON DAWN Readmission Assessment. Previous admission: 12/17/18-12/19/18 DX: resp failure, chronic bronchiectasis. DC Disposition: Home. Pt has home oxygen 5-6L from [employer]. Medications Ventolin aerosols on dc. Pt has nebulizer. Present admission: 12/20/18 DX: COPD exacerbation, L sided chest pain. Intro role of CM to patient and his daughter. Pt states he cannot return home at this time as he would have difficulty doing stairs. Also home is being fumugated for bed bugs. Daughter is attempting to have pt go to Assisted living and is working with PCP, however JOHNSON DAWN let her know this will likely not be an immediate dc plan for this hospitalization. Daughter will continue to pursue this option for eventual placement to Assisted Living. - Pt requested referral to SNF as he states he cannot manage care at home and has no place to go on dc. JOHNSON DAWN inquired on where he could stay in interim, but pt states I have nowhere to go. Daughter is from out of [place]. -Referral to LEELEE Aranda to review for possible SNF placement. Fariha CARDENASN RN ACM
--- NOTE | 2018-12-21 12:06 | CASEMGMT ---
Patient is aware his healthcare POA and healthcare LW are not on file at [facility]. Diann CHAIDEZ MSW
--- NOTE | 2018-12-21 14:18 | CASEMGMT ---
LEELEE spoke with patient's daughter. RN NEREYDA spoke with them and they would like SNF. She said she is considering [facility] as she has a relative that works there. Patient is in agreement. SW explained cannot guarantee he will get approved. A lot depends on how he does with therapy. She verbalizes understanding. Therapy was ordered today. Diann CHAIDEZ MSW
--- NOTE | 2018-12-21 16:14 | CASEMGMT ---
Therapy saw patient and said he does not meet fpc level of care. They said he would be better off going home with home health. SW spoke with patient and he said he is fine with this. LEELEE called and arranged home health with A. LEELEE faxed orders to A. SW called patient's daughter an let her know that this is what has transpired since she has left the hospital. She said even though he cannot cook for himself or do his laundry. LEELEE told her it may be helpful if she could help him a little. She asked if SW was going to be around for a little while as she is on her way back in. SW will talk with her and patient when she arrives. Diann CHAIDEZ MSW
--- NOTE | 2018-12-21 17:06 | CASEMGMT ---
LEELEE spoke with patient and his daughter. They are both in agreement with home health, but need to make sure things are set up at home. He does have a futon at home with his television. He needs to have his O2 concentrator's switched out due to the bed bugs. She said she needs to get in to his apartment and clean as she has not been there since they exterminated for bed bugs. LEELEE told them that it is possible therapy could take him on steps tomorrow to see how he does. They both agreed with home health. JOHNSON DAWN called [facility] [place] [place] and they will switch out his concentrator today. Patient's portable tanks have all been refilled. His order for O2 was only for 2-4 L. He is now on 5-6. A new order will need to be signed so more portables can be delivered to his home. Therefore he won't have to go and exchange tanks at [facility] [place] [place] anymore. JOHNSON DAWN put a green sheet on chart with instructions for the new order for O2. En will be out to see him either Monday or Monday if he is discharged Monday. Plan: home with [facility] home health RN and PT/OT. Diann CHAIDEZ FUNERAL ATTENDANT
--- NOTE | 2018-12-21 18:32 | PCM.PN.HOSP ---
Patient Problems: Active and Suspected Problems (Last Reviewed 10/31/18 @ 12:57 by Kalina Olvera) Acute and chronic respiratory failure (Acute) Subjective: Feels back to baseline but does not think that he has any place to go because he is unable to go upstairs to take a shower or downstairs to do laundry he is short of breath he gets Vitals/I&O's: Vital Signs Temp Pulse Resp BP Pulse Ox 98.1 F 74 20 H 163/107 H 93 12/21/18 15:00 12/21/18 15:36 12/21/18 15:36 12/21/18 15:00 12/21/18 18:00 Oxygen Flow Rate (L/min) [ 6 AMBULATION with Oxygen] Oxygen Flow Rate (L/min) 6 Oxygen Delivery Method Nasal Cannula Weight: 335 lb 1.642 oz Body Mass Index (BMI) 44.1 Intake and Output for Last 24 Hours 12/19/18 12/20/18 12/21/18 23:59 23:59 23:59 Intake Total 486 / 486 Output Total 1700 / 1700 Balance -1214 / -1214 General: Alert, Oriented x3, Cooperative, No apparent distress HEENT: Atraumatic, PERRLA, EOMI, Normocephalic Oral: Moist Mucosa Neck: Supple, No JVD, Trachea Midline Lungs: Clear to auscultation, No rhonchi, No wheeze, No rales, - - Poor air movement Cardiovascular: Regular rate, Regular Rhythm, Normal S1, Normal S2, No murmurs Abdomen: Soft, Non Tender, Non-Distended, No Hepato-splenomegaly Extremities: No edema, Capillary Refill Less than 3 Seconds Skin: No rashes, No breakdown Neurological: Neuro generally intact, Sensory exam intact to light touch and pain Psych/Mental Status: Normal Affect, Appropriate Laboratory Results 12/20/18 19:15: Troponin I 0.145 H 12/21/18 06:20: WBC 15.2 H, RBC 4.89, Hgb 15.3, Hct 46.0, MCV 94.1 H, MCH 31.3, MCHC 33.3, RDW 13.8, RDW Differential 45.4 H, Plt Count 251, MPV 11.3 12/21/18 06:20: Sodium 141, Potassium 3.5, Chloride 102, Carbon Dioxide 29.0, Anion Gap 10, BUN 21 H, Creatinine 1.29, Estim Creat Clear Calc 66.24, Est GFR (MDRD) Af Amer 72, Est GFR (MDRD) Non-Af 60, BUN/Creatinine Ratio 16.3, Glucose 161 H, Calcium 8.3 L 12/21/18 06:20: Phosphorus 3.6, Magnesium 2.0 12/21/18 10:30: Lactic Acid 1.5 Current Medications Acetaminophen (Tylenol) 650 mg PO Q6H PRN PRN PRN Reason: PAIN Last Admin: 12/21/18 09:15 Dose: 650 mg Albuterol/Ipratropium (Duoneb) 3 ml INHALATION Q4HWA.RT [facility] Last Admin: 12/21/18 15:35 Dose: 3 ml Enoxaparin Sodium (Lovenox) 40 mg SC DAILY@1000 [facility] Last Admin: 12/21/18 09:15 Dose: 40 mg Gabapentin (Neurontin) 100 mg PO DAILY PRN PRN Reason: nerve pain Last Admin: 12/21/18 00:16 Dose: 100 mg Hydrochlorothiazide () 12.5 mg PO BID [facility] Last Admin: 12/21/18 09:15 Dose: 12.5 mg Levofloxacin (Levaquin Iv) 750 mg in 150 mls @ 100 mls/hr IV Q24 [facility] Last Admin: 12/21/18 09:20 Dose: 100 mls/hr Isosorbide Mononitrate (Imdur) 30 mg PO DAILY [facility] Last Admin: 12/21/18 09:14 Dose: 30 mg Lisinopril (Zestril) 20 mg PO BID [facility] Last Admin: 12/21/18 09:15 Dose: 20 mg Magnesium Hydroxide (Milk Of Magnesia) 30 ml PO DAILY PRN PRN Reason: Constipation Metoprolol Succinate (Toprol Xl (Beta Kelly)) 100 mg PO DAILY [facility] Last Admin: 12/21/18 09:14 Dose: 100 mg Prednisone () 40 mg PO DAILY@0800 [facility] Last Admin: 12/21/18 09:14 Dose: 40 mg Sodium Chloride () 5 - 15 ml IV UD PRN PRN Reason: SALINE FLUSH Medical Necessity - Tobacco Use Smoking Status: Former smoker Tobacco Use: Cigarettes Assessment/Plan All Active Problems (Last Reviewed 10/31/18 @ 12:57 by Kalina Olvera) Acute and chronic respiratory failure (Acute) 1. Exacerbation of chronic bronchiectasis with chronic hypoxic respiratory failure/KIRSTIE -Continue with steroid and will add Levaquin, though in discussion with him today he thinks that he ran out of oxygen because he is on 6 L nasal cannula and he only had a tank with him for over 12 hours -Blood cultures are pending, he has not septic as his leukocytosis is secondary to his steroid use -x-ray is negative for consolidation or pneumonia -Continue with 6 L nasal cannula -Remains afebrile 2. CAD/HTN/HLD -Cardiac catheterization in January which showed known occluded right coronary artery disease with left to right collaterals -Echo in August 2018 demonstrate an EF of 55% with stage I diastolic dysfunction and pulmonary artery systolic pressure of 32 mmHg -We will continue with a statin as well as his hydrochlorothiazide, lisinopril, isosorbide, metoprolol -Troponins decreased to 0.145 from 0.228, likely secondary to his hypoxia 3. BPH -Stable -Continue with Flomax 4. Depression -Stable -Continue with Cymbalta DVT: Lovenox Code Visit Inpatient E&M: 89891 Subs Hosp L2
--- NOTE | 2018-12-21 18:35 | PN_ITS ---
Patient Problems: Active and Suspected Problems (Last Reviewed 10/31/18 @ 12:57 by Kalina Olvera) Acute and chronic respiratory failure (Acute) Subjective: Feels back to baseline but does not think that he has any place to go because he is unable to go upstairs to take a shower or downstairs to do laundry he is short of breath he gets Vitals/I&O's: Vital Signs Temp Pulse Resp BP Pulse Ox 98.1 F 74 20 H 163/107 H 93 12/21/18 15:00 12/21/18 15:36 12/21/18 15:36 12/21/18 15:00 12/21/18 18:00 Oxygen Flow Rate (L/min) [ 6 AMBULATION with Oxygen] Oxygen Flow Rate (L/min) 6 Oxygen Delivery Method Nasal Cannula Weight: 335 lb 1.642 oz Body Mass Index (BMI) 44.1 Intake and Output for Last 24 Hours 12/19/18 12/20/18 12/21/18 23:59 23:59 23:59 Intake Total 486 / 486 Output Total 1700 / 1700 Balance -1214 / -1214 General: Alert, Oriented x3, Cooperative, No apparent distress HEENT: Atraumatic, PERRLA, EOMI, Normocephalic Oral: Moist Mucosa Neck: Supple, No JVD, Trachea Midline Lungs: Clear to auscultation, No rhonchi, No wheeze, No rales, - - Poor air movement Cardiovascular: Regular rate, Regular Rhythm, Normal S1, Normal S2, No murmurs Abdomen: Soft, Non Tender, Non-Distended, No Hepato-splenomegaly Extremities: No edema, Capillary Refill Less than 3 Seconds Skin: No rashes, No breakdown Neurological: Neuro generally intact, Sensory exam intact to light touch and pain Psych/Mental Status: Normal Affect, Appropriate Laboratory Results 12/20/18 19:15: Troponin I 0.145 H 12/21/18 06:20: WBC 15.2 H, RBC 4.89, Hgb 15.3, Hct 46.0, MCV 94.1 H, MCH 31.3, MCHC 33.3, RDW 13.8, RDW Differential 45.4 H, Plt Count 251, MPV 11.3 12/21/18 06:20: Sodium 141, Potassium 3.5, Chloride 102, Carbon Dioxide 29.0, Anion Gap 10, BUN 21 H, Creatinine 1.29, Estim Creat Clear Calc 66.24, Est GFR (MDRD) Af Amer 72, Est GFR (MDRD) Non-Af 60, BUN/Creatinine Ratio 16.3, Glucose 161 H, Calcium 8.3 L 12/21/18 06:20: Phosphorus 3.6, Magnesium 2.0 12/21/18 10:30: Lactic Acid 1.5 Current Medications Acetaminophen (Tylenol) 650 mg PO Q6H PRN PRN PRN Reason: PAIN Last Admin: 12/21/18 09:15 Dose: 650 mg Albuterol/Ipratropium (Duoneb) 3 ml INHALATION Q4HWA.RT COUNTS INCLUDE 234 BEDS AT [facility] Last Admin: 12/21/18 15:35 Dose: 3 ml Enoxaparin Sodium (Lovenox) 40 mg SC DAILY@1000 COUNTS INCLUDE 234 BEDS AT THE [facility] Last Admin: 12/21/18 09:15 Dose: 40 mg Gabapentin (Neurontin) 100 mg PO DAILY PRN PRN Reason: nerve pain Last Admin: 12/21/18 00:16 Dose: 100 mg Hydrochlorothiazide () 12.5 mg PO BID COUNTS INCLUDE 234 BEDS AT THE [facility] Last Admin: 12/21/18 09:15 Dose: 12.5 mg Levofloxacin (Levaquin Iv) 750 mg in 150 mls @ 100 mls/hr IV Q24 COUNTS INCLUDE 234 BEDS AT THE [facility] Last Admin: 12/21/18 09:20 Dose: 100 mls/hr Isosorbide Mononitrate (Imdur) 30 mg PO DAILY COUNTS INCLUDE 234 BEDS AT THE [facility] Last Admin: 12/21/18 09:14 Dose: 30 mg Lisinopril (Zestril) 20 mg PO BID COUNTS INCLUDE 234 BEDS AT THE [facility] Last Admin: 12/21/18 09:15 Dose: 20 mg Magnesium Hydroxide (Milk Of Magnesia) 30 ml PO DAILY PRN PRN Reason: Constipation Metoprolol Succinate (Toprol Xl (Beta Kelly)) 100 mg PO DAILY COUNTS INCLUDE 234 BEDS AT THE [facility] Last Admin: 12/21/18 09:14 Dose: 100 mg Prednisone () 40 mg PO DAILY@0800 COUNTS INCLUDE 234 BEDS AT THE [facility] Last Admin: 12/21/18 09:14 Dose: 40 mg Sodium Chloride () 5 - 15 ml IV UD PRN PRN Reason: SALINE FLUSH Medical Necessity - Tobacco Use Smoking Status: Former smoker Tobacco Use: Cigarettes Assessment/Plan All Active Problems (Last Reviewed 10/31/18 @ 12:57 by Kalina Olvera) Acute and chronic respiratory failure (Acute) 1. Exacerbation of chronic bronchiectasis with chronic hypoxic respiratory failure/KISRTIE -Continue with steroid and will add Levaquin, though in discussion with him today he thinks that he ran out of oxygen because he is on 6 L nasal cannula and he only had a tank with him for over 12 hours -Blood cultures are pending, he has not septic as his leukocytosis is secondary to his steroid use -x-ray is negative for consolidation or pneumonia -Continue with 6 L nasal cannula -Remains afebrile 2. CAD/HTN/HLD -Cardiac catheterization in January which showed known occluded right coronary artery disease with left to right collaterals -Echo in August 2018 demonstrate an EF of 55% with stage I diastolic dysfunction and pulmonary artery systolic pressure of 32 mmHg -We will continue with a statin as well as his hydrochlorothiazide, lisinopril, isosorbide, metoprolol -Troponins decreased to 0.145 from 0.228, likely secondary to his hypoxia 3. BPH -Stable -Continue with Flomax 4. Depression -Stable -Continue with Cymbalta DVT: Lovenox Code Visit Inpatient E&M: 55252 Subs Hosp L2
[2018-12-22] VITALS (21 sets, daily range): BP systolic 154–193; BP diastolic 82–100; PULSE 70–96; RESP 12–24; TEMP 36.5–37; O2SAT 94–98
[2018-12-22] MEDS: Gabapentin 100 MG Capsule PO ×2 (00:04→22:42)
[2018-12-22] MEDS: Labetalol 20 MG/4 ML Vial 10 MG IV ×2 (01:20→05:37)
[2018-12-22] MEDS: 0.9% NaCl Peripheral Flush Adult/Peds IV ×2 (01:20→05:37)
[2018-12-22 06:50] LABS: Absolute Lymphocyte Count 4.01 X10^3/ul (0.83-4.51); Absolute Neutrophil Count 8.6 X10^3/uL (2.0-7.7); Basophil# 0.03 X10^3/uL; Basophil% 0.2 % (0-1); Eosinophil# 0.06 X10^3/uL; Eosinophils% 0.4 % (0-5); Hematocrit 49.6 % (40-54); Hemoglobin 16.3 g/dl (13.0-16.5); Lymphocyte # 4.01 X10^3/ul (4.0); Lymphocyte % 28.5 % (19-41); Mean Corp Hgb Conc 32.9 g/gl (32-36); Mean Corpuscular Hgb 30.8 pg (27.0-32.0); Mean Corpuscular Volume 93.8 fL (80-94); Mean Platelet Vol. 11.5 fl (6.2-12.0); Monocyte% 8.5 % (0-10); Neutrophil # 8.63 X10^3/uL (2.7-7.7); Neutrophil % 61.3 % (47-70); POSITIVE COUNT NO; POSITIVE DIFFERENTIAL NO; POSITIVE MORPHOLOGY NO; Platelet Count 279 K/mm3 (150-450); RBC Distribution Width SD 47.4 fl (35.1-43.9); Red Blood Count 5.29 M/mm3 (4.6-6.2); White Blood Count 14.1 K/mm3 (4.4-11.0)
[2018-12-22] MEDS: Ipratropium/Albuterol Sulfate 3 ML AMPUL.NEB INHALATION ×5 (06:56→23:04)
[2018-12-22 07:04] LABS: Anion Gap 11 (5-15); BUN 21 mg/dL (7-18); BUN/Creat Ratio 15.8 RATIO (10-20); Calcium,Total 8.6 mg/dL (8.5-10.1); Chloride 102 mmol/L (98-107); Creatinine, Serum 1.33 mg/dL (0.70-1.30); EST Glomerular Filtration Rate 58 mL/min (>60); Est Glom Filt Rate - Afr Amer 70 mL/min (>60); Estimated Creatinine Clearance 64.25 ml/min; Glucose 120 mg/dL (74-106); Potassium 3.3 mmol/L (3.5-5.1); Sodium Level 141 mmol/L (136-145)
[2018-12-22] MEDS: Metoprolol(XL)Succ 100 MG Tablet PO (08:58)
[2018-12-22] MEDS: Isosorbide Mononitrate 30 MG Tablet PO (08:59)
[2018-12-22] MEDS: Lisinopril 20 MG Tablet PO ×2 (09:00→22:42)
[2018-12-22] MEDS: hydroCHLOROthiazide 12.5mg 12.5 MG PO ×2 (09:00→22:42)
[2018-12-22] MEDS: Enoxaparin 40 MG/0.4 ML Syringe SC (09:00)
[2018-12-22] MEDS: predniSONE 20 MG Tablet 40 MG PO (09:00)
[2018-12-22] MEDS: levoFLOXacin IV 750 MG/150 ML BAG 100 MG IV (11:30)
[2018-12-22] MEDS: amLODIPine 10 MG Tablet PO (12:45)
[2018-12-22] MEDS: Acetaminophen 325 MG Tablet 650 MG PO ×2 (14:11→22:43)
--- NOTE | 2018-12-22 14:39 | PN_ITS ---
Patient Problems: Active and Suspected Problems (Last Reviewed 10/31/18 @ 12:57 by Kalina Olvera) Acute and chronic respiratory failure (Acute) Subjective: No acute events overnight. He does continue to have abnormal beats on his telemetry though he remains asymptomatic Vitals/I&O's: Vital Signs Temp Pulse Resp BP Pulse Ox 98.6 F 82 22 H 173/96 H 95 12/22/18 08:30 12/22/18 14:05 12/22/18 14:05 12/22/18 08:58 12/22/18 08:30 Oxygen Flow Rate (L/min) [ 6 AMBULATION with Oxygen] Oxygen Flow Rate (L/min) 6 Oxygen Delivery Method Nasal Cannula Weight: 335 lb 1.642 oz Body Mass Index (BMI) 44.1 Intake and Output for Last 24 Hours 12/20/18 12/21/18 12/22/18 23:59 23:59 23:59 Intake Total 486 / 486 490 / 490 Output Total 1700 / 1700 100 / 100 Balance -1214 / -1214 390 / 390 General: Alert, Oriented x3, Cooperative, No apparent distress HEENT: Atraumatic, PERRLA, EOMI, Normocephalic Oral: Moist Mucosa Neck: Supple, No JVD, Trachea Midline Lungs: Clear to auscultation, No rhonchi, No wheeze, No rales, - - Poor air movement Cardiovascular: Regular rate, Regular Rhythm, Normal S1, Normal S2, No murmurs Abdomen: Soft, Non Tender, Non-Distended, No Hepato-splenomegaly Extremities: No edema, Capillary Refill Less than 3 Seconds Skin: No rashes, No breakdown Neurological: Neuro generally intact, Sensory exam intact to light touch and pain Psych/Mental Status: Normal Affect, Appropriate Laboratory Results 12/22/18 05:40: WBC 14.1 H, RBC 5.29, Hgb 16.3, Hct 49.6, MCV 93.8, MCH 30.8, MCHC 32.9, RDW 14.0, RDW Differential 47.4 H, Plt Count 279, MPV 11.5, Immature Gran % (Auto) 1.100 H, Neut % (Auto) 61.3, Lymph % (Auto) 28.5, [place] % (Auto) 8.5, Eos % (Auto) 0.4, Baso % (Auto) 0.2, Absolute Neuts (auto) 8.6 H, Absolute Lymphs (auto) 4.01, Total Counted Not Reportable 12/22/18 05:40: Sodium 141, Potassium 3.3 L, Chloride 102, Carbon Dioxide 28.0, Anion Gap 11, BUN 21 H, Creatinine 1.33 H, Estim Creat Clear Calc 64.25, Est GFR (MDRD) Af Amer 70, Est GFR (MDRD) Non-Af 58 L, BUN/Creatinine Ratio 15.8, Glucose 120 H, Calcium 8.6 Current Medications Acetaminophen (Tylenol) 650 mg PO Q6H PRN PRN PRN Reason: PAIN Last Admin: 12/22/18 14:11 Dose: 650 mg Albuterol/Ipratropium (Duoneb) 3 ml INHALATION Q4HWA.RT [facility] Last Admin: 12/22/18 11:19 Dose: 3 ml Amlodipine Besylate (Norvasc) 10 mg PO DAILY [facility] Aspirin (Ecotrin) 81 mg PO DAILY@0800 [facility] Budesonide (Pulmicort Aerosol) 0.5 mg INHALATION Q12H.RT [facility] Carvedilol (Coreg) 12.5 mg PO BID [facility] Duloxetine HCl (Cymbalta) 30 mg PO DAILY [facility] Enoxaparin Sodium (Lovenox) 40 mg SC DAILY@1000 [facility] Last Admin: 12/22/18 09:00 Dose: 40 mg Gabapentin (Neurontin) 100 mg PO DAILY PRN PRN Reason: nerve pain Last Admin: 12/22/18 00:04 Dose: 100 mg Hydrochlorothiazide () 12.5 mg PO BID [facility] Last Admin: 12/22/18 09:00 Dose: 12.5 mg Levofloxacin (Levaquin Iv) 750 mg in 150 mls @ 100 mls/hr IV Q24 [facility] Last Admin: 12/22/18 11:30 Dose: 100 mls/hr Ibuprofen (Motrin) 200 mg PO Q8H PRN PRN PRN Reason: PAIN Isosorbide Mononitrate (Imdur) 30 mg PO DAILY [facility] Last Admin: 12/22/18 08:59 Dose: 30 mg Labetalol HCl (Trandate) 10 mg IV Q4H PRN PRN PRN Reason: sbp>160 Last Admin: 12/22/18 05:37 Dose: 10 mg Lisinopril (Zestril) 20 mg PO BID [facility] Last Admin: 12/22/18 09:00 Dose: 20 mg Magnesium Hydroxide (Milk Of Magnesia) 30 ml PO DAILY PRN PRN Reason: Constipation Prednisone () 40 mg PO DAILY@0800 [facility] Last Admin: 12/22/18 09:00 Dose: 40 mg Sodium Chloride () 5 - 15 ml IV UD PRN PRN Reason: SALINE FLUSH Last Admin: 12/22/18 05:37 Dose: 10 ml Tamsulosin HCl (Flomax) 0.4 mg PO DAILY [facility] Medical Necessity - Tobacco Use Smoking Status: Former smoker Tobacco Use: Cigarettes Assessment/Plan All Active Problems (Last Reviewed 10/31/18 @ 12:57 by Kalina Olvera) Acute and chronic respiratory failure (Acute) 1. Exacerbation of chronic bronchiectasis with chronic hypoxic respiratory failure/KIRSTIE -Continue with steroid and will continue with Levaquin, though in discussion with him today he thinks that he ran out of oxygen because he is on 6 L nasal cannula and he only had a tank with him for over 12 hours -Blood cultures are pending, he has not septic as his leukocytosis is secondary to his steroid use -x-ray is negative for consolidation or pneumonia -Continue with 6 L nasal cannula -Remains afebrile 2. CAD/HTN/HLD -Cardiac catheterization in January which showed known occluded right coronary artery disease with left to right collaterals -Echo in August 2018 demonstrate an EF of 55% with stage I diastolic dys function and pulmonary artery systolic pressure of 32 mmHg -We will continue with a statin as well as his hydrochlorothiazide, lisinopril, isosorbide, Norvasc -We will transition his metoprolol to Coreg twice daily -Troponins decreased to 0.145 from 0.228, likely secondary to his hypoxia 3. BPH -Stable -Continue with Flomax 4. Depression -Stable -Continue with Cymbalta DVT: Lovenox Code Visit Inpatient E&M: 17145 Subs Hosp L2
[2018-12-22] MEDS: Budesonide Respules 0.5 MG/2 ML AMPUL.NEB. INHALATION (20:03)
[2018-12-22] MEDS: Carvedilol 12.5 MG Tablet PO (22:42)
[2018-12-22] MEDS: Mag Hydrox/Al Hydrox/Simeth 30 ML UDC PO (22:58)
[2018-12-23] VITALS (9 sets, daily range): BP systolic 147–152; BP diastolic 87–96; PULSE 64–81; RESP 18; TEMP 36.5–36.7; O2SAT 88–98
[2018-12-23] MEDS: Ipratropium/Albuterol Sulfate 3 ML AMPUL.NEB INHALATION ×2 (04:55→11:16)
[2018-12-23] MEDS: Mag Hydrox/Al Hydrox/Simeth 30 ML UDC PO ×2 (04:55→10:46)
[2018-12-23 05:36] LABS: BUN 22 mg/dL (7-18); Calcium,Total 8.4 mg/dL (8.5-10.1); Chloride 103 mmol/L (98-107); Creatinine, Serum 1.27 mg/dL (0.70-1.30); Estimated Creatinine Clearance 67.28 ml/min; Glucose 121 mg/dL (74-106); Potassium 3.6 mmol/L (3.5-5.1); Sodium Level 142 mmol/L (136-145)
[2018-12-23 05:57] LABS: Anion Gap 10 (5-15); BUN/Creat Ratio 17.3 RATIO (10-20); EST Glomerular Filtration Rate 61 mL/min (>60); Est Glom Filt Rate - Afr Amer 74 mL/min (>60)
--- NOTE | 2018-12-23 08:51 | DCINST_ITS ---
- Discharge Diagnoses Current Active Problems: Current Active and Chronic Problems (Last Reviewed 10/31/18 @ 12:57 by Kalina Olvera) Acute and chronic respiratory failure (Acute) You will use the following diet at home:: Cardiac Your food should be the consistency of: Regular Your liquids should be the consistency of: Regular/Thin Discharge Activity: Return to Normal Activity Call your doctor if you observe: Fever of 101 or Higher, Shortness of breath, Dizziness, Chest pain, Increased palpitations (irregular heartbeat) Allergies/Adverse Reactions: Allergies codeine Adverse Reaction (Verified 12/17/18 11:29) Other-dizzy Medications to take at Discharge Aspirin E.C. [Ecotrin] 81 mg PO DAILY@0800 02/27/17 Ibuprofen 200 mg PO Q8H PRN PRN 02/27/17 nitroglycerin 0.4 mg sublingual tablet 0.4 mg SUBLINGUAL Q5-15M PRN 01/19/18 Tamsulosin HCl [Flomax] 0.4 mg PO DAILY 02/16/18 Ascorbic Acid [Vitamin C] 1,000 mg PO DAILY 10/18/18 Budesonide/Formoterol 160/4.5 [Symbicort 160/4.5 Mcg Inhaler (SP)] 2 puff INHALATION BID 10/18/18 Duloxetine Hcl [Cymbalta] 30 mg PO DAILY 10/18/18 Gabapentin [Neurontin] 100 mg PO DAILY PRN 10/18/18 Isosorbide Mononitrate [Imdur] 30 mg PO DAILY 10/18/18 Multivitamins,Therapeutic [Multivitamin] 1 tab PO DAILY 10/18/18 Albuterol Aerosols [Ventolin Aerosols] 2.5 mg INHALATION Q2H PRN PRN #120 vial.neb. 10/21/18 Ergocalciferol [Vitamin D] 50,000 unit PO TH 12/17/18 Lisinopril/Hydrochlorothiazide [Lisinopril-Hctz 20-12.5 mg Tab] 1 tab PO BID 12/17/18 Amlodipine [Norvasc] 10 mg PO DAILY 12/20/18 Prednisone See Taper PO DAILY 12/20/18 Carvedilol [Coreg (Beta Kelly)] 12.5 mg PO BID #60 tablet 12/23/18 The following prescriptions were given: Carvedilol [Coreg (Beta Kelly)] 12.5 mg PO BID #60 tablet Primary Care Physician: Libby Murphy NP-C [Primary Care Provider] - Please follow up with your Primary Care Physician in: 3-5 days Test Results: Test results from this visit will be discussed in further detail at your follow- up appointment, if applicable. Please Follow Up With: Clifford Pena MD - Stuart to see PROGRAM COORDINATOR FOR [employer] When: 1-2 weeks
--- NOTE | 2018-12-23 08:56 | DS.PCM_ITS ---
Discharge Date and Diagnosis - Problem List Patient Problems: Active and Suspected Problems (Last Reviewed 10/31/18 @ 12:57 by Kalina Olvera) Acute and chronic respiratory failure (Acute) Date of Admission: 12/20/18 Date of Discharge: 12/23/18 - Primary Discharge Diagnosis Active and Suspected Problems (Last Reviewed 10/31/18 @ 12:57 by Kalina Olvera) Acute and chronic respiratory failure (Acute) - Secondary Discharge Diagnosis Chronic Problems (Last Reviewed 10/31/18 @ 12:57 by Kalina Olvera) Morbid obesity with BMI of 45.0-49.9, adult (Chronic) Chronic respiratory failure with hypoxia (Chronic) 2 L/min at rest and 4 L/min on exertion KIRSTIE (obstructive sleep apnea) (Chronic) BiPAP 16/10 cmH2O with a 6 L/min supplemental oxygen bleed Bronchiectasis (Chronic) Hypersomnia (Chronic) Lung nodule (Chronic) Atherosclerotic heart disease [place] coronary artery w/angina pectoris (Chronic) 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 The lungs are clear. Consults: None Operations: None Procedures: None Summary of Care Provided: HPI: The patient is a 63 year old M with PMH as below who presents to the emergency room due to increased shortness of breath. He was just discharged yesterday where he was feeling better on the steroids and had to stay at a hotel room because his house is being fumigated for bedbugs. He comes back in with increased shortness of breath and he had difficulty overnight. He was checked in the ER on room air and was found to be 76% however he is chronically supposed to wear 6 L nasal cannula and is currently on only his nasal cannula satting 93%. Of note his troponin since October have been hovering between 0.05 and 0.06 however today on admission he was also complaining of left-sided chest pain and a troponin of 0.228. In the ER he was found to have a leukocytosis of 16 which is related to his prednisone use over the last 2 days, an ABG was obtained which was normal. Hospital Course: 1. Exacerbation of chronic bronchiectasis with chronic hypoxic respiratory failure/KHS-30-wxtw-old male who is on 6 L nasal cannula at baseline, was recently discharged from the hospital on a steroid taper for exacerbation of his chronic bronchiectasis. He went to a hotel that night because his house was being fumigated for bedbugs. It appears that he did not taken of oxygen with him and became extremely hypoxic overnight when his oxygen ran out. He presented to the ER and was hypoxic to 76 however he responded back to the mid 90s once he was placed on 6 L nasal cannula. He is okay for discharge today to home to continue his steroid taper as well as his breathing treatments. We will discharge him with home health and update his prescription for his 6 L of oxygen. Initially was unsure as to why he became hypoxic and so he was started on Levaquin, however this was discontinued on discharge because it was felt that he was not septic and #1 septic, and did not have pneumonia and the antibiotics were unnecessary and causing diarrhea. 2. CAD/HTN/HLD-during his stay he was hypertensive and did have a slight increase in his troponin to 0.228. He did decrease to 0.145 prior to discharge, this was felt to be secondary to his hypoxia. However I did discontinue his metoprolol and transition him to Coreg 6.25 mg p.o. twice daily. I did make any further changes to his medication regimen. I do recommend that he follow-up with cardiology because he was having episodes of ectopy that were not associated with his electrolytes, I felt it was due to his hypoxia. He did have an echo in August that demonstrated an EF of 55% with stage I diastolic dysfunction with pulmonary artery systolic pressure of 32 mmHg. He states his been a while since he seen his cena I do recommend that he follow-up with cardiology within the next week or so. 3. His other medical diagnoses were evaluated and his home medications were continued where appropriate Patient Problems: Active and Suspected Problems (Last Reviewed 10/31/18 @ 12:57 by Kalina Olvera) Acute and chronic respiratory failure (Acute) Objective: General: Alert, Oriented x3, Cooperative, No apparent distress HEENT: Atraumatic, PERRLA, EOMI, Normocephalic Oral: Moist Mucosa Neck: Supple, No JVD, Trachea Midline Lungs: Clear to auscultation, No rhonchi, No wheeze, No rales, - - Poor air movement improving Cardiovascular: Regular rate, Regular Rhythm, Normal S1, Normal S2, No murmurs Abdomen: Soft, Non Tender, Non-Distended, No Hepato-splenomegaly Extremities: No edema, Capillary Refill Less than 3 Seconds Skin: No rashes, No breakdown Neurological: Neuro generally intact, Sensory exam intact to light touch and pain Psych/Mental Status: Normal Affect, Appropriate - Physical Exam Vital Signs Temp Pulse Resp BP Pulse Ox 98.0 F 70 18 152/96 H 98 12/23/18 04:40 12/23/18 07:00 12/23/18 04:55 12/23/18 04:40 12/23/18 05:01 Oxygen Flow Rate (L/min) [ 6 AMBULATION with Oxygen] Oxygen Flow Rate (L/min) 6 Oxygen Delivery Method Nasal Cannula Weight: 335 lb 1.642 oz Body Mass Index (BMI) 44.1 Intake and Output for Last 24 Hours 12/21/18 12/22/18 12/23/18 23:59 23:59 23:59 Intake Total 486 / 486 790 / 790 150 / 150 Output Total 1700 / 1700 550 / 550 325 / 325 Balance -1214 / -1214 240 / 240 -175 / -175 Microbiology Past 72 Hours 12/20/18 12:00 Blood Culture - Preliminary Blood Culture (Wb) - Anticubital Left No growth in 48 hours. 12/20/18 13:14 Blood Culture - Preliminary Blood Culture (Wb) - Left Hand No growth in 48 hours. Laboratory Tests Past 24 Hrs 12/23/18 04:20 Sodium 142 Potassium 3.6 Chloride 103 Carbon Dioxide 29.0 Anion Gap 10 BUN 22 H Creatinine 1.27 Estim Creat Clear Calc 67.28 Est GFR (MDRD) Af Amer 74 Est GFR (MDRD) Non-Af 61 BUN/Creatinine Ratio 17.3 Glucose 121 H Calcium 8.4 L Discharge Activity: Return to Normal Activity Call your doctor if you observe: Fever of 101 or Higher, Shortness of breath, Dizziness, Chest pain, Increased palpitations (irregular heartbeat) Home Medications: Medications to take at Discharge Aspirin E.C. [Ecotrin] 81 mg PO DAILY@0800 02/27/17 Ibuprofen 200 mg PO Q8H PRN PRN 02/27/17 nitroglycerin 0.4 mg sublingual tablet 0.4 mg SUBLINGUAL Q5-15M PRN 01/19/18 Tamsulosin HCl [Flomax] 0.4 mg PO DAILY 02/16/18 Ascorbic Acid [Vitamin C] 1,000 mg PO DAILY 10/18/18 Budesonide/Formoterol 160/4.5 [Symbicort 160/4.5 Mcg Inhaler (SP)] 2 puff INHALATION BID 10/18/18 Duloxetine Hcl [Cymbalta] 30 mg PO DAILY 10/18/18 Gabapentin [Neurontin] 100 mg PO DAILY PRN 10/18/18 Isosorbide Mononitrate [Imdur] 30 mg PO DAILY 10/18/18 Multivitamins,Therapeutic [Multivitamin] 1 tab PO DAILY 10/18/18 Albuterol Aerosols [Ventolin Aerosols] 2.5 mg INHALATION Q2H PRN PRN #120 vial.neb. 10/21/18 Ergocalciferol [Vitamin D] 50,000 unit PO TH 12/17/18 Lisinopril/Hydrochlorothiazide [Lisinopril-Hctz 20-12.5 mg Tab] 1 tab PO BID 12/17/18 Amlodipine [Norvasc] 10 mg PO DAILY 12/20/18 Prednisone See Taper PO DAILY 12/20/18 Carvedilol [Coreg (Beta Kelly)] 12.5 mg PO BID #60 tablet 12/23/18 Following Prescrptions Were Given to Patient: Carvedilol [Coreg (Beta Kelly)] 12.5 mg PO BID #60 tablet Primary Care Physician: Libby Murphy NP-C [Primary Care Provider] - Please follow up with your Primary Care Physician in: 3-5 days Please Follow Up With: Clifford Pena MD - Ok to see SENIOR CORPORATE STRATEGY MANAGER When: 1-2 weeks Disposition: Home with Home Health Minutes spent on discharge:: 35 Patient Condition:: Stable Medical Necessity - Tobacco Use Smoking Status: Former smoker Tobacco Use: Cigarettes Meaningful Use Info Meaningful Use Diagnoses (Choose all that apply): None applicable Code Visit Inpatient E&M: 21198 Disch Hosp
[2018-12-23] MEDS: Isosorbide Mononitrate 30 MG Tablet PO (09:45)
[2018-12-23] MEDS: predniSONE 20 MG Tablet 40 MG PO (09:45)
[2018-12-23] MEDS: amLODIPine 10 MG Tablet PO (09:45)
[2018-12-23] MEDS: Aspirin E.C. 81 MG Tablet PO (09:46)
[2018-12-23] MEDS: Carvedilol 12.5 MG Tablet PO (09:46)
[2018-12-23] MEDS: DULoxetine Hcl 30 MG Capsule PO (09:46)
[2018-12-23] MEDS: hydroCHLOROthiazide 12.5mg 12.5 MG PO (09:47)
[2018-12-23] MEDS: Tamsulosin HCl 0.4 MG Capsule PO (09:47)
[2018-12-23] MEDS: Lisinopril 20 MG Tablet PO (10:44)
--- NOTE | 2018-12-24 15:05 | CASEMGMT ---
RN CM DC PHONE CALL DC DATE: 12/23/18 DC DISPOSITION: HOME WITH [facility] GEE/LIDIA 23/02 Intro role of CM to patient via phone. Pt states [facility] nurse will be coming to home tomorrow or Wed. Reviewed medications with pt. No questions, and he states he has dc instructions with his medications to verify when to take. No further questions. Fariha CARDENASN RN ACM
== END 2018-12-23 13:31 | disposition home or self-care (01) | DRG 133 ==
LOC: ED 11:53 → PCU 13:25
PROVIDERS: Admitting Provider Family Medicine; Emergency Provider Emergency Medicine; Family Provider Nurse Practitioner Family; PCP Nurse Practitioner Family; Visit Provider Family Medicine
DX: J96.21 Acute and chronic respiratory failure with hypoxia (principal); J47.1 Bronchiectasis with (acute) exacerbation; G47.33 Obstructive sleep apnea (adult) (pediatric); I25.119 Atherosclerotic heart disease of native coronary artery with unspecified angina pectoris; I11.9 Hypertensive heart disease without heart failure; I49.3 Ventricular premature depolarization; E78.5 Hyperlipidemia, unspecified; N40.0 Benign prostatic hyperplasia without lower urinary tract symptoms; F32.9 Major depressive disorder, single episode, unspecified; E66.01 Morbid (severe) obesity due to excess calories; Z68.41 Body mass index [BMI] 40.0-44.9, adult; Z99.81 Dependence on supplemental oxygen; Z79.899 Other long term (current) drug therapy; Z87.891 Personal history of nicotine dependence; Z79.82 Long term (current) use of aspirin
CPT/HCPCS: 36415; 36600; 71045; 80048; 82803; 83605; 83735; 83880; 84100; 84484; 85025; 85027; 87040; 93005; 94002; 94640; 97162; 97166; 99285; J7030; A4216

== ENCOUNTER → 2019-01-03 14:32 | Outpatient (CLI) | payer MEDICAID, SELFPAY ==
[2018-12-31 16:19] VITALS: BMI 44.1
[2019-01-03 17:46] LABS: BNP,B-Type NATRIURETIC PEPTIDE 125.2 pg/mL (0-100)
== END ==
PROVIDERS: Nurse Practitioner Family
DX: R06.09 Other forms of dyspnea (principal)
CPT/HCPCS: 36415; 83880

== ENCOUNTER → 2019-01-23 13:45 | Outpatient (CLI) | payer MEDICAID, SELFPAY ==
[2019-01-23 12:58] VITALS: BMI 43.1
[2019-01-23 14:28] LABS: Hematocrit 44.3 % (40-54); Hemoglobin 14.5 g/dl (13.0-16.5); Mean Corp Hgb Conc 32.7 g/gl (32-36); Mean Corpuscular Hgb 30.4 pg (27.0-32.0); Mean Corpuscular Volume 92.9 fL (80-94); Mean Platelet Vol. 10.4 fl (6.2-12.0); Platelet Count 323 K/mm3 (150-450); RBC Distribution Width CV 13.3 % (11.6-14.6); RBC Distribution Width SD 44.7 fl (35.1-43.9); Red Blood Count 4.77 M/mm3 (4.6-6.2)
[2019-01-23 14:31] LABS: Allen Test POS; Base Excess 3 mmol/L (-2 to +2); Blood Gas Specimen Type ART; O2 Delivery Device Nasal Can; PO2 50 mmHG (75-100); SITE L Radial; SO2 86 % (95-99); Total Carbon Dioxide 28 mmol/L; pCO2 39.6 mmHg (35-45); pH 7.44 (7.35-7.45)
[2019-01-23 14:36] LABS: Scan Indicated on CBC? Y/N NO
[2019-01-23 14:54] LABS: Anion Gap 8 (5-15); BUN 14 mg/dL (7-18); BUN/Creat Ratio 10.6 RATIO (10-20); Calcium,Total 8.8 mg/dL (8.5-10.1); Chloride 105 mmol/L (98-107); Creatinine, Serum 1.32 mg/dL (0.70-1.30); EST Glomerular Filtration Rate 58 mL/min (>60); Est Glom Filt Rate - Afr Amer 70 mL/min (>60); Glucose 105 mg/dL (74-106); Potassium 3.3 mmol/L (3.5-5.1); Sodium Level 139 mmol/L (136-145)
[2019-01-28 09:14] LABS: Alternaria alternata <0.10 kU/L (Class 0); Aspirgillus flavus Negative (Neg:<1:1); Aspirgillus fumigatus Negative (Neg:<1:1); Aspirgillus niger Negative (Neg:<1:1); Bermuda Grass 0.53 kU/L (Class I); Bluegrass, Kentucky 0.53 kU/L (Class I); Cat Hair/Dander, Standard <0.10 kU/L (Class 0); D farinae Mite <0.10 kU/L (Class 0); D pteronyssinus <0.10 kU/L (Class 0); Dog Epithelia <0.10 kU/L (Class 0); Ragweed, Short/Common 0.48 kU/L (Class I)
[2019-01-28 11:16] LABS: Immunoglobulin E 61 IU/mL (6-495); Immunoglobulin G 730 mg/dL (700-1600); Mouse Urine <0.10 kU/L (Class 0)
== END ==
PROVIDERS: Referring Provider Nurse Practitioner Acute Care; Visit Provider Nurse Practitioner Acute Care
DX: J96.20 Acute and chronic respiratory failure, unspecified whether with hypoxia or hypercapnia (principal)
CPT/HCPCS: 36600; 80048; 82784; 82785; 82803; 85027; 86003; 86606

== ENCOUNTER → 2019-01-30 12:28 | Outpatient (CLI) | payer MEDICAID, SELFPAY ==
[2019-01-28 13:05] VITALS: BMI 43.0
[2019-01-30 12:49] LABS: Absolute Neutrophil Count 6.9 X10^3/uL (2.0-7.7); Basophil# 0.04 X10^3/uL; Basophil% 0.4 % (0-1); Hematocrit 45.2 % (40-54); Hemoglobin 14.5 g/dl (13.0-16.5); Lymphocyte % 18.4 % (19-41); Mean Corp Hgb Conc 32.1 g/gl (32-36); Mean Corpuscular Hgb 29.9 pg (27.0-32.0); Mean Corpuscular Volume 93.2 fL (80-94); Mean Platelet Vol. 10.7 fl (6.2-12.0); Monocyte# 1.37 X10^3/uL; Monocyte% 13.3 % (0-10); Neutrophil # 6.89 X10^3/uL (2.7-7.7); Neutrophil % 66.6 % (47-70); Platelet Count 266 K/mm3 (150-450); RBC Distribution Width CV 13.1 % (11.6-14.6); RBC Distribution Width SD 44.9 fl (35.1-43.9); Red Blood Count 4.85 M/mm3 (4.6-6.2); White Blood Count 10.3 K/mm3 (4.4-11.0)
[2019-01-30 12:50] LABS: POSITIVE COUNT NO; POSITIVE DIFFERENTIAL NO; POSITIVE MORPHOLOGY NO
[2019-01-30 13:14] LABS: Anion Gap 6 (5-15); BUN 16 mg/dL (7-18); BUN/Creat Ratio 11.6 RATIO (10-20); Calcium,Total 8.7 mg/dL (8.5-10.1); Chloride 105 mmol/L (98-107); Creatinine, Serum 1.38 mg/dL (0.70-1.30); EST Glomerular Filtration Rate 55 mL/min (>60); Est Glom Filt Rate - Afr Amer 67 mL/min (>60); Glucose 132 mg/dL (74-106); Potassium 3.4 mmol/L (3.5-5.1); Sodium Level 140 mmol/L (136-145)
--- NOTE | 2019-01-30 15:15 | EKG12_ITS ---
Test Reason : SOB Blood Pressure : / mmHG Vent. Rate : 079 BPM Atrial Rate : 079 BPM P-R Int : 160 ms QRS Dur : 102 ms QT Int : 386 ms P-R-T Axes : 059 005 006 degrees QTc Int : 442 ms Normal sinus rhythm Possible Left atrial enlargement Borderline ECG Confirmed by CHUCKY MORENO, BERTRAM ([id number]), purchasing expeditor MAXIM RÍOS ([id number]) on 02/01/2019 9:33:16 AM Referred By: Calista Bernal Confirmed By:BERTRAM LOCKE MD
== END ==
PROVIDERS: Family Provider Nurse Practitioner Family; PCP Nurse Practitioner Family; Visit Provider Nurse Practitioner Acute Care
DX: R06.02 Shortness of breath (principal)
CPT/HCPCS: 36415; 80048; 83880; 85025; 93005

== ENCOUNTER 2019-04-24 11:37 | Emergency (ER) | payer MEDICAID, SELFPAY ==
[2019-01-30 12:56] VITALS: BMI 43.2
[2019-04-24 11:38] VITALS: BP 141/106; PULSE 72; RESP 18; TEMP 36.8; O2SAT 99; BMI 44.0
--- NOTE | 2019-04-24 11:56 | VDLE_ITS ---
Reason For Study: Right groin pain RIGHT GSV is normal. CFV is compressible, spontaneous, phasic, competent and demonstrates normal augmentation. FV is compressible, spontaneous, phasic, competent and demonstrates normal augmentation. POP V is compressible, spontaneous, phasic, competent and demonstrates normal augmentation. T/P Trunk is compressible. PTV is compressible. RT PerV is compressible. Procedure Exam performed portable in ED. A preliminary report was called and/or faxed to Jason. Interpretation Summary Deep veins of the right lower extremity are patent and compressible segmentally. There is no evidence of right lower extremity deep vein thrombosis. Valvular competence appears intact within the proximal deep venous system on the right . The right greater saphenous vein appears patent and compressible segmentally. Ordering Physician: Guillermo Gomez Referring Physician: Libby Murphy Performed By: Hetal Mcknight RVT
--- NOTE | 2019-04-24 12:17 | ED.DCSUM_ITS ---
History of Present Illness Chief Complaint: Lower Extremity Injury Detail of Chief Complaint: There is no history of trauma or injury Informant: Patient Onset: Days - Onset 10 days ago Context: Sudden Onset Timing: Continuous Quality: Pain Location: Proximal medial right thigh Current Severity: Mild Maximum Severity: Moderate Worsened by: Palpation and movement Relieved by: Nothing Associated Symptoms: No new associated symptoms. Narrative: Patient is a 63-year-old male on continuous oxygen and under the care of hospice who presents with atraumatic proximal medial right thigh pain for the past 10 days. He states he does not do much. He sits in a chair in his chair for the past 6 months. He denies increased shortness of breath. Denies pleuritic chest pain. He denies symptoms of claudication. He denies GI or symptoms. 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 (2) Hyperlipidemia Status: Chronic (3) Hypersomnia Status: Chronic (4) Hypertension Status: Chronic (5) Left ventricular hypertrophy Status: Chronic (6) Morbid obesity with BMI of 45.0-49.9, adult Status: Chronic (7) KIRSTIE (obstructive sleep apnea) Status: Chronic Comment: BiPAP 16/10 cmH2O with a 6 L/min supplemental oxygen bleed (8) Pulmonary hypertension Status: Chronic Comment: RVSP 32 mmHg Past Medical History - Allergies and Home Meds Allergies/Adverse Reactions: Allergies codeine Adverse Reaction (Verified 04/24/19 11:43) Other-dizzy Primary Care Physician: Smita Sanchez NP-C [Primary Care Provider] - Prior records reviewed: Yes Surgical History: noncontributory, - - Right knee surgery, history of uvulopalatopharyngoplasty, left heart cath. Lives: Alone Smoking Status: Former smoker Alcohol: None Drugs: None - Family History Maternal Family History: Reports: - - Pancreatic cancer. Paternal Family History: Reports: COPD Review of Systems General: Denies: Chills, Fever, Malaise, Sweats Eyes: Denies: Visual changes - bilaterally, Diplopia ENT: Denies: Rhinorrhea, Sore throat Cardiovascular: Denies: Chest pain, Palpitations Respiratory: Denies: Dyspnea, Cough, Dyspnea on exertion Gastrointestinal: Denies: Abdominal pain, Nausea, Vomiting, Diarrhea, Melena, Hematochezia Genitourinary: Denies: Dysuria, Hematuria, Frequency Musculoskeletal: Reports: Extremity Pain. Denies: Myalgias, Arthralgias, Neck pain, Back pain, Swelling, -, - Skin: Denies: Rash, Wounds Neurological: Denies: Headache, Weakness, Numbness Hematologic: Denies: Easy bruising, Easy bleeding Allergy: Denies: Uticaria, Swelling of the mouth Physical Exam Vital Signs/Narrative: Vital Signs Temp Pulse Resp BP Pulse Ox 04/24/19 11:38 98.2 F 72 18 141/106 H 99 Inital Vital Signs reviewed: Yes General: Well nourished, Well developed, Obese, No Acute Distress Head: Normocephalic, Atraumatic ENT: Moist mucous membranes, No rhinorrhea Neck: Supple, Nontender, No lymphadenopathy, No JVD Cardiovascular: Regular rate, Regular rhythm, No murmurs, Normal S1, Normal S2 Respiratory: No distress, CTA bilaterally, Chest nontender Back: Nontender, Normal Inspection Extremities: Tenderness - Tenderness medial right thigh. Having patient AB and adductor against resistance causes him no discomfort. There is no evidence of inguinal hernia. There is no inguinal lymphadenopathy. There is evidence of stigmata consistent with peripheral arterial disease., Edema. Negative for: Nontender Skin: Normal color, Rash - Eczema and shiny skin with lack of hair. Negative for: Cyanosis, Diaphoresis, Jaundice Neurological: Alert, Oriented x3, Cranial nerves II-XII grossly intact, Normal Strength, Normal Sensation Psychological: Normal affect Diagnostic/Tx/Re-eval - Medical Decision Making With no history of trauma sedentary lifestyle pain along the distribution deep venous system venous duplex study was ordered to evaluate for DVT. There is no reproducible muscle skeletal pain. There is no evidence of trauma. There is no evidence of inguinal hernia. Verbal report of venous duplex study is negative. Since patient has no objective findings with a normal venous duplex study and is in hospice will discharge to home. ED Disposition - Plan for ED Patient: Disposition: Home or Assisted Living Diagnosis: Acute pain of right thigh Instructions: ED Acute Pain [facility] Referrals: Smita Sanchez NP-C [Primary Care Provider] - 3-5 Days if not improving Additional Instructions: You may take either ibuprofen or Aleve for your discomfort. If no improvement in 3 to 5 days follow-up with your primary care provider.
[2019-04-24 13:03] VITALS: BP 170/91; PULSE 78; RESP 18; O2SAT 96
== END 2019-04-24 13:39 | disposition home or self-care (01) ==
PROVIDERS: Emergency Provider Emergency Medicine; Family Provider Nurse Practitioner Family; PCP Nurse Practitioner Family
DX: M79.651 Pain in right thigh (principal); I25.119 Atherosclerotic heart disease of native coronary artery with unspecified angina pectoris; E78.5 Hyperlipidemia, unspecified; I11.9 Hypertensive heart disease without heart failure; E66.01 Morbid (severe) obesity due to excess calories; Z68.42 Body mass index [BMI] 45.0-49.9, adult; G47.33 Obstructive sleep apnea (adult) (pediatric); I27.20 Pulmonary hypertension, unspecified; Z51.5 Encounter for palliative care; Z79.82 Long term (current) use of aspirin; Z99.81 Dependence on supplemental oxygen; Z79.899 Other long term (current) drug therapy; Z87.891 Personal history of nicotine dependence
CPT/HCPCS: 93971; 99284